=== PATIENT | male | born 1980 | race Caucasian/White ===

== ENCOUNTER 2018-02-03 21:57 | Emergency (ER) | payer BC ==
[2018-02-03 22:12] VITALS: TEMP 98.3
--- NOTE | 2018-02-03 22:44 | XR ---
EXAMINATION TYPE: XR chest 2V DATE OF EXAM: 02/03/2018 COMPARISON: NONE HISTORY: Cough and congestion TECHNIQUE: Frontal and lateral views of the chest are obtained. FINDINGS: Heart and mediastinum are normal. Lungs are clear. Diaphragm is normal. Bony thorax appear s normal. IMPRESSION: Normal chest.
--- NOTE | 2018-02-03 23:01 | ED ---
General Adult HPI - General Chief complaint: Shortness of Breath Stated complaint: SOB/poss bronchitis Time Seen by Provider: 02/03/18 22:44 Source: patient, RN notes reviewed, old records reviewed Mode of arrival: ambulatory Limitations: no limitations - History of Present Illness Initial comments: 37-year-old male with no significant past medical history presenting for evaluation of cough and URI symptoms. Patient has had progressively worsening cough over the past 3 days. His does have similar symptoms with cough, and mild sore throat. Patient has developed some central chest pain which is only present with cough and sharp in nature. He recently traveled and believes he caught this illness on the plane. No lower extremity pain or swelling. No abdominal pain nausea vomiting. Cough is dry and nonproductive. Again his has the exact same symptoms. - Related Data Home Medications Medication Instructions Recorded Confirmed Phenylephrine/Dm/Acetaminop/GG 15 ml PO Q6H PRN 02/03/18 02/03/18 [Vicks Dayquil Severe Cold-Flu] guaiFENesin-DM 100-10MG/5ML 10 ml PO Q6H PRN 02/03/18 02/03/18 [Robitussin DM] Previous Rx's Medication Instructions Recorded Albuterol Inhaler [Ventolin Hfa 1 - 2 puff INHALATION Q4HR PRN #1 02/03/18 Inhaler] inhaler Azithromycin [Zithromax Z-pack] 0 mg PO DIRECTED #6 tab 02/03/18 predniSONE 50 mg PO DAILY #5 tab 02/03/18 Allergies Allergy/AdvReac Type Severity Reaction Status Date / Time No Known Allergies Allergy Verified 02/03/18 22:37 Review of Systems ROS Statement: Those systems with pertinent positive or pertinent negative responses have been documented in the HPI. ROS Other: All systems not noted in ROS Statement are negative. Past Medical History Past Medical History: No Reported History History of Any Multi-Drug Resistant Organisms: None Reported Past Surgical History: No Surgical Hx Reported Smoking Status: Never smoker Past Alcohol Use History: Occasional Past Drug Use History: None Reported General Exam Limitations: no limitations General appearance: alert, in no apparent distress Head exam: Present: atraumatic, normocephalic Eye exam: Present: normal appearance, PERRL, EOMI ENT exam: Present: normal exam Neck exam: Present: normal inspection. Absent: tenderness, meningismus Respiratory exam: Present: other (Pronounced bronchospastic cough.). Absent: respiratory distress, rhonchi Cardiovascular Exam: Present: regular rate, normal rhythm GI/Abdominal exam: Present: soft. Absent: distended, tenderness Extremities exam: Present: normal inspection, normal capillary refill. Absent: pedal edema, calf tenderness Neurological exam: Present: alert, oriented X3, CN II-XII intact. Absent: motor sensory deficit Psychiatric exam: Present: normal affect, normal mood Skin exam: Present: warm, dry, intact. Absent: cyanosis, diaphoretic Course Vital Signs 02/03/18 22:06 Temperature 98.3 F Pulse Rate 103 H Respiratory 20 Rate Blood Pressure 156/90 O2 Sat by Pulse 98 Oximetry Medical Decision Making - Medical Decision Making 37-year-old male with bronchospastic cough and URI symptoms and fever. He does have sick contacts. His overall well-appearing. Will be treated for bronchitis and reactive airway disease. Return with worsening or changing symptoms. Patient did have recent travel, he had an airplane flight of 3-1/2 hours. He has no lower leg pain or swelling. His presentation seems entirely infectious although there is a small possibility of PE. He will repeat present with the development of any dyspnea, chest pain, or lower extremity pain or swelling. This was discussed with the patient and his . Disposition Clinical Impression: Bronchitis Disposition: HOME SELF-CARE Condition: Good Instructions: Acute Bronchitis (ED) Prescriptions: Albuterol Inhaler [Ventolin Hfa Inhaler] 1 - 2 puff INHALATION Q4HR PRN #1 inhaler PRN Reason: Shortness Of Breath Azithromycin [Zithromax Z-pack] 0 mg PO DIRECTED #6 tab predniSONE 50 mg PO DAILY #5 tab Is patient prescribed a controlled substance at d/c from ED?: No Referrals: None,Stated [Primary Care Provider] - 1-2 days Brenda Suarez MD [STAFF PHYSICIAN] - 1-2 days Time of Disposition: 23:00
[2018-02-03 23:15] VITALS: BP 170/85; PULSE 87; RESP 18
== END 2018-02-03 23:14 | disposition home or self-care (01) ==
LOC: EC 21:57
DX: J40 Bronchitis, not specified as acute or chronic (principal)
CPT/HCPCS: 71046; 99285

== ENCOUNTER 2021-05-19 18:11 | Inpatient (IN) | payer BC ==
[2021-05-19] MEDS ORDERED: DEXAMETHASONE SOD PHOSPHATE 10 MG/ML 1 ML VIAL IV STA (20:44)
[2021-05-19] MEDS: ACETAMINOPHEN TAB 500 MG TAB PO PRN (21:03)
[2021-05-19 21:33] LABS: Basophils % (A) 0 %; Eosinophils % (A) 0 %; HCT 48.9 % (39.0-53.0); HGB 16.2 gm/dL (13.0-17.5); Lymphocytes # (A) 0.5 k/uL (1.0-4.8); Lymphocytes % (A) 5 %; MCH 29.6 pg (25.0-35.0); MCHC 33.1 g/dL (31.0-37.0); MCV 89.5 fL (80.0-100.0); Mean Platelet Volume 8.7; Monocytes # (A) 0.3 k/uL (0-1.0); Monocytes % (A) 3 %; Neutrophils # (A) 9.2 k/uL (1.3-7.7); Neutrophils % (A) 91 %; Platelet Count 126 k/uL (150-450); RBC 5.46 m/uL (4.30-5.90); RDW 13.6 % (11.5-15.5); WBC 10.1 k/uL (3.8-10.6)
[2021-05-19 21:46] LABS: Partial Thromboplastin Time 26.5 sec (22.0-30.0); Prothrombin Time 10.5 sec (9.0-12.0)
[2021-05-19 21:47] LABS: ALT 80 U/L (4-49); AST 158 U/L (17-59); African American GFR (CKD) >90 (>60 ml/min/1.73 sqM); Albumin 3.7 g/dL (3.5-5.0); Alkaline Phosphatase 79 U/L (38-126); Anion Gap 12 mmol/L; Blood Urea Nitrogen 15 mg/dL (9-20); Calcium 8.8 mg/dL (8.4-10.2); Carbon Dioxide 25 mmol/L (22-30); Chloride 99 mmol/L (98-107); Glucose 218 mg/dL (74-99); LDH 1295 U/L (313-618); Magnesium 1.5 mg/dL (1.6-2.3); Non-African American GFR(CKD) >90 (>60 ml/min/1.73 sqM); Potassium 4.6 mmol/L (3.5-5.1); Sodium 136 mmol/L (137-145); Total Bilirubin 0.8 mg/dL (0.2-1.3); Total Protein 6.9 g/dL (6.3-8.2)
[2021-05-19] MEDS ORDERED: IBUPROFEN 800 MG TAB PO STA (21:56)
[2021-05-19 22:17] LABS: C Reactive Protein 17.1 mg/dL (<1.0)
--- NOTE | 2021-05-19 22:54 | XR ---
EXAMINATION TYPE: XR chest 1V portable DATE OF EXAM: 05/19/2021 COMPARISON: 02/03/2018 HISTORY: Shortness of breath TECHNIQUE: Single frontal view of the chest is obtained. FINDINGS: There is interval noticeable increase in patchy bilateral areas of infiltrate. Limited ins piration. Heart size normal. Biapical pleural thickening. No sizable pneumothorax. IMPRESSION: Interval marked worsening appearance of the chest with bilateral multifocal areas of inf iltrate suggestive of pneumonia
[2021-05-19] MEDS ORDERED: SODIUM CHLORIDE 0.9% 500 ML 500 ML IV ONE (23:00)
--- NOTE | 2021-05-19 23:08 | ED ---
General Adult HPI - General Chief complaint: Chest Pain Stated complaint: covid+, increased SOB Time Seen by Provider: 05/19/21 20:20 Source: patient, RN notes reviewed, old records reviewed Mode of arrival: ambulatory Limitations: no limitations - History of Present Illness Initial comments: Patient is a 41-year-old male with past medical history remarkable for asthma who presents emergency Department complaining of shortness of breath and worsening COVID-19 pneumonia. I evaluate the patient once he was placed in a room. Patient states that he is been expressing worsening dyspnea as well as fevers over the last 5 days since his diagnosis of COVID-19 pneumonia. He received the monoclonal antibodies has felt worse since. He denies any history of blood clots or heart disease. Patient was not vaccinated for COVID-19. Denies any nausea, vomiting. Endorses a cough productive of intermittent sputum. Denies any diarrhea. Denies any lightheadedness. States he feels fatigued. His no other acute complaints at this time. He does endorse a bilateral chest tightness that is worse with coughing. - Related Data Home Medications Medication Instructions Recorded Confirmed Acetaminophen Tab [Tylenol Tab] 500 mg PO Q6H PRN 05/19/21 05/19/21 Albuterol Sulfate [Proair Hfa] 2 puff INHALATION RT-Q6H PRN 05/19/21 05/19/21 Amoxic-Pot Clav 875-125Mg 1 tab PO Q12HR 05/19/21 05/19/21 [Augmentin 875-125] Allergies Allergy/AdvReac Type Severity Reaction Status Date / Time No Known Allergies Allergy Verified 05/19/21 22:31 Review of Systems ROS Statement: Those systems with pertinent positive or pertinent negative responses have been documented in the HPI. Review of Systems: CONST: Endorses fever EYES: Denies blurry vision ENT: Endorses nasal congestion C/V: Endorses chest tightness RESP: Endorses shortness of breath GI: Denies abdominal pain : Denies dysuria SKIN: Denies rash. MSK: Denies joint pain. NEURO: Denies headache ROS Other: All systems not noted in ROS Statement are negative. Past Medical History Past Medical History: Asthma History of Any Multi-Drug Resistant Organisms: None Reported Past Surgical History: No Surgical Hx Reported Past Psychological History: No Psychological Hx Reported Smoking Status: Former smoker Past Alcohol Use History: Occasional Past Drug Use History: None Reported General Exam - General Exam Comments Initial Comments: General: Appears in respiratory distress. He is tachypneic on room air. Patient is febrile. HEAD: Normal with no signs of head trauma. EYES: PERRLA, EOMI, conjunctiva normal, no discharge. Pupils are 3 mm and equal bilaterally. ENT: Hearing grossly intact, normal oropharynx. Mild nasal congestion. Trachea is midline. No stridor auscultated. dry mucus membranes. RESPIRATORY: Coarse breath sounds bilaterally. No wheezes appreciated. C/V: Tachycardic with a regular rhythm. S1 and S2 auscultated. No peripheral edema. Peripheral pulses are 2+ and intact throughout. ABD: Abd is soft, nontender, nondistended EXT: Normal range of motion, no obvious deformity SKIN: No rashes or lesions observed on exposed skin. NEURO: Alert and oriented 4. Limitations: no limitations Course Vital Signs 05/19/21 05/19/21 05/19/21 19:56 20:17 21:07 Temperature 104.1 F H Pulse Rate 129 H 126 H 115 H Respiratory 36 H 22 20 Rate Blood Pressure 133/83 185/92 O2 Sat by Pulse 85 L 90 L 90 L Oximetry 05/19/21 05/19/21 05/19/21 22:06 22:37 23:42 Temperature 102.4 F H 100.5 F H Pulse Rate 109 H 117 H 94 Respiratory 20 20 20 Rate Blood Pressure 177/89 172/80 O2 Sat by Pulse 90 L 93 L Oximetry Medical Decision Making - Medical Decision Making Based on the patient's presentation and physical exam, I'm concerned for acute COVID-19 infection. Patient was not immediately brought back and placed in a room, but when he was was found to be febrile, tachycardic, tachypneic and hypoxic on room air. He was immediately placed on supplemental nasal cannula 6 L, was initially saturating in the high 80% subungual 90%'s. He remained tachypneic. Respiratory therapy was called after I requested the patient be placed on high flow nasal cannula. Work of breathing improved after this. We will obtain COVID-19 laboratory studies. He'll receive Decadron, Tylenol, albuterol treatments here in the department. He was in agreement this plan.Due to the patient's suspected mild dehydration, he will be given a 500 mL fluid bolus. Care will be made to not fluid overload the patient in the setting of COVID-19 pneumonia. EKG was remarkable for sinus tachycardia but no signs of acute ischemia. Laboratory studies were remarkable for a mild thrombocytopenia of 126. A mild lactic acidosis of 2.3. A hypomagnesemia 1.5 which was replenished. Is a mildly elevated AST of 158 and ALT of 80. LDH was elevated to 1295. Troponin is negative. CRP is elevated to 17. D-dimer is within normal limits. Patient's Covid positive. Chest x-ray shows bilateral pulmonary infiltrates. I re-evaluated the patient multiple times due to his abnormal vitals and increased work of breathing. On the latest reevaluation, patient's work of breathing has improved at this point. He is now breathing approximately 20 times per minute on 10 L high flow nasal cannula saturating 93%. Patient's fever is also improving, is now down to 100.5F and his tachycardia is improved 2. I discussed with him that I would like to admit him to the hospital for further management. He was in agreement with this plan. I contacted the admitting team,[facility] for Dr. Mckeon, who accepted the admission. I recommended that we start the patient on remdesivir which has be ordered by the inpatient team. I will consult pulmonology under Dr. Jay as well as Dr. Carrasco of [place] to evaluate the patient in the morning. - Lab Data Result diagrams: 05/19/21 20:54 05/19/21 20:54 Lab Results 05/19/21 05/19/21 05/19/21 Range/Units 20:54 20:54 20:54 WBC 10.1 (3.8-10.6) k/uL RBC 5.46 (4.30-5.90) m/uL Hgb 16.2 (13.0-17.5) gm/dL Hct 48.9 (39.0-53.0) % MCV 89.5 (80.0-100.0) fL MCH 29.6 (25.0-35.0) pg MCHC 33.1 (31.0-37.0) g/dL RDW 13.6 (11.5-15.5) % Plt Count 126 L (150-450) k/uL MPV 8.7 Neutrophils % 91 % Lymphocytes % 5 % Monocytes % 3 % Eosinophils % 0 % Basophils % 0 % Neutrophils # 9.2 H (1.3-7.7) k/uL Lymphocytes # 0.5 L (1.0-4.8) k/uL Monocytes # 0.3 (0-1.0) k/uL Eosinophils # 0.0 (0-0.7) k/uL Basophils # 0.0 (0-0.2) k/uL PT 10.5 (9.0-12.0) sec INR 1.0 (<1.2) APTT 26.5 (22.0-30.0) sec D-Dimer 0.37 (<0.60) mg/L FEU Sodium 136 L (137-145) mmol/L Potassium 4.6 (3.5-5.1) mmol/L Chloride 99 (98-107) mmol/L Carbon Dioxide 25 (22-30) mmol/L Anion Gap 12 mmol/L BUN 15 (9-20) mg/dL Creatinine 0.97 (0.66-1.25) mg/dL Est GFR (CKD-EPI)AfAm >90 (>60 ml/min/1.73 sqM) Est GFR (CKD-EPI)NonAf >90 (>60 ml/min/1.73 sqM) Glucose 218 H (74-99) mg/dL Lactic Ac Sepsis Rflx Plasma Lactic Acid Devyn (0.7-2.0) mmol/L Calcium 8.8 (8.4-10.2) mg/dL Magnesium 1.5 L (1.6-2.3) mg/dL Total Bilirubin 0.8 (0.2-1.3) mg/dL AST 158 H (17-59) U/L ALT 80 H (4-49) U/L Alkaline Phosphatase 79 (38-126) U/L Lactate Dehydrogenase 1295 H (313-618) U/L Troponin I (0.000-0.034) ng/mL C-Reactive Protein 17.1 H (<1.0) mg/dL Total Protein 6.9 (6.3-8.2) g/dL Albumin 3.7 (3.5-5.0) g/dL Coronavirus (PCR) (Not Detectd) 05/19/21 05/19/21 05/19/21 Range/Units 20:54 20:54 20:54 WBC (3.8-10.6) k/uL RBC (4.30-5.90) m/uL Hgb (13.0-17.5) gm/dL Hct (39.0-53.0) % MCV (80.0-100.0) fL MCH (25.0-35.0) pg MCHC (31.0-37.0) g/dL RDW (11.5-15.5) % Plt Count (150-450) k/uL MPV Neutrophils % % Lymphocytes % % Monocytes % % Eosinophils % % Basophils % % Neutrophils # (1.3-7.7) k/uL Lymphocytes # (1.0-4.8) k/uL Monocytes # (0-1.0) k/uL Eosinophils # (0-0.7) k/uL Basophils # (0-0.2) k/uL PT (9.0-12.0) sec INR (<1.2) APTT (22.0-30.0) sec D-Dimer (<0.60) mg/L FEU Sodium (137-145) mmol/L Potassium (3.5-5.1) mmol/L Chloride (98-107) mmol/L Carbon Dioxide (22-30) mmol/L Anion Gap mmol/L BUN (9-20) mg/dL Creatinine (0.66-1.25) mg/dL Est GFR (CKD-EPI)AfAm (>60 ml/min/1.73 sqM) Est GFR (CKD-EPI)NonAf (>60 ml/min/1.73 sqM) Glucose (74-99) mg/dL Lactic Ac Sepsis Rflx Plasma Lactic Acid Devyn 2.3 H* (0.7-2.0) mmol/L Calcium (8.4-10.2) mg/dL Magnesium (1.6-2.3) mg/dL Total Bilirubin (0.2-1.3) mg/dL AST (17-59) U/L ALT (4-49) U/L Alkaline Phosphatase (38-126) U/L Lactate Dehydrogenase (313-618) U/L Troponin I <0.012 (0.000-0.034) ng/mL C-Reactive Protein (<1.0) mg/dL Total Protein (6.3-8.2) g/dL Albumin (3.5-5.0) g/dL Coronavirus (PCR) Detected A (Not Detectd) 05/19/21 Range/Units 21:45 WBC (3.8-10.6) k/uL RBC (4.30-5.90) m/uL Hgb (13.0-17.5) gm/dL Hct (39.0-53.0) % MCV (80.0-100.0) fL MCH (25.0-35.0) pg MCHC (31.0-37.0) g/dL RDW (11.5-15.5) % Plt Count (150-450) k/uL MPV Neutrophils % % Lymphocytes % % Monocytes % % Eosinophils % % Basophils % % Neutrophils # (1.3-7.7) k/uL Lymphocytes # (1.0-4.8) k/uL Monocytes # (0-1.0) k/uL Eosinophils # (0-0.7) k/uL Basophils # (0-0.2) k/uL PT (9.0-12.0) sec INR (<1.2) APTT (22.0-30.0) sec D-Dimer (<0.60) mg/L FEU Sodium (137-145) mmol/L Potassium (3.5-5.1) mmol/L Chloride (98-107) mmol/L Carbon Dioxide (22-30) mmol/L Anion Gap mmol/L BUN (9-20) mg/dL Creatinine (0.66-1.25) mg/dL Est GFR (CKD-EPI)AfAm (>60 ml/min/1.73 sqM) Est GFR (CKD-EPI)NonAf (>60 ml/min/1.73 sqM) Glucose (74-99) mg/dL Lactic Ac Sepsis Rflx Y Plasma Lactic Acid Devyn (0.7-2.0) mmol/L Calcium (8.4-10.2) mg/dL Magnesium (1.6-2.3) mg/dL Total Bilirubin (0.2-1.3) mg/dL AST (17-59) U/L ALT (4-49) U/L Alkaline Phosphatase (38-126) U/L Lactate Dehydrogenase (313-618) U/L Troponin I (0.000-0.034) ng/mL C-Reactive Protein (<1.0) mg/dL Total Protein (6.3-8.2) g/dL Albumin (3.5-5.0) g/dL Coronavirus (PCR) (Not Detectd) - EKG Data -: EKG Interpreted by Me EKG Comments: 12-lead Electrocardiogram Interpretation Note EKG was reviewed and interpreted by myself. 12-lead ECG performed at 2008 is interpreted by me as revealing sinus tachycardia at a rate of 117 beats per minute. [place] is normal. [place] interval is 136 ms, QRS duration is 60 ms, QTc is 398 ms.. There were no ST or T wave abnormalities to suggest myocardial ischem ia or injury. R wave progression across the precordium was satisfactory. By my interpretation this EKG is non-diagnostic for acute ischemia. Critical Care Time Critical Care Time: Yes Total Critical Care Time: 30 Disposition Clinical Impression: Pneumonia due to COVID-19 virus, Acute respiratory failure with hypoxia, Lactic acidosis, Hypomagnesemia, Sinus tachycardia, Febrile illness, acute, Dehydration Disposition: ADMITTED IP TO THIS HOSP Condition: Serious
[2021-05-20] MEDS ORDERED: MAGNESIUM SULFATE-D5W PMX 1 GM in DEXTROSE/WATER 1 100ML.BAG IVPB ONE (00:04)
--- NOTE | 2021-05-20 00:28 | ED ---
Medical Decision Making - Lab Data Result diagrams: 05/19/21 20:54 05/19/21 20:54 Lab Results 05/19/21 05/19/21 05/19/21 Range/Units 20:54 20:54 20:54 WBC 10.1 (3.8-10.6) k/uL RBC 5.46 (4.30-5.90) m/uL Hgb 16.2 (13.0-17.5) gm/dL Hct 48.9 (39.0-53.0) % MCV 89.5 (80.0-100.0) fL MCH 29.6 (25.0-35.0) pg MCHC 33.1 (31.0-37.0) g/dL RDW 13.6 (11.5-15.5) % Plt Count 126 L (150-450) k/uL MPV 8.7 Neutrophils % 91 % Lymphocytes % 5 % Monocytes % 3 % Eosinophils % 0 % Basophils % 0 % Neutrophils # 9.2 H (1.3-7.7) k/uL Lymphocytes # 0.5 L (1.0-4.8) k/uL Monocytes # 0.3 (0-1.0) k/uL Eosinophils # 0.0 (0-0.7) k/uL Basophils # 0.0 (0-0.2) k/uL PT 10.5 (9.0-12.0) sec INR 1.0 (<1.2) APTT 26.5 (22.0-30.0) sec D-Dimer 0.37 (<0.60) mg/L FEU Sodium 136 L (137-145) mmol/L Potassium 4.6 (3.5-5.1) mmol/L Chloride 99 (98-107) mmol/L Carbon Dioxide 25 (22-30) mmol/L Anion Gap 12 mmol/L BUN 15 (9-20) mg/dL Creatinine 0.97 (0.66-1.25) mg/dL Est GFR (CKD-EPI)AfAm >90 (>60 ml/min/1.73 sqM) Est GFR (CKD-EPI)NonAf >90 (>60 ml/min/1.73 sqM) Glucose 218 H (74-99) mg/dL Lactic Ac Sepsis Rflx Plasma Lactic Acid Devyn (0.7-2.0) mmol/L Calcium 8.8 (8.4-10.2) mg/dL Magnesium 1.5 L (1.6-2.3) mg/dL Total Bilirubin 0.8 (0.2-1.3) mg/dL AST 158 H (17-59) U/L ALT 80 H (4-49) U/L Alkaline Phosphatase 79 (38-126) U/L Lactate Dehydrogenase 1295 H (313-618) U/L Troponin I (0.000-0.034) ng/mL C-Reactive Protein 17.1 H (<1.0) mg/dL Total Protein 6.9 (6.3-8.2) g/dL Albumin 3.7 (3.5-5.0) g/dL Coronavirus (PCR) (Not Detectd) 05/19/21 05/19/21 05/19/21 Range/Units 20:54 20:54 20:54 WBC (3.8-10.6) k/uL RBC (4.30-5.90) m/uL Hgb (13.0-17.5) gm/dL Hct (39.0-53.0) % MCV (80.0-100.0) fL MCH (25.0-35.0) pg MCHC (31.0-37.0) g/dL RDW (11.5-15.5) % Plt Count (150-450) k/uL MPV Neutrophils % % Lymphocytes % % Monocytes % % Eosinophils % % Basophils % % Neutrophils # (1.3-7.7) k/uL Lymphocytes # (1.0-4.8) k/uL Monocytes # (0-1.0) k/uL Eosinophils # (0-0.7) k/uL Basophils # (0-0.2) k/uL PT (9.0-12.0) sec INR (<1.2) APTT (22.0-30.0) sec D-Dimer (<0.60) mg/L FEU Sodium (137-145) mmol/L Potassium (3.5-5.1) mmol/L Chloride (98-107) mmol/L Carbon Dioxide (22-30) mmol/L Anion Gap mmol/L BUN (9-20) mg/dL Creatinine (0.66-1.25) mg/dL Est GFR (CKD-EPI)AfAm (>60 ml/min/1.73 sqM) Est GFR (CKD-EPI)NonAf (>60 ml/min/1.73 sqM) Glucose (74-99) mg/dL Lactic Ac Sepsis Rflx Plasma Lactic Acid Devyn 2.3 H* (0.7-2.0) mmol/L Calcium (8.4-10.2) mg/dL Magnesium (1.6-2.3) mg/dL Total Bilirubin (0.2-1.3) mg/dL AST (17-59) U/L ALT (4-49) U/L Alkaline Phosphatase (38-126) U/L Lactate Dehydrogenase (313-618) U/L Troponin I <0.012 (0.000-0.034) ng/mL C-Reactive Protein (<1.0) mg/dL Total Protein (6.3-8.2) g/dL Albumin (3.5-5.0) g/dL Coronavirus (PCR) Detected A (Not Detectd) 05/19/21 Range/Units 21:45 WBC (3.8-10.6) k/uL RBC (4.30-5.90) m/uL Hgb (13.0-17.5) gm/dL Hct (39.0-53.0) % MCV (80.0-100.0) fL MCH (25.0-35.0) pg MCHC (31.0-37.0) g/dL RDW (11.5-15.5) % Plt Count (150-450) k/uL MPV Neutrophils % % Lymphocytes % % Monocytes % % Eosinophils % % Basophils % % Neutrophils # (1.3-7.7) k/uL Lymphocytes # (1.0-4.8) k/uL Monocytes # (0-1.0) k/uL Eosinophils # (0-0.7) k/uL Basophils # (0-0.2) k/uL PT (9.0-12.0) sec INR (<1.2) APTT (22.0-30.0) sec D-Dimer (<0.60) mg/L FEU Sodium (137-145) mmol/L Potassium (3.5-5.1) mmol/L Chloride (98-107) mmol/L Carbon Dioxide (22-30) mmol/L Anion Gap mmol/L BUN (9-20) mg/dL Creatinine (0.66-1.25) mg/dL Est GFR (CKD-EPI)AfAm (>60 ml/min/1.73 sqM) Est GFR (CKD-EPI)NonAf (>60 ml/min/1.73 sqM) Glucose (74-99) mg/dL Lactic Ac Sepsis Rflx Y Plasma Lactic Acid Devyn (0.7-2.0) mmol/L Calcium (8.4-10.2) mg/dL Magnesium (1.6-2.3) mg/dL Total Bilirubin (0.2-1.3) mg/dL AST (17-59) U/L ALT (4-49) U/L Alkaline Phosphatase (38-126) U/L Lactate Dehydrogenase (313-618) U/L Troponin I (0.000-0.034) ng/mL C-Reactive Protein (<1.0) mg/dL Total Protein (6.3-8.2) g/dL Albumin (3.5-5.0) g/dL Coronavirus (PCR) (Not Detectd) Critical Care Time Critical Care Time: Yes Total Critical Care Time: 30 Critical Care Time: Upon my evaluation, this patient had a high probability of imminent or life- threatening deterioration due to hypoxic respiratory failure from Covid 19 pneum onia, which required my direct attention, intervention, and personal management. I have personally provided 30 minutes of critical care time exclusive of time spent on separately billable procedures. Time includes review of laboratory data, radiology results, discussion with consultants, and monitoring for potential decompensation. Interventions were performed as documented in my note. Disposition Clinical Impression: Pneumonia due to COVID-19 virus, Acute respiratory failure with hypoxia, Lactic acidosis, Hypomagnesemia, Sinus tachycardia, Febrile illness, acute, Dehydration Disposition: ADMITTED IP TO THIS HOSP Condition: Serious
[2021-05-20] MEDS: SYMBICORT 160-4.5 MCG INHALER INHALATION SCH ×2 (08:13→20:30)
--- NOTE | 2021-05-20 09:38 | P.CNPUL ---
History of Present Illness Consult date: 05/20/21 Requesting physician: Edward Mckeon Reason for consult: dyspnea, cough, asthma, hypoxemia, pneumonia, abnormal CXR/CT Chief complaint: Shortness of breath. History of present illness: Pulmonary/critical care consultation dated 05/20/2021. 41-year-old male presents to the emergency department on May 19, complaining of chest pain, shortness of breath, fever, soreness, and cough. The patient apparently states that he was tested positive for coronavirus on May 13. He was actually sick one or 2 days prior to that. The patient came to the emergency room because his symptoms continued to get worse, and were not getting any better. The patient is on 10 L high flow nasal O2. Not receiving any IV fluids. The patient does apparently have a history of asthma, and a previous history of tobacco use. The patient was seen in the emergency department and admitted. We saw him in the emergency room, room 27. The patient denied any GI complaints. White count 10.1, hemoglobin 16.2, hematocrit 48.9, and platelet count 126,000. PT, INR, PTT, and d-dimer were all normal. Sodium 136, p otassium, chloride, CO2, anion gap, BUN, and creatinine are all normal. Lactic acid was 2.3, repeat 1.4. AST 158, ALT 80. LDH 1295. C-reactive protein 17.1. COVID testing was positive. Chest x-ray, which we cannot see, consistent with diffuse bilateral infiltrates. The patient is unvaccinated. Review of Systems REVIEW OF SYSTEMS: CONSTITUTIONAL: Fever, chills, soreness, myalgias. NEUROLOGIC: [ Negative.] HEENT: [ Negative.] CARDIAC: [Negative.] PULMONARY: Shortness of breath, cough, chest congestion, minimal phlegm. GI: [Negative.] : [Negative.] RHEUMATOLOGIC: [ Negative.] IMMUNOLOGIC: [ Negative.] ENDOCRINE: [Negative. ] DERMATOLOGIC: [Negative.] Past Medical History Past Medical History: Asthma History of Any Multi-Drug Resistant Organisms: None Reported Past Surgical History: No Surgical Hx Reported Past Psychological History: No Psychological Hx Reported Smoking Status: Former smoker Past Alcohol Use History: Occasional Past Drug Use History: None Reported Medications and Allergies Home Medications Medication Instructions Recorded Confirmed Type Acetaminophen Tab [Tylenol Tab] 500 mg PO Q6H PRN 05/19/21 05/19/21 History Albuterol Sulfate [Proair Hfa] 2 puff INHALATION RT-Q6H PRN 05/19/21 05/19/21 History Amoxic-Pot Clav 875-125Mg 1 tab PO Q12HR 05/19/21 05/19/21 History [Augmentin 875-125] Allergies Allergy/AdvReac Type Severity Reaction Status Date / Time No Known Allergies Allergy Verified 05/19/21 22:31 Physical Exam Osteopathic Statement: *. No significant issues noted on an osteopathic stru ctural exam other than those noted in the History and Physical/Consult. Vitals: Vital Signs Temp Pulse Resp BP Pulse Ox 05/20/21 05:41 79 20 150/87 91 L 05/20/21 04:00 93 L 05/20/21 02:12 77 22 93 L 05/20/21 01:27 97.4 F L 84 20 138/79 94 L 05/19/21 23:42 100.5 F H 94 20 172/80 93 L 05/19/21 22:37 102.4 F H 117 H 20 90 L 05/19/21 22:06 109 H 20 177/89 05/19/21 21:07 115 H 20 185/92 90 L 05/19/21 20:17 126 H 22 90 L 05/19/21 19:56 104.1 F H 129 H 36 H 133/83 85 L Intake and Output 05/19/21 05/20/21 05/20/21 22:59 06:59 14:59 Intake Total 1060 Balance 1060 Intake: Intake, IV Titration 100 Amount Magnesium Sulfate-D5w Pmx 100 1 gm In Dextrose/Water 1 100ml.bag @ 100 mls/hr IVPB ONCE ONE Rx#: [id number] Oral 960 Other: # Voids 2 Weight 134.717 kg No acute distress, oriented 3. Nasal O2 in place at 10 L. HEENT examination is grossly unremarkable. Neck supple. Full range of motion. No adenopathy thyromegaly or neck vein distention. Cardiovascular examination reveals regular rhythm rate. S1-S2 normal. No S3 or S4. No discernible murmur noted. Heart rate 79 bpm. Heart sounds are distant. Lungs reveal coarse bilateral rhonchi. No wheezes or crackles. Breath sounds equal bilaterally. Saturations are 91% on 10 L high flow O2. Abdomen soft bowel sounds are heard. No masses or tenderness. Extremities are intact. No cyanosis clubbing or edema. Skin is without rash or lesion. Neurologic examination is brief but nonfocal. Results - Laboratory Findings CBC and BMP: 05/19/21 20:54 05/19/21 20:54 PT/INR, D-dimer PT 10.5 sec (9.0-12.0) 05/19/21 20:54 INR 1.0 (<1.2) 05/19/21 20:54 D-Dimer 0.37 mg/L FEU (<0.60) 05/19/21 20:54 Abnormal lab findings: Abnormal Labs 05/19/21 05/19/21 05/19/21 20:54 20:54 20:54 Plt Count 126 L Neutrophils # 9.2 H Lymphocytes # 0.5 L Sodium 136 L Glucose 218 H Plasma Lactic Acid Devyn 2.3 H* Magnesium 1.5 L AST 158 H ALT 80 H Lactate Dehydrogenase 1295 H C-Reactive Protein 17.1 H Coronavirus (PCR) 05/19/21 20:54 Plt Count Neutrophils # Lymphocytes # Sodium Glucose Plasma Lactic Acid Devyn Magnesium AST ALT Lactate Dehydrogenase C-Reactive Protein Coronavirus (PCR) Detected A - Diagnostic Findings Chest x-ray: image reviewed Assessment and Plan Assessment: Acute hypoxemic respiratory failure secondary to coronavirus associated pneumonia. History of chronic bronchial asthma. Plan: Plan dated 05/20/2021. The patient will be treated in standard fashion, and will receive vitamin C, vit nagy D3, and zinc. He will also receive Decadron, and Lovenox. Also, because of his high oxygen requirements, the patient will get a monoclonal antibody against interleukin-6 called Baricitinib. We will also add an albuterol inhaler, as well as Symbicort 160/4.5, 2 puffs twice a day. Additional recommendations and suggestions are forthcoming. Hopefully, the patient will turn around. Additional recommendations and suggestions are forthcoming. Prognosis is guarded. Time with Patient: Greater than 30
[2021-05-20] MEDS: ASCORBIC ACID 500 MG TAB PO SCH (09:42)
[2021-05-20] MEDS: ENOXAPARIN 40 MG/0.4 ML SYRINGE SQ SCH (09:43)
[2021-05-20] MEDS: ZINC SULFATE 220 MG CAP PO SCH (09:43)
[2021-05-20] MEDS: DEXAMETHASONE SOD PHOSPHATE 10 MG/ML 1 ML VIAL IV SCH ×2 (09:43→21:49)
[2021-05-20] MEDS: CHOLECALCIFEROL 25 MCG (1000 IU) TABLET PO SCH (09:44)
[2021-05-20] MEDS: BARICITINIB 2 MG TABLET PO SCH (09:44)
--- NOTE | 2021-05-21 00:29 | P.CONS ---
History of Present Illness - Reason for Consult Consult date: 05/20/21 covid 19 pneumonia Requesting physician: Edward Mckeon - Chief Complaint shortness of breath x 5 days - History of Present Illness History of present illness : Patient is 41-year-old male who is not vaccinated for COVID-19 presenting to the ER last night for evaluation of increasing shortness of breath patient symptoms started about 5 days ago and this patient who has received monoclonal antibodies however patient symptoms will get worse has been complaining of increasing shortness of breath on minimal exertion did have low O2 sat the patient also have a cough which is moderate intensity has not been up any sputum. Denies having any nausea or vomiting no a bdominal pain he did have some diarrhea on presentation to the hospital patient did have a fever of 104 F patient noticed to be hypoxic with O2 sats of 85% pneumonia currently requiring high flow oxygen patient did have a normal white count with a lymphopenia lactic acid is mildly elevated kidney function was normal liver exams are elevated roca PCR came back positive blood culture (currently pending patient did have a chest x-ray interval marked worsening appearance of the chest with bilateral multifocal areas of infiltrate patient has been admitted to hospital infectious was consulted for further management, patient evaluated by pulmonary and has been started on baricinitab Review of system: CONSTITUTIONAL: Positive for weakness along with the fever. EYES: No complaint. ENT: No complaint. RESPIRATORY: As per history of present illness CARDIOVASCULAR: No complaint. GENITOURINARY: No complaint. GASTROINTESTINAL as per history of present illness. MUSCULOSKELETAL: No complaint. INTEGUMENTARY: No complaint. PSYCHOLOGIC: No complaint. ENDOCRINE: No complaint. NEUROLOGIC: No complaint. Past medical history : Reviewed, documented below Past surgical history : Reviewed, documented below Social history: Reviewed, documented below Medications: Reviewed, as documented below EXAMINATION: Vital sigans= Reviewed and documented below GENERAL DESCRIPTION: Middle-aged male lying in bed, no distress. No tachypnea or accessory muscle of respiration use. HEENT: Shows Pallor , no scleral icterus. Oral mucous membrane is dry. NECK: Trachea central, no thyromegaly. LUNGS: Unlabored breathing. Coarse breath sounds bilaterally. No wheeze or crackle. HEART: S1, S2, regular rate and rhythm. ABDOMEN: Soft, no tenderness , guarding or rigidity EXTREMITIES: No edema of feet. SKIN: No rash, no masses palpable. NEUROLOGICAL: The patient is awake, alert, oriented x3, mood and affect normal. LABS AND RADIOLOGY: Reviewed results see below Assessment : Patient presented to hospital with acute respiratory failure from COVID-19 pneumonia in this patient who did have a extensive pneumonia on the chest x-ray and significant hypoxemia requiring high flow oxygen and this patient has failed respond to the monoclonal antibody therapy with concern for possible cytokine storm Plan: 1-patient to continue with the Baricitinab 2-dexamethasone Lovenox and ascorbic acid 3-droplet isolation and respiratory support We will follow on clinical condition and cultures to further adjust medication if needed Thank you for this consultation we will follow the patient along with you Past Medical History Past Medical History: Asthma History of Any Multi-Drug Resistant Organisms: None Reported Past Surgical History: No Surgical Hx Reported Past Psychological History: No Psychological Hx Reported Smoking Status: Former smoker Past Alcohol Use History: Occasional Past Drug Use History: None Reported Medications and Allergies Home Medications Medication Instructions Recorded Confirmed Type Acetaminophen Tab [Tylenol Tab] 500 mg PO Q6H PRN 05/19/21 05/19/21 History Albuterol Sulfate [Proair Hfa] 2 puff INHALATION RT-Q6H PRN 05/19/21 05/19/21 History Amoxic-Pot Clav 875-125Mg 1 tab PO Q12HR 05/19/21 05/19/21 History [Augmentin 875-125] Allergies Allergy/AdvReac Type Severity Reaction Status Date / Time No Known Allergies Allergy Verified 05/19/21 22:31 Physical Exam Vitals: Vital Signs Temp Pulse Resp BP Pulse Ox 05/20/21 09:46 83 18 136/79 90 L 05/20/21 05:41 79 20 150/87 91 L 05/20/21 04:00 93 L 05/20/21 02:12 77 22 93 L 05/20/21 01:27 97.4 F L 84 20 138/79 94 L 05/19/21 23:42 100.5 F H 94 20 172/80 93 L 05/19/21 22:37 102.4 F H 117 H 20 90 L 05/19/21 22:06 109 H 20 177/89 05/19/21 21:07 115 H 20 185/92 90 L 05/19/21 20:17 126 H 22 90 L 05/19/21 19:56 104.1 F H 129 H 36 H 133/83 85 L Intake and Output 05/19/21 05/20/21 05/20/21 22:59 06:59 14:59 Intake Total 1060 Balance 1060 Intake: Intake, IV Titration 100 Amount Magnesium Sulfate-D5w Pmx 100 1 gm In Dextrose/Water 1 100ml.bag @ 100 mls/hr IVPB ONCE ONE Rx#: [id number] Oral 960 Other: # Voids 2 Weight 134.717 kg Results CBC & Chem 7: 05/19/21 20:54 05/19/21 20:54 Labs: Abnormal Lab Results - Last 24 Hours (Table) 05/19/21 05/19/21 05/19/21 Range/Units 20:54 20:54 20:54 Plt Count 126 L (150-450) k/uL Neutrophils # 9.2 H (1.3-7.7) k/uL Lymphocytes # 0.5 L (1.0-4.8) k/uL Sodium 136 L (137-145) mmol/L Glucose 218 H (74-99) mg/dL Plasma Lactic Acid Devyn 2.3 H* (0.7-2.0) mmol/L Magnesium 1.5 L (1.6-2.3) mg/dL AST 158 H (17-59) U/L ALT 80 H (4-49) U/L Lactate Dehydrogenase 1295 H (313-618) U/L C-Reactive Protein 17.1 H (<1.0) mg/dL Coronavirus (PCR) (Not Detectd) 05/19/21 Range/Units 20:54 Plt Count (150-450) k/uL Neutrophils # (1.3-7.7) k/uL Lymphocytes # (1.0-4.8) k/uL Sodium (137-145) mmol/L Glucose (74-99) mg/dL Plasma Lactic Acid Devyn (0.7-2.0) mmol/L Magnesium (1.6-2.3) mg/dL AST (17-59) U/L ALT (4-49) U/L Lactate Dehydrogenase (313-618) U/L C-Reactive Protein (<1.0) mg/dL Coronavirus (PCR) Detected A (Not Detectd)
--- NOTE | 2021-05-21 00:30 | P.HPIM ---
History of Present Illness H&P Date: 05/20/21 Chief Complaint: Shortness of breath Patient is a 41-year-old male with a known history of asthma and previous history of smoking presents to ER with complaints of worsening shortness of breath, cough and fever. Patient has been sick for the past 1 week. patient was febrile with T-max of 104.1 on admission and was tachycardic and tachypneic with pulse ox 85% on room air on admission. Patient was tested positive for COVID-19 infection in May 13, 2021. Patient was symptomatic for about 2 days prior to his test. Patient was taking [id number] medications and breathing status is not improving. Presented to ER due to worsening symptoms. On admission patient was hypoxic. Chest x-ray showed interval marked worsening appearance of the chest with bilateral multifocal areas of infiltrate suggestive of pneumonia. EKG showed sinus tachycardia. Laboratory data showed WBC 10.1 hemoglobin 16.1 platelets 126 lymphocytes 0.5 Sodium 136 potassium 4.6 chloride 99 BUN 15 and creatinine 0.97 D-dimer level is 0.37 Lactic acid 2.3 magnesium 1.5 AST 158 ALT 88 and alk phos 79 LDH 1295 and CRP 17.1 and COVID-19 PCR detected. Review of Systems Constitutional: Patient does have fever and chills. Generalized weakness and malaise.. Abdomen:Patient does have cough with sputum production. Does have worsening shortness of breath.. Cardiovascular: Patient denies any chest pain or short of breath no palpitations. Respiratory: patient denied any cough or sputum production. No shortness of breath Neurologic: Patient denied any numbness or tingling headache. Musculoskeletal: Patient denies any complaints of joint swelling or deformity. Skin: Negative Psychiatric: Negative Endocrine: No heat or cold intolerance. No recent weight gain. Genitourinary: No dysuria or hematuria. All other 14 point ROS negative except the above Past Medical History Past Medical History: Asthma History of Any Multi-Drug Resistant Organisms: None Reported Past Surgical History: No Surgical Hx Reported Past Psychological History: No Psychological Hx Reported Smoking Status: Former smoker Past Alcohol Use History: Occasional Past Drug Use History: None Reported Medications and Allergies Home Medications Medication Instructions Recorded Confirmed Type Acetaminophen Tab [Tylenol Tab] 500 mg PO Q6H PRN 05/19/21 05/19/21 History Albuterol Sulfate [Proair Hfa] 2 puff INHALATION RT-Q6H PRN 05/19/21 05/19/21 History Amoxic-Pot Clav 875-125Mg 1 tab PO Q12HR 05/19/21 05/19/21 History [Augmentin 875-125] Allergies Allergy/AdvReac Type Severity Reaction Status Date / Time No Known Allergies Allergy Verified 05/19/21 22:31 Physical Exam Vitals: Vital Signs Temp Pulse Resp BP Pulse Ox 05/20/21 09:46 83 18 136/79 90 L 05/20/21 05:41 79 20 150/87 91 L 05/20/21 04:00 93 L 05/20/21 02:12 77 22 93 L 05/20/21 01:27 97.4 F L 84 20 138/79 94 L 05/19/21 23:42 100.5 F H 94 20 172/80 93 L 05/19/21 22:37 102.4 F H 117 H 20 90 L 05/19/21 22:06 109 H 20 177/89 05/19/21 21:07 115 H 20 185/92 90 L 05/19/21 20:17 126 H 22 90 L 05/19/21 19:56 104.1 F H 129 H 36 H 133/83 85 L Intake and Output 05/19/21 05/20/21 05/20/21 22:59 06:59 14:59 Intake Total 1060 Balance 1060 Intake: Intake, IV Titration 100 Amount Magnesium Sulfate-D5w Pmx 100 1 gm In Dextrose/Water 1 100ml.bag @ 100 mls/hr IVPB ONCE ONE Rx#: [id number] Oral 960 Other: # Voids 2 Weight 134.717 kg PHYSICAL EXAMINATION: Patient is lying in the bed comfortably, no acute distress, awake alert and oriented.. HEENT: Normocephalic. Neck is supple. Pupils reactive. Nostrils clear. Oral cavity is moist. Neck reveals no JVD, carotid bruits, or thyromegaly. CHEST EXAMINATION: Trachea is central. Symmetrical expansion. Scattered coarse sounds. No wheezing. Nonlabored breathing.. CARDIAC: Normal S1, S2 with no gallops. No murmurs ABDOMEN: Soft. Bowel sounds normal. No organomegaly. No abdominal bruits. Extremities: reveal no edema. No clubbing or cyanosis Neurologically awake, alert, oriented x3 with well-coordinated movements. No focal deficits noted Skin: No rash or skin lesions. Psychiatric: Cooperative. Nonsuicidal Musculoskeletal: No joint swelling or deformity. Normal range of motion. Results CBC & Chem 7: 05/19/21 20:54 05/19/21 20:54 Labs: Abnormal Lab Results - Last 24 Hours (Table) 05/19/21 05/19/21 05/19/21 Range/Units 20:54 20:54 20:54 Plt Count 126 L (150-450) k/uL Neutrophils # 9.2 H (1.3-7.7) k/uL Lymphocytes # 0.5 L (1.0-4.8) k/uL Sodium 136 L (137-145) mmol/L Glucose 218 H (74-99) mg/dL Plasma Lactic Acid Devyn 2.3 H* (0.7-2.0) mmol/L Magnesium 1.5 L (1.6-2.3) mg/dL AST 158 H (17-59) U/L ALT 80 H (4-49) U/L Lactate Dehydrogenase 1295 H (313-618) U/L C-Reactive Protein 17.1 H (<1.0) mg/dL Coronavirus (PCR) (Not Detectd) 05/19/21 Range/Units 20:54 Plt Count (150-450) k/uL Neutrophils # (1.3-7.7) k/uL Lymphocytes # (1.0-4.8) k/uL Sodium (137-145) mmol/L Glucose (74-99) mg/dL Plasma Lactic Acid Devyn (0.7-2.0) mmol/L Magnesium (1.6-2.3) mg/dL AST (17-59) U/L ALT (4-49) U/L Lactate Dehydrogenase (313-618) U/L C-Reactive Protein (<1.0) mg/dL Coronavirus (PCR) Detected A (Not Detectd) Thrombosis Risk Factor Assmnt - DVT/VTE Prophylaxis DVT/VTE Prophylaxis: Pharmacologic Prophylaxis ordered Assessment and Plan Assessment: Acute hypoxic respiratory failure secondary to COVID-19 pneumonia Lactic acidosis Hypomagnesemia Elevated LDH and CRP level due to COVID-19 infection Asthma Prior history of smoking DVT prophylaxis Plan: Patient will be continued on oxygen supplementation currently requiring 10 L via nasal cannula. Continue with duo nebs and dexamethasone and Lovenox. Patient was started baricitinib as per pulmonary recommendations. Continue to monitor respiratory status closely. Continue with ascorbic acid, zinc and vitamin D. Follow-up closely. Time with Patient: Greater than 30
[2021-05-21 06:33] LABS: Basophils % (A) 0 %; Eosinophils % (A) 0 %; HCT 45.5 % (39.0-53.0); HGB 14.9 gm/dL (13.0-17.5); Lymphocytes # (A) 0.9 k/uL (1.0-4.8); Lymphocytes % (A) 7 %; MCH 29.7 pg (25.0-35.0); MCHC 32.6 g/dL (31.0-37.0); Mean Platelet Volume 8.4; Monocytes # (A) 0.5 k/uL (0-1.0); Monocytes % (A) 4 %; Neutrophils # (A) 12.2 k/uL (1.3-7.7); Neutrophils % (A) 89 %; Platelet Count 174 k/uL (150-450); RDW 13.8 % (11.5-15.5); WBC 13.8 k/uL (3.8-10.6)
[2021-05-21 06:55] LABS: ALT 61 U/L (4-49); AST 87 U/L (17-59); African American GFR (CKD) >90 (>60 ml/min/1.73 sqM); Albumin 3.1 g/dL (3.5-5.0); Albumin/Globulin Ratio 1.1; Alkaline Phosphatase 77 U/L (38-126); Anion Gap 8 mmol/L; Blood Urea Nitrogen 24 mg/dL (9-20); Calcium 8.9 mg/dL (8.4-10.2); Carbon Dioxide 28 mmol/L (22-30); Chloride 104 mmol/L (98-107); Globulin 2.8 g/dL; Glucose 339 mg/dL (74-99); Non-African American GFR(CKD) >90 (>60 ml/min/1.73 sqM); Potassium 4.7 mmol/L (3.5-5.1); Sodium 140 mmol/L (137-145); Total Bilirubin 0.5 mg/dL (0.2-1.3); Total Protein 5.9 g/dL (6.3-8.2)
[2021-05-21] MEDS: SYMBICORT 160-4.5 MCG INHALER INHALATION SCH ×2 (08:21→19:39)
[2021-05-21] MEDS: ALBUTEROL HFA INHALER INHALATION PRN ×4 (08:21→19:39)
[2021-05-21] MEDS: BARICITINIB 2 MG TABLET PO SCH (09:01)
[2021-05-21] MEDS: CHOLECALCIFEROL 25 MCG (1000 IU) TABLET PO SCH (09:02)
[2021-05-21] MEDS: ASCORBIC ACID 500 MG TAB PO SCH (09:02)
[2021-05-21] MEDS: DEXAMETHASONE SOD PHOSPHATE 10 MG/ML 1 ML VIAL IV SCH ×2 (09:02→21:33)
[2021-05-21] MEDS: ENOXAPARIN 40 MG/0.4 ML SYRINGE SQ SCH (09:02)
[2021-05-21] MEDS: ZINC SULFATE 220 MG CAP PO SCH (09:02)
--- NOTE | 2021-05-21 14:11 | XR ---
EXAMINATION TYPE: XR chest 1V portable DATE OF EXAM: 05/21/2021 COMPARISON: 05/19/2021 HISTORY: Cough TECHNIQUE: Single frontal view of the chest is obtained. FINDINGS: Bilateral airspace and multifocal consolidations are stable. Heart size stable. No pneumot horax.. Curvature of the spine with hypertrophic changes. Tiny effusions not excluded. IMPRESSION: Bilateral patchy infiltrate stable.
--- NOTE | 2021-05-21 14:50 | P.PN ---
Subjective Progress Note Date: 05/21/21 Principal diagnosis: Dyspnea, cough, hypoxia, pneumonia 41-year-old male presents to the emergency department on May 19, complaining of chest pain, shortness of breath, fever, soreness, and cough. The patient apparently states that he was tested positive for coronavirus on May 13. He was actually sick one or 2 days prior to that. The patient came to the emergency room because his symptoms continued to get worse, and were not getting any better. The patient is on 10 L high flow nasal O2. Not receiving any IV fluids. The patient does apparently have a history of asthma, and a previous history of tobacco use. The patient was seen in the emergency department and admitted. We saw him in the emergency room, room 27. The patient denied any GI complaints. White count 10.1, hemoglobin 16.2, hematocrit 48.9, and platelet count 126,000. PT, INR, PTT, and d-dimer were all normal. Sodium 136, potassium, chloride, CO2, anion gap, BUN, and creatinine are all normal. Lactic acid was 2.3, repeat 1.4. AST 158, ALT 80. LDH 1295. C-reactive protein 17.1. COVID testing was positive. Chest x-ray, which we cannot see, consistent with diffuse bilateral infiltrates. The patient is unvaccinated. On 05/21/2021 patient seen in follow-up in medical surgical floor, since yesterday his oxygen demand has increased, he is currently at 60 L and FiO2 of 94%, in addition his been having to wear a nonrebreather mask on and off. On Airvo without the nonrebreather mask his pulse ox is ranging between 82-85%. Patient states he becomes especially short of breath with any exertion. But he is awake and alert, oriented 3, he has not been able to prone, he only tried it once, however he said his breathing got worse and he could not tolerate it, he was encouraged to at least reposition self from side to side. No fever, his vital signs have been stable other than worsening hypoxemia. Repeat chest x-ray has been obtained showing bilateral patchy infiltrates. Patient is on Decadron 6 mg twice daily, he was started on Baricitinib, is on prophylactic dose Lovenox 40 mg daily, and COVID vitamins. Today's lab work has been reviewed his white blood cell count is 13.8, hemoglobin is 14.9, d-dimer is pending, electrolytes were within normal limits, and his BUN is 24, creatinine is 0.91, his AST and ALT slightly improved and are down to 87 and 61 respectively, alkaline phosphatase is 77, his pro calcitonin level was increased at 1.83. Overall upon physical exam patient does not appear to be in any acute distress, he states he was able to taken at this morning, he felt better after that, denies any chest discomfort, he states he doesn't feel like his fatigued, does not appear to be using any accessory muscles of breathing. Objective - Vital Signs Vital signs: Vital Signs Temp 98.4 F 05/21/21 10:11 Pulse 102 H 05/21/21 10:11 Resp 17 05/21/21 10:11 BP 112/68 05/21/21 10:11 Pulse Ox 85 L 05/21/21 10:11 Intake & Output 05/20/21 05/21/21 05/21/21 18:59 06:59 18:59 Intake Total 360 Output Total 554 Balance -194 Intake: Oral 360 Output: Urine 554 Other: Voiding Method Toilet Toilet Urinal Urinal # Voids 1 - Exam GENERAL EXAM: Alert, very pleasant, 41-year-old male, on Airvo, at 60 L and FiO2 of 94%, with a pulse ox between 82-85%, and patient has been wearing the nonrebreather mask on and off along with the Airvo device comfortable in no apparent distress. HEAD: Normocephalic/atraumatic. EYES: Normal reaction of pupils, equal size. Conjunctiva pink, sclera white. NOSE: Clear with pink turbinates. THROAT: No erythema or exudates. NECK: No masses, no JVD, no thyroid enlargement, no adenopathy. CHEST: No chest wall deformity. Symmetrical expansion. LUNGS: Equal air entry with bibasilar crackles CVS: Regular rate and rhythm, normal S1 and S2, no gallops, no murmurs, no rubs ABDOMEN: Soft, nontender. No hepatosplenomegaly, normal bowel sounds, no guar ding or rigidity. EXTREMITIES: No clubbing, no edema, no cyanosis, 2+ pulses and upper and lower extremities. MUSCULOSKELETAL: Muscle strength and tone normal. SPINE: No scoliosis or deformity SKIN: No rashes CENTRAL NERVOUS SYSTEM: Alert and oriented -3. No focal deficits, tone is normal in all 4 extremities. PSYCHIATRIC: Alert and oriented -3. Appropriate affect. Intact judgment and insight. - Labs CBC & Chem 7: 05/21/21 05:52 05/21/21 05:52 Labs: Abnormal Lab Results - Last 24 Hours (Table) 05/19/21 05/21/21 05/21/21 Range/Units 20:54 05:52 05:52 WBC 13.8 H (3.8-10.6) k/uL Neutrophils # 12.2 H (1.3-7.7) k/uL Lymphocytes # 0.9 L (1.0-4.8) k/uL BUN 24 H (9-20) mg/dL Glucose 339 H (74-99) mg/dL AST 87 H (17-59) U/L ALT 61 H (4-49) U/L Total Protein 5.9 L (6.3-8.2) g/dL Albumin 3.1 L (3.5-5.0) g/dL Procalcitonin 1.83 H (0.02-0.09) ng/mL Microbiology - Last 24 Hours (Table) 05/19/21 21:14 Blood Culture - Preliminary Blood No Growth after 24 hours 05/19/21 21:00 Blood Culture - Preliminary Blood No Growth after 24 hours Assessment and Plan Plan: Assessment: #1. Acute and severe hypoxic respiratory failure related to acute COVID-19 pneumonia, patient presented with one-week history of symptoms including shortness of breath, cough, fever. Patient is non-vaccinated. Status post monoclonal antibiotic infusion. Patient was not a candidate for Remdesivir while in the hospital, was started on Baricitinib on 05/20/2021 #2. Former smoker #3. History of chronic bronchial asthma, unspecified #4. Elevated inflammatory markers related to COVID-19 infection #5. Mild lactic acidosis, improved with IV hydration #6. Elevated pro-calcitonin level, we'll discontinue Baricitinib Plan: Patient is severely hypoxic requiring both Airvo at maximal settings of 60 L and FiO2 of 94% in addition to 100% nonrebreather mask on and off However does not appear to be in any acute distress, we may place him on BiPAP support with pressures of 14 and 6 and FiO2 of 100% and PEEP if he becomes fatigued Today's chest x-ray has been reviewed showing bilateral patchy infiltrates Obtain Stat d-dimer, inflammatory markers If d-dimer comes back elevated we will proceed with CTA chest to rule out possibility of pulmonary embolism Continue with current dose Lovenox Continue close monitoring, if worsening dyspnea and hypoxia may transfer to the intensive care unit We'll stop the Baricitinib in view of elevated pro-calcitonin We will send a repeat pro-calcitonin tomorrow We'll continue to follow I performed a history & physical examination of the patient and discussed their management with my nurse practitioner, Cady Ospina. I reviewed the nurse practitioner's note and agree with the documented findings and plan of care. Lung sounds are positive for throughout the lung saleh. The findings and the impression was discussed with the patient. I attest to the documentation by the nurse practitioner. Time with Patient: Less than 30
[2021-05-21 15:32] LABS: C Reactive Protein 8.2 mg/dL (<1.0)
--- NOTE | 2021-05-21 19:21 | CT ---
EXAMINATION TYPE: CT chest angio for PE DATE OF EXAM: 05/21/2021 COMPARISON: None HISTORY: Severe hypoxia, Covid 19, resp. failure on high flow. CT DLP: 835.6 mGycm Automated exposure control for dose reduction was used. CONTRAST: Performed with IV Contrast, patient injected with 100 mL of Isovue 370. There are 3-D post processed images. There is extensive interstitial and airspace infiltrate throughout both lungs. There is no pleural ef fusion. Heart size is normal. There is no pericardial effusion. There is some fatty infiltration of t he liver. There are no hilar masses. There is no mediastinal adenopathy. Thoracic aorta is intact. There is no aneurysm or dissection. There is normal contrast opacification of the pulmonary arteries. There are no filling defects. IMPRESSION: No evidence of pulmonary embolism. Extensive bilateral pneumonia. Fatty infiltration of the liver.
--- NOTE | 2021-05-22 06:52 | PN ---
PROGRESS NOTE DATE OF SERVICE: 05/21/2021 REASON FOR FOLLOWUP: COVID-19 pneumonia. INTERVAL HISTORY: Patient is afebrile. The patient is still complaining of shortness of breath and is requiring high-flow oxygen. The patient denies having any worsening chest pain. He did have a cough but not bringing any sputum. No abdominal pain or diarrhea. PHYSICAL EXAMINATION: Blood pressure 129/77 with a pulse of 81, temperature 98.3. He is 89% on high- flow oxygen. General description is a middle-aged male lying in bed in no distress. Respiratory system: Unlabored breathing, decreased intensity of breath sounds. No wheeze or crackles. Heart S1, S2. Regular rate and rhythm. Abdomen: Soft, no tenderness. LABS: Hemoglobin is 14.9, white count 13.8. D-dimer is 0.27, creatinine 0.91. IMPRESSION/PLAN: Patient with acute respiratory failure secondary to Covid 19 pneumonia in this patient who did have a CT angiogram of the chest that has been negative for PE. Did show signs of bilateral pneumonia. The patient is covered with baricitinib, Lovenox, dexamethasone, zinc and ascorbic acid to continue and monitor clinical course closely. Continue supportive care. MMODL / IJN: [id number] /
[2021-05-22] MEDS: ASCORBIC ACID 500 MG TAB PO SCH (08:53)
[2021-05-22] MEDS: ENOXAPARIN 40 MG/0.4 ML SYRINGE SQ SCH (08:53)
[2021-05-22] MEDS: ZINC SULFATE 220 MG CAP PO SCH (08:53)
[2021-05-22] MEDS: DEXAMETHASONE SOD PHOSPHATE 10 MG/ML 1 ML VIAL IV SCH ×2 (08:53→20:51)
[2021-05-22] MEDS: CHOLECALCIFEROL 25 MCG (1000 IU) TABLET PO SCH (08:53)
[2021-05-22] MEDS: ALBUTEROL HFA INHALER INHALATION PRN ×3 (10:19→20:46)
[2021-05-22] MEDS: SYMBICORT 160-4.5 MCG INHALER INHALATION SCH ×2 (10:19→20:46)
[2021-05-22 11:00] LABS: African American GFR (CKD) >90 (>60 ml/min/1.73 sqM); Anion Gap 10 mmol/L; Blood Urea Nitrogen 32 mg/dL (9-20); Calcium 9.1 mg/dL (8.4-10.2); Carbon Dioxide 25 mmol/L (22-30); Chloride 103 mmol/L (98-107); Glucose 416 mg/dL (74-99); LDH 1046 U/L (313-618); Non-African American GFR(CKD) >90 (>60 ml/min/1.73 sqM); Potassium 4.9 mmol/L (3.5-5.1); Sodium 138 mmol/L (137-145)
[2021-05-22 11:09] LABS: Basophils % (A) 0 %; Eosinophils % (A) 0 %; HCT 45.3 % (39.0-53.0); HGB 14.6 gm/dL (13.0-17.5); Lymphocytes # (A) 0.7 k/uL (1.0-4.8); Lymphocytes % (A) 6 %; MCH 29.6 pg (25.0-35.0); MCHC 32.1 g/dL (31.0-37.0); MCV 92.2 fL (80.0-100.0); Mean Platelet Volume 8.5; Monocytes # (A) 0.7 k/uL (0-1.0); Monocytes % (A) 6 %; Neutrophils # (A) 9.4 k/uL (1.3-7.7); Neutrophils % (A) 86 %; Platelet Count 206 k/uL (150-450); RBC 4.91 m/uL (4.30-5.90); RDW 13.7 % (11.5-15.5)
[2021-05-22 11:40] LABS: C Reactive Protein 3.2 mg/dL (<1.0)
[2021-05-22 11:47] LABS: Glucose,Whole Blood 383 mg/dL (75-99)
[2021-05-22] MEDS: INSULIN ASPART (NovoLOG) 100 UNIT/ML VIAL SQ SCH ×3 (12:56→20:51)
--- NOTE | 2021-05-22 13:53 | P.PN ---
Subjective Progress Note Date: 05/22/21 Principal diagnosis: Dyspnea, cough, hypoxia, pneumonia 41-year-old male presents to the emergency department on May 19, complaining of chest pain, shortness of breath, fever, soreness, and cough. The patient apparently states that he was tested positive for coronavirus on May 13. He was actually sick one or 2 days prior to that. The patient came to the emergency room because his symptoms continued to get worse, and were not getting any better. The patient is on 10 L high flow nasal O2. Not receiving any IV fluids. The patient does apparently have a history of asthma, and a previous history of tobacco use. The patient was seen in the emergency department and admitted. We saw him in the emergency room, room 27. The patient denied any GI complaints. White count 10.1, hemoglobin 16.2, hematocrit 48.9, and platelet count 126,000. PT, INR, PTT, and d-dimer were all normal. Sodium 136, potassium, chloride, CO2, anion gap, BUN, and creatinine are all normal. Lactic acid was 2.3, repeat 1.4. AST 158, ALT 80. LDH 1295. C-reactive protein 17.1. COVID testing was positive. Chest x-ray, which we cannot see, consistent with diffuse bilateral infiltrates. The patient is unvaccinated. On 05/21/2021 patient seen in follow-up in medical surgical floor, since yesterday his oxygen demand has increased, he is currently at 60 L and FiO2 of 94%, in addition his been having to wear a nonrebreather mask on and off. On Airvo without the nonrebreather mask his pulse ox is ranging between 82-85%. Patient states he becomes especially short of breath with any exertion. But he is awake and alert, oriented 3, he has not been able to prone, he only tried it once, however he said his breathing got worse and he could not tolerate it, he was encouraged to at least reposition self from side to side. No fever, his vital signs have been stable other than worsening hypoxemia. Repeat chest x-ray has been obtained showing bilateral patchy infiltrates. Patient is on Decadron 6 mg twice daily, he was started on Baricitinib, is on prophylactic dose Lovenox 40 mg daily, and COVID vitamins. Today's lab work has been reviewed his white blood cell count is 13.8, hemoglobin is 14.9, d-dimer is pending, electrolytes were within normal limits, and his BUN is 24, creatinine is 0.91, his AST and ALT slightly improved and are down to 87 and 61 respectively, alkaline phosphatase is 77, his pro calcitonin level was increased at 1.83. Overall upon physical exam patient does not appear to be in any acute distress, he states he was able to taken at this morning, he felt better after that, denies any chest discomfort, he states he doesn't feel like his fatigued, does not appear to be using any accessory muscles of breathing. On 05/22/2021 patient seen in follow-up on medical surgical floor. He remains on Airvo at 60 L and FiO2 of 93% in addition to 100% nonrebreather mask, and his O2 saturations on both of those things are around 85-88%. Patient is not wearing nonrebreather mask continuously, he states is uncomfortable, he does not want to wear it. He is wearing only intermittently. CT chest was completed yesterday showing no evidence of pulmonary embolism, and extensive bilateral pneumonia. There is fatty infiltration of the liver. Yesterday's d-dimer was 0.7, its 0.40 on today's labs, LDH status 1046, relatively stable. He is on D ecadron 6 mg daily, he is on prophylactic Lovenox, had to discontinue his bare sitting up yesterday in view of his elevated pro calcitonin and possibility of developing bacterial superinfection. Blood cultures have been negative. Final cultures are pending. he has been afebrile, occasional cough, not bringing up any phlegm. Does not appear to be in any acute distress, although his pulse ox is around 83% on Airvo, patient states he does not want to be intubated and placed on mechanical ventilator, he wants to try to ride it out, patient states there is no way he is going on the ventilator so the hospital can make more money off him. There was a long discussion at the bedside explaining to the patient the importance of maintaining adequate oxygenation to prevent organ damage and failure. However the patient stated he would rather than go on the ventilator Objective - Vital Signs Vital signs: Vital Signs Temp 98.5 F 05/22/21 10:00 Pulse 79 05/22/21 10:00 Resp 19 05/22/21 10:00 BP 126/73 05/22/21 10:00 Pulse Ox 88 L 05/22/21 10:19 Intake & Output 05/21/21 05/22/21 05/22/21 18:59 06:59 18:59 Intake Total 1000 Output Total 2200 Balance -2200 1000 Intake: Oral 1000 Output: Urine 2200 Other: Voiding Method Toilet Urinal # Voids 2 3 - Exam GENERAL EXAM: Alert, argumentative 41-year-old male, on Airvo, at 60 L and FiO2 of 94%, with a pulse ox between 82-85%, and patient has been wearing the nonrebreather mask on and off along with the Airvo device comfortable in no apparent distress. HEAD: Normocephalic/atraumatic. EYES: Normal reaction of pupils, equal size. Conjunctiva pink, sclera white. NOSE: Clear with pink turbinates. THROAT: No erythema or exudates. NECK: No masses, no JVD, no thyroid enlargement, no adenopathy. CHEST: No chest wall deformity. Symmetrical expansion. LUNGS: Equal air entry with bibasilar crackles CVS: Regular rate and rhythm, normal S1 and S2, no gallops, no murmurs, no rubs ABDOMEN: Soft, nontender. No hepatosplenomegaly, normal bowel sounds, no guardi ng or rigidity. EXTREMITIES: No clubbing, no edema, no cyanosis, 2+ pulses and upper and lower extremities. MUSCULOSKELETAL: Muscle strength and tone normal. SPINE: No scoliosis or deformity SKIN: No rashes CENTRAL NERVOUS SYSTEM: Alert and oriented -3. No focal deficits, tone is normal in all 4 extremities. PSYCHIATRIC: Alert and oriented -3. Appropriate affect. Intact judgment and insight. - Labs CBC & Chem 7: 05/22/21 09:53 05/22/21 09:53 Labs: Abnormal Lab Results - Last 24 Hours (Table) 05/19/21 05/21/21 05/22/21 Range/Units 20:54 05:52 09:53 WBC 11.0 H (3.8-10.6) k/uL Neutrophils # 9.4 H (1.3-7.7) k/uL Lymphocytes # 0.7 L (1.0-4.8) k/uL BUN (9-20) mg/dL Glucose (74-99) mg/dL POC Glucose (mg/dL) (75-99) mg/dL Ferritin 2633.0 H (22.0-322.0) ng/mL Lactate Dehydrogenase 1006 H (313-618) U/L C-Reactive Protein 8.2 H (<1.0) mg/dL 05/22/21 05/22/21 Range/Units 09:53 11:46 WBC (3.8-10.6) k/uL Neutrophils # (1.3-7.7) k/uL Lymphocytes # (1.0-4.8) k/uL BUN 32 H (9-20) mg/dL Glucose 416 H (74-99) mg/dL POC Glucose (mg/dL) 383 H (75-99) mg/dL Ferritin (22.0-322.0) ng/mL Lactate Dehydrogenase 1046 H (313-618) U/L C-Reactive Protein 3.2 H (<1.0) mg/dL Microbiology - Last 24 Hours (Table) 05/19/21 21:14 Blood Culture - Preliminary Blood No Growth after 48 hours 05/19/21 21:00 Blood Culture - Preliminary Blood No Growth after 48 hours Assessment and Plan Plan: Assessment: #1. Acute and severe hypoxic respiratory failure related to acute COVID-19 pneumonia, patient presented with one-week history of symptoms including shortness of breath, cough, fever. Patient is non-vaccinated. Status post monoclonal antibiotic infusion. Patient was not a candidate for Remdesivir while in the hospital, was started on Baricitinib on 05/20/2021. Baricitinib was discontinued yesterday on 05/21/2021 in view of elevated pro-calcitonin level suggesting presence of a bacterial infection and possibility of developing an overwhelming superinfection #2. Former smoker #3. History of chronic bronchial asthma, unspecified #4. Elevated inflammatory markers related to COVID-19 infection #5. Mild lactic acidosis, improved with IV hydration #6. Elevated pro-calcitonin level, we'll discontinue Baricitinib Plan: Continue current medical treatment Patient remains on Airvo a 60 L and FiO2 of 93% in addition to nonrebreather mask, he remains hypoxic with pulse ox of 83-88% He thinks he does not want to go on life-support even if that means he would Seems to have a lot of misconceptions about COVID, he thinks the hospital is trying to make money off him going on vent There was a discussion at the bedside explained to the patient that he may require ventilator support until his lungs recover and able to adequately oxygenate on their own Patient is adamant about not intubation He thinks he is going to be only a week in the hospital Overall prognosis is quite guarded, We'll continue current medical treatment I performed a history & physical examination of the patient and discussed their management with my nurse practitioner, Cady Ospina. I reviewed the nurse practitioner's note and agree with the documented findings and plan of care. Lung sounds are positive for throughout the lung saleh. The findings and the impression was discussed with the patient. I attest to the documentation by the nurse practitioner. Time with Patient: Less than 30
[2021-05-22 17:09] LABS: Glucose,Whole Blood 375 mg/dL (75-99)
[2021-05-22 20:35] LABS: Glucose,Whole Blood 385 mg/dL (75-99)
[2021-05-23 06:59] LABS: Glucose,Whole Blood 325 mg/dL (75-99)
[2021-05-23] MEDS: ASCORBIC ACID 500 MG TAB PO SCH (08:22)
[2021-05-23] MEDS: DEXAMETHASONE SOD PHOSPHATE 10 MG/ML 1 ML VIAL IV SCH ×2 (08:22→21:11)
[2021-05-23] MEDS: CHOLECALCIFEROL 25 MCG (1000 IU) TABLET PO SCH (08:22)
[2021-05-23] MEDS: INSULIN ASPART (NovoLOG) 100 UNIT/ML VIAL SQ SCH ×4 (08:22→21:11)
[2021-05-23] MEDS: ZINC SULFATE 220 MG CAP PO SCH (08:22)
[2021-05-23] MEDS: ENOXAPARIN 40 MG/0.4 ML SYRINGE SQ SCH (08:23)
[2021-05-23] MEDS: ALBUTEROL HFA INHALER INHALATION PRN ×3 (09:23→16:14)
[2021-05-23] MEDS: SYMBICORT 160-4.5 MCG INHALER INHALATION SCH ×2 (09:23→23:55)
--- NOTE | 2021-05-23 11:21 | CDI ---
Documentation Clarification Form Date: 05/23/2021 10:50 AM CDS: Kristy Noel RN, CCDS Admit Date: 05/19/2021 Patient Name: Akhil Foster ATTENTION: The Clinical Documentation Specialists (CDI) and [facility] Coding Staff appreciate your assistance in clarifying documentation. Please respond to the clarification below the line at the bottom and electronically sign. The CDI & [facility] Coding staff will review the response and follow-up if needed. Please note: Queries are made part of the Legal Health Record. If you have any questions, please contact the author of this message via ITS. Dr. Luu, The patient presented with the following clinical indicators. Additional clarification regarding the etiology/cause of the clinical indicators is requested. History/Risk Factors: 41-year-old male presents to the ED with worsening shortness of breath cough, fever, chills and generalized weakness. Medical History: Asthma Clinical Indicators: WBC 05/19: 10.1 Lactic acid 05/19: 2.3 Blood cultures 05/19: No growth after 72 hours Vitals signs: B/P 133/83, HR 129, Temp 104.1F Oral, RR 36, SpO2 85% ra. Treatment: ID Consult: 05/20 Patient presented to hospital with acute respiratory failure from COVID 19 pneumonia with extensive pneumonia on chest xray, requiring high flow oxygen. Failed to respond to the monoclonal antibody therapy for concern of possible cytokine storm. Medications: 05/19 - current Tylenol 1,000mg PO Q6H PRN, 05/19 Motrin 800mg PO Once x 1, 05/19 Decadron 10mg IV x1, 05/20 current Decadron 6mg IV BID, 05/20 d/c 05/21 Baricinib 4mg PO Daily, 05/20 to current Zinc 220mg PO Daily. IV Bolus: 05/19 0.9ns 500cc bolus x1, In your professional opinion, please clarify if these findings signify one of the following conditions: [ ] Sepsis POA [ ] Sepsis ruled out [ ] SIRS, without underlying infectious process [ ] Other, please specify [ ] Unable to determine SIRS Criteria: 2 or more of the following may indicate SIRS -Temperature < 96.8F (36C) or > 101.0F (38.3C) -Heart Rate > 90 bpm -Respiratory Rate > 20 breaths/min or PaCO2 < 32 mmHg -White Blood Cell Count > 12,000 or < 4,000 cells/mm3 or > 10% bands (Template Last Reviewed: September 2020) Unable to determine MTDD
[2021-05-23 11:44] LABS: Glucose,Whole Blood 345 mg/dL (75-99)
--- NOTE | 2021-05-23 14:33 | P.PN ---
Subjective Progress Note Date: 05/23/21 Principal diagnosis: Coronavirus pneumonia. 41-year-old male presents to the emergency department on May 19, complaining of chest pain, shortness of breath, fever, soreness, and cough. The patient apparently states that he was tested positive for coronavirus on May 13. He was actually sick one or 2 days prior to that. The patient came to the emergency room because his symptoms continued to get worse, and were not getting any better. The patient is on 10 L high flow nasal O2. Not receiving any IV fluids. The patient does apparently have a history of asthma, and a previous history of tobacco use. The patient was seen in the emergency department and admitted. We saw him in the emergency room, room 27. The patient denied any GI complaints. White count 10.1, hemoglobin 16.2, hematocrit 48.9, and platelet count 126,000. PT, INR, PTT, and d-dimer were all normal. Sodium 136, potassium, chloride, CO2, anion gap, BUN, and creatinine are all normal. Lactic acid was 2.3, repeat 1.4. AST 158, ALT 80. LDH 1295. C-reactive protein 17.1. COVID testing was positive. Chest x-ray, which we cannot see, consistent with diffuse bilateral infiltrates. The patient is unvaccinated. On 05/21/2021 patient seen in follow-up in medical surgical floor, since his oxygen demand has increased, he is currently at 60 L and FiO2 of 94%, in addition his been having to wear a nonrebreather mask on and off. On Airvo without the nonrebreather mask his pulse ox is ranging between 82-85%. Patient states he becomes especially short of breath with any exertion. But he is awake and alert, oriented 3, he has not been able to prone, he only tried it once, however he said his breathing got worse and he could not tolerate it, he was encouraged to at least reposition self from side to side. No fever, his vital signs have been stable other than worsening hypoxemia. Repeat chest x-ray has been obtained showing bilateral patchy infiltrates. Patient is on Decadron 6 mg twice daily, he was started on Baricitinib, is on prophylactic dose Lovenox 40 mg daily, and COVID vitamins. Today's lab work has been reviewed his white blood cell count is 13.8, hemoglobin is 14.9, d-dimer is pending, electrolytes were within normal limits, and his BUN is 24, creatinine is 0.91, his AST and ALT slightly improved and are down to 87 and 61 respectively, alkaline p hosphatase is 77, his pro calcitonin level was increased at 1.83. Overall upon physical exam patient does not appear to be in any acute distress, he states he was able to taken at this morning, he felt better after that, denies any chest discomfort, he states he doesn't feel like his fatigued, does not appear to be using any accessory muscles of breathing. On 05/22/2021 patient seen in follow-up on medical surgical floor. He remains on Airvo at 60 L and FiO2 of 93% in addition to 100% nonrebreather mask, and his O2 saturations on both of those things are around 85-88%. Patient is not weari ng nonrebreather mask continuously, he states is uncomfortable, he does not want to wear it. He is wearing only intermittently. CT chest was completed yesterday showing no evidence of pulmonary embolism, and extensive bilateral pneumonia. There is fatty infiltration of the liver. Yesterday's d-dimer was 0.7, its 0.40 on today's labs, LDH status 1046, relatively stable. He is on Decadron 6 mg daily, he is on prophylactic Lovenox, had to discontinue his bare sitting up yesterday in view of his elevated pro calcitonin and possibility of developing bacterial superinfection. Blood cultures have been negative. Final cultures are pending. he has been afebrile, occasional cough, not bringing up any phlegm. Does not appear to be in any acute distress, although his pulse ox is around 83% on Airvo, patient states he does not want to be intubated and placed on mechanical ventilator, he wants to try to ride it out, patient states there is no way he is going on the ventilator so the hospital can make more money off him. There was a long discussion at the bedside explaining to the patient the importance of maintaining adequate oxygenation to prevent organ damage and failure. However the patient stated he would rather than go on the ventilator Progress note dated 05/23/2021. The patient is again seen today in room 484. He is actually laying on his back. He is getting nonrebreather on as well as AIRVO. Clinically, he appears to be doing better and he states that he does feel better. He knows to rotate in bed quite a bit, right side down, left side down, supine, and prone. Today, we put him on Zosyn as we are concerned about an elevated pro calcitonin level. Computed tomography scan of the chest did not reveal pulmonary embolism. He states that his breathing is much improved. He denies other complaints. No new labs today other than a glucose of 345. Objective - Vital Signs Vital signs: Vital Signs Temp 98.4 F 05/23/21 09:33 Pulse 75 05/23/21 09:33 Resp 18 05/23/21 09:33 BP 143/69 05/23/21 09:33 Pulse Ox 88 L 05/23/21 09:33 Intake & Output 05/22/21 05/23/21 05/23/21 18:59 06:59 18:59 Intake Total 120 240 Output Total 700 400 Balance -700 -280 240 Intake: Oral 120 240 Output: Urine 700 400 Other: Voiding Method Urinal Bedside Commode Bedside Commode Urinal Urinal # Voids 1 - Exam No acute distress, oriented 3. No conversational dyspnea or use of accessory muscles. The patient has a nonrebreather mask on as well as AIRVO. HEENT examination is grossly unremarkable. Neck supple. Full range of motion. No adenopathy thyromegaly or neck vein distention. Cardiovascular examination reveals regular rhythm rate. S1-S2 normal. No S3 or S4. No discernible murmur noted. Heart rate 75 bpm. Heart sounds are distant. Lungs reveal bibasilar crackles. No rhonchi or wheezes. Breath sounds equal. Abdomen soft bowel sounds are heard. No masses or tenderness. Extremities are intact. No cyanosis clubbing or edema. Skin is without rash or lesion. Neurologic examination is brief but nonfocal. - Labs CBC & Chem 7: 05/22/21 09:53 05/22/21 09:53 Labs: Abnormal Lab Results - Last 24 Hours (Table) 05/22/21 05/22/21 05/22/21 Range/Units 09:53 17:03 20:33 POC Glucose (mg/dL) 375 H 385 H (75-99) mg/dL Procalcitonin 1.59 H (0.02-0.09) ng/mL 05/23/21 05/23/21 Range/Units 06:57 11:42 POC Glucose (mg/dL) 325 H 345 H (75-99) mg/dL Procalcitonin (0.02-0.09) ng/mL Microbiology - Last 24 Hours (Table) 05/19/21 21:14 Blood Culture - Preliminary Blood No Growth after 72 hours 05/19/21 21:00 Blood Culture - Preliminary Blood No Growth after 72 hours Assessment and Plan Assessment: Acute hypoxemic respiratory failure secondary to coronavirus associated pneumonia. History of chronic bronchial asthma. Previous history of tobacco use. Mild lactic acidosis. Elevated inflammatory marker secondary to coronavirus infection. Plan: Plan dated 05/20/2021. The patient will be treated in standard fashion, and will receive vitamin C, vitamin D3, and zinc. He will also receive Decadron, and Lovenox. Also, because of his high oxygen requirements, the patient will get a monoclonal antibody against interleukin-6 called Baricitinib. We will also add an albuterol inhaler, as well as Symbicort 160/4.5, 2 puffs twice a day. Additional recommendations and suggestions are forthcoming. Hopefully, the pa josé antonio will turn around. Additional recommendations and suggestions are forthcoming. Prognosis is guarded. Plan dated 05/23/2021. The patient is doing well. The patient was given Zosyn empirically. He continues on usual treatment including vitamin C, vitamin D3, zinc, Decadron and Lovenox. We will continue to follow the patient make recommendations were appropriate. The patient's also getting a Symbicort inhaler, and albuterol inhaler. Clinically, he feels like he is improved. No additional recommendations are made. Prognosis is guarded. Time with Patient: Less than 30
[2021-05-23] MEDS: PIPERACILLIN-TAZOBACTAM 3.375 GM in SODIUM CHLORIDE 0.9% 100 ML IVPB SCH ×2 (16:17→23:49)
[2021-05-23 16:46] LABS: Glucose,Whole Blood 408 mg/dL (75-99)
--- NOTE | 2021-05-23 18:32 | PN ---
PROGRESS NOTE DATE OF SERVICE: 05/23/2021 REASON FOR FOLLOWUP: COVID-19 pneumonia. INTERVAL HISTORY: Patient is afebrile. The patient is feeling slightly better today, breathing more easily, more comfortably. Patient denies any chest pain. Occasional cough. No vomiting. No abdominal pain. No diarrhea. PHYSICAL EXAMINATION: Blood pressure 120/58 with a pulse of 82, temperature 96.8. He is 89% on 15 L high- flow oxygen. General description is a middle-aged male up in the bed in no distress. Respiratory system: Unlabored breathing, decreased intensity of breath sounds. No wheeze. Heart S1, S2. Regular rate and rhythm. Abdomen soft, no tenderness. LABS: No new labs have been obtained today. DIAGNOSTIC IMPRESSION/PLAN: Patient with acute respiratory failure, acute COVID-19 pneumonia in this patient high-flow oxygen. Patient slowly shown some clinical improvement. He is currently covered with Dexamethasone, Lovenox, zinc and ascorbic acid to continue. Zosyn as he did have mildly elevated procalcitonin. Will try to obtain a sputum and continue supportive care. MMODL / IJN: [id number] /
[2021-05-23 20:41] LABS: Glucose,Whole Blood 478 mg/dL (75-99)
[2021-05-23] MEDS ORDERED: INSULIN ASPART (NovoLOG) 100 UNIT/ML VIAL SQ ONE (21:39)
[2021-05-23 22:11] LABS: Appearance,Urine Clear (Clear); Bilirubin,Urine Negative (Negative); Blood,Urine Negative (Negative); Color,Urine Light Yellow; Glucose,Urine (UA) 4+ (Negative); Ketones,Urine Negative (Negative); Leukocyte Esterase,Urine Negative (Negative); Nitrite,Urine Negative (Negative); PH, Urine 6.5 (5.0-8.0); Protein,Urine Negative (Negative); Specific Gravity,Urine 1.033 (1.001-1.035); Urobilinogen,Urine <2.0 mg/dL (<2.0)
[2021-05-24] MEDS: ALBUTEROL HFA INHALER INHALATION PRN ×5 (00:15→19:29)
--- NOTE | 2021-05-24 06:57 | XR ---
EXAMINATION TYPE: XR chest 1V portable DATE OF EXAM: 05/24/2021 COMPARISON: 05/21/2021 HISTORY: Covid TECHNIQUE: Single frontal view of the chest is obtained. FINDINGS: There is mild scattered ill-defined partial airspace opacity which has improved slightly i n the interval. In particular the opacity in the left upper lobe has resolved in the interval. The heart size is normal. The pulmonary vasculature is not congested. There is no pleural effusion or pneumothorax. The osseous structures are intact. IMPRESSION: Mild scattered partially consolidative airspace opacity with mild interval improvement s katie the prior study.
[2021-05-24 06:58] LABS: Glucose,Whole Blood 296 mg/dL (75-99)
[2021-05-24] MEDS: ENOXAPARIN 40 MG/0.4 ML SYRINGE SQ SCH (08:24)
[2021-05-24] MEDS: DEXAMETHASONE SOD PHOSPHATE 10 MG/ML 1 ML VIAL IV SCH ×2 (08:25→21:28)
[2021-05-24] MEDS: CHOLECALCIFEROL 25 MCG (1000 IU) TABLET PO SCH (08:25)
[2021-05-24] MEDS: ASCORBIC ACID 500 MG TAB PO SCH (08:25)
[2021-05-24] MEDS: ZINC SULFATE 220 MG CAP PO SCH (08:25)
[2021-05-24] MEDS: INSULIN ASPART (NovoLOG) 100 UNIT/ML VIAL SQ SCH ×4 (08:25→21:27)
[2021-05-24] MEDS: PIPERACILLIN-TAZOBACTAM 3.375 GM in SODIUM CHLORIDE 0.9% 100 ML IVPB SCH ×2 (08:26→15:53)
[2021-05-24] MEDS: SYMBICORT 160-4.5 MCG INHALER INHALATION SCH ×2 (09:35→19:29)
[2021-05-24 11:38] LABS: Glucose,Whole Blood 425 mg/dL (75-99)
[2021-05-24 13:08] LABS: Basophils # (A) 0.09 X 10*3/uL (0.00-0.10); Basophils % (A) 0.6 %; Eosinophils # (A) 0 X 10*3/uL (0.04-0.35); Eosinophils % (A) 0 %; HCT 52.7 % (39.6-50.0); HGB 16.4 g/dL (13.0-17.0); Lymphocytes # (A) 1.09 X 10*3/uL (0.90-5.00); Lymphocytes % (A) 7.8 %; MCHC 31.1 g/dL (32.0-37.0); MCV 89.9 fL (80.0-97.0); Mean Platelet Volume 10.7 fL (9.5-12.2); Monocytes # (A) 0.96 X 10*3/uL (0.20-1.00); Monocytes % (A) 6.9 %; Neutrophils # (A) 11.24 X 10*3/uL (1.80-7.70); Neutrophils % (A) 80.3 %; Platelet Count 333 X 10*3/uL (140-440); RBC 5.86 X 10*6/uL (4.40-5.60); RDW 13.2 % (11.5-14.5); WBC 13.99 X 10*3/uL (4.50-10.00)
[2021-05-24 13:13] LABS: African American GFR (CKD) 112.3 (60.0-200.0); Albumin 3.8 g/dL (3.8-4.9); Albumin/Globulin Ratio 1.38 (1.60-3.17); Anion Gap 15.1 mmol/L (4.00-12.00); Blood Urea Nitrogen 32.5 mg/dL (9.0-27.0); Calcium 9.3 mg/dL (8.7-10.3); Carbon Dioxide 24.2 mmol/L (21.6-31.8); Globulin 2.7 g/dL (1.6-3.3); Non-African American GFR(CKD) 96.9 (60.0-200.0); Potassium 4.7 mmol/L (3.5-5.5); Total Bilirubin 0.7 mg/dL (0.30-1.20); Total Protein 6.5 g/dL (6.2-8.2)
--- NOTE | 2021-05-24 14:34 | P.PN ---
Subjective Progress Note Date: 05/24/21 Principal diagnosis: Coronavirus pneumonia. 41-year-old male presents to the emergency department on May 19, complaining of chest pain, shortness of breath, fever, soreness, and cough. The patient apparently states that he was tested positive for coronavirus on May 13. He was actually sick one or 2 days prior to that. The patient came to the emergency room because his symptoms continued to get worse, and were not getting any better. The patient is on 10 L high flow nasal O2. Not receiving any IV fluids. The patient does apparently have a history of asthma, and a previous history of tobacco use. The patient was seen in the emergency department and admitted. We saw him in the emergency room, room 27. The patient denied any GI complaints. White count 10.1, hemoglobin 16.2, hematocrit 48.9, and platelet count 126,000. PT, INR, PTT, and d-dimer were all normal. Sodium 136, potassium, chloride, CO2, anion gap, BUN, and creatinine are all normal. Lactic acid was 2.3, repeat 1.4. AST 158, ALT 80. LDH 1295. C-reactive protein 17.1. COVID testing was positive. Chest x-ray, which we cannot see, consistent with diffuse bilateral infiltrates. The patient is unvaccinated. On 05/21/2021 patient seen in follow-up in medical surgical floor, since his oxygen demand has increased, he is currently at 60 L and FiO2 of 94%, in addition his been having to wear a nonrebreather mask on and off. On Airvo without the nonrebreather mask his pulse ox is ranging between 82-85%. Patient states he becomes especially short of breath with any exertion. But he is awake and alert, oriented 3, he has not been able to prone, he only tried it once, however he said his breathing got worse and he could not tolerate it, he was encouraged to at least reposition self from side to side. No fever, his vital signs have been stable other than worsening hypoxemia. Repeat chest x-ray has been obtained showing bilateral patchy infiltrates. Patient is on Decadron 6 mg twice daily, he was started on Baricitinib, is on prophylactic dose Lovenox 40 mg daily, and COVID vitamins. Today's lab work has been reviewed his white blood cell count is 13.8, hemoglobin is 14.9, d-dimer is pending, electrolytes were within normal limits, and his BUN is 24, creatinine is 0.91, his AST and ALT slightly improved and are down to 87 and 61 respectively, alkaline p hosphatase is 77, his pro calcitonin level was increased at 1.83. Overall upon physical exam patient does not appear to be in any acute distress, he states he was able to taken at this morning, he felt better after that, denies any chest discomfort, he states he doesn't feel like his fatigued, does not appear to be using any accessory muscles of breathing. On 05/22/2021 patient seen in follow-up on medical surgical floor. He remains on Airvo at 60 L and FiO2 of 93% in addition to 100% nonrebreather mask, and his O2 saturations on both of those things are around 85-88%. Patient is not weari ng nonrebreather mask continuously, he states is uncomfortable, he does not want to wear it. He is wearing only intermittently. CT chest was completed yesterday showing no evidence of pulmonary embolism, and extensive bilateral pneumonia. There is fatty infiltration of the liver. Yesterday's d-dimer was 0.7, its 0.40 on today's labs, LDH status 1046, relatively stable. He is on Decadron 6 mg daily, he is on prophylactic Lovenox, had to discontinue his bare sitting up yesterday in view of his elevated pro calcitonin and possibility of developing bacterial superinfection. Blood cultures have been negative. Final cultures are pending. he has been afebrile, occasional cough, not bringing up any phlegm. Does not appear to be in any acute distress, although his pulse ox is around 83% on Airvo, patient states he does not want to be intubated and placed on mechanical ventilator, he wants to try to ride it out, patient states there is no way he is going on the ventilator so the hospital can make more money off him. There was a long discussion at the bedside explaining to the patient the importance of maintaining adequate oxygenation to prevent organ damage and failure. However the patient stated he would rather than go on the ventilator Progress note dated 05/23/2021. The patient is again seen today in room 484. He is actually laying on his back. He is getting nonrebreather on as well as AIRVO. Clinically, he appears to be doing better and he states that he does feel better. He knows to rotate in bed quite a bit, right side down, left side down, supine, and prone. Today, we put him on Zosyn as we are concerned about an elevated pro calcitonin level. Computed tomography scan of the chest did not reveal pulmonary embolism. He states that his breathing is much improved. He denies other complaints. No new labs today other than a glucose of 345. Progress note dated 05/24/2021. The patient is again seen in room 484. Currently, he is on AIRVO, at 60 L/m with an FiO2 of 92%. He seemed relatively comfortable, not particularly short of breath. Saturations are 93%. Respiratory rate 18, pressure 163/67 with a mean of 99. The patient is afebrile. White count 13.99, hemoglobin 16.4, hematocrit 52.7, and platelet count 333,000. Sodium, potassium, chloride, and CO2 are all normal. Anion gap is elevated at 15.10 with a BUN of 32.5 and a creatinine of 1. Chest x-ray shows scattered consolidated bilateral airspace disease, with mild interval improvement. Objective - Vital Signs Vital signs: Vital Signs Temp 97.5 F L 05/24/21 09:44 Pulse 87 05/24/21 09:44 Resp 18 05/24/21 09:44 BP 163/67 05/24/21 09:44 Pulse Ox 93 L 05/24/21 09:44 Intake & Output 05/23/21 05/24/21 05/24/21 18:59 06:59 18:59 Intake Total 240 720 Output Total 500 Balance -260 720 Intake: Oral 240 720 Output: Urine 500 Other: Voiding Method Bedside Commode Bedside Commode Bedside Commode Urinal Urinal Urinal # Voids 3 - Exam No acute distress, oriented 3. No conversational dyspnea or use of accessory muscles. The patient has only AIRVO on at the current time. HEENT examination is grossly unremarkable. Neck supple. Full range of motion. No adenopathy thyromegaly or neck vein distention. Cardiovascular examination reveals regular rhythm rate. S1-S2 normal. No S3 or S4. No discernible murmur noted. Heart rate 84 bpm. Heart sounds are distant. Lungs reveal bibasilar crackles. No rhonchi or wheezes. Breath sounds equal. Abdomen soft bowel sounds are heard. No masses or tenderness. Extremities are intact. No cyanosis clubbing or edema. Skin is without rash or lesion. Neurologic examination is brief but nonfocal. - Labs CBC & Chem 7: 05/24/21 06:37 05/24/21 06:37 Labs: Abnormal Lab Results - Last 24 Hours (Table) 05/23/21 05/23/21 05/23/21 Range/Units 16:44 20:30 20:39 WBC (4.50-10.00) X 10*3/uL RBC (4.40-5.60) X 10*6/uL Hct (39.6-50.0) % MCHC (32.0-37.0) g/dL Absolute Nucleated RBC (0.00-0.00) X 10*3/uL Immature Gran # (0.00-0.04) X 10*3/uL Neutrophils # (1.80-7.70) X 10*3/uL Eosinophils # (0.04-0.35) X 10*3/uL NRBC/100 WBC Diff (0.0-0.0) /100 WBCS Anion Gap (4.00-12.00) mmol/L BUN (9.0-27.0) mg/dL BUN/Creatinine Ratio (12.00-20.00) Ratio Glucose (70-110) mg/dL POC Glucose (mg/dL) 408 H 478 H (75-99) mg/dL AST (14-35) U/L ALT (10-49) U/L Albumin/Globulin Ratio (1.60-3.17) g/dL Urine Glucose (UA) 4+ H (Negative) 05/24/21 05/24/21 05/24/21 Range/Units 06:37 06:37 06:51 WBC 13.99 H (4.50-10.00) X 10*3/uL RBC 5.86 H (4.40-5.60) X 10*6/uL Hct 52.7 H (39.6-50.0) % MCHC 31.1 L (32.0-37.0) g/dL Absolute Nucleated RBC 0.02 H (0.00-0.00) X 10*3/uL Immature Gran # 0.61 H (0.00-0.04) X 10*3/uL Neutrophils # 11.24 H (1.80-7.70) X 10*3/uL Eosinophils # 0 L (0.04-0.35) X 10*3/uL NRBC/100 WBC Diff 0.1 H (0.0-0.0) /100 WBCS Anion Gap 15.10 H (4.00-12.00) mmol/L BUN 32.5 H (9.0-27.0) mg/dL BUN/Creatinine Ratio 34.00 H (12.00-20.00) Ratio Glucose 302 H (70-110) mg/dL POC Glucose (mg/dL) 296 H (75-99) mg/dL AST 99 H (14-35) U/L ALT 131 H (10-49) U/L Albumin/Globulin Ratio 1.38 L (1.60-3.17) g/dL Urine Glucose (UA) (Negative) 05/24/21 Range/Units 11:36 WBC (4.50-10.00) X 10*3/uL RBC (4.40-5.60) X 10*6/uL Hct (39.6-50.0) % MCHC (32.0-37.0) g/dL Absolute Nucleated RBC (0.00-0.00) X 10*3/uL Immature Gran # (0.00-0.04) X 10*3/uL Neutrophils # (1.80-7.70) X 10*3/uL Eosinophils # (0.04-0.35) X 10*3/uL NRBC/100 WBC Diff (0.0-0.0) /100 WBCS Anion Gap (4.00-12.00) mmol/L BUN (9.0-27.0) mg/dL BUN/Creatinine Ratio (12.00-20.00) Ratio Glucose (70-110) mg/dL POC Glucose (mg/dL) 425 H (75-99) mg/dL AST (14-35) U/L ALT (10-49) U/L Albumin/Globulin Ratio (1.60-3.17) g/dL Urine Glucose (UA) (Negative) Microbiology - Last 24 Hours (Table) 05/23/21 16:34 Gram Stain - Preliminary Sputum Sputum Culture - Preliminary 05/19/21 21:14 Blood Culture - Preliminary Blood No Growth after 96 hours 05/19/21 21:00 Blood Culture - Preliminary Blood No Growth after 96 hours Assessment and Plan Assessment: Acute hypoxemic respiratory failure secondary to coronavirus associated pneumonia. History of chronic bronchial asthma. Previous history of tobacco use. Mild lactic acidosis. Elevated inflammatory marker secondary to coronavirus infection. Plan: Plan dated 05/20/2021. The patient will be treated in standard fashion, and will receive vitamin C, vitamin D3, and zinc. He will also receive Decadron, and Lovenox. Also, because of his high oxygen requirements, the patient will get a monoclonal antibody against interleukin-6 called Baricitinib. We will also add an albuterol inhaler, as well as Symbicort 160/4.5, 2 puffs twice a day. Additional recommendations and suggestions are forthcoming. Hopefully, the patient will turn around. Additional recommendations and suggestions are forthcoming. Prognosis is guarded. Plan dated 05/23/2021. The patient is doing well. The patient was given Zosyn empirically. He continues on usual treatment including vitamin C, vitamin D3, zinc, Decadron and Lovenox. We will continue to follow the patient make recommendations were appropriate. The patient's also getting a Symbicort inhaler, and albuterol inhaler. Clinically, he feels like he is improved. No additional recommendations are made. Prognosis is guarded. Plan dated 05/24/2021. Currently, the patient appears to be relatively stable. He is currently on AIRVO. He is laying flat in bed, without any respiratory distress he knows to move around well in bed, right side down, left side down, supine, and even prone if possible. Labs and x-rays are reviewed. He remains on albuterol inhaler, vitamin C, Symbicort, vitamin D3, Decadron twice a day, and Lovenox. The patient is also on Zosyn, empirically, as well as zinc. Additional recommend ations and suggestions are forthcoming. We will continue to follow and make recommendations where appropriate. Time with Patient: Less than 30
[2021-05-24 16:58] LABS: Glucose,Whole Blood 454 mg/dL (75-99)
--- NOTE | 2021-05-24 18:08 | PN ---
PROGRESS NOTE DATE OF SERVICE: 05/24/2021 REASON FOR FOLLOWUP: COVID-19 pneumonia. INTERVAL HISTORY: The patient is afebrile. The patient is breathing slightly comfortably today. The patient is currently on AIRVO and FiO2 of %. The patient denies having any chest pain or worsening cough. No abdominal pain or diarrhea. PHYSICAL EXAMINATION: Blood pressure 168/62 with a pulse of 70, temperature 98.4. He is 93% on FiO2. General description is a middle-aged male up in the bed in no distress. RESPIRATORY SYSTEM: Unlabored breathing. Decreased intensity of breath sounds. No wheeze. HEART: S1, S2. Regular rate and rhythm. ABDOMEN: Soft. No tenderness. LABS: Hemoglobin is 16.4, white count 13.9, creatinine 1.0. DIAGNOSTIC IMPRESSION AND PLAN: Patient with acute COVID-19 pneumonia. Patient's condition remains critical. Currently on supportive treatment of dexamethasone, Lovenox, zinc, ascorbic acid. To continue while monitoring his clinical course closely. Continue with supportive care. MMODL / IJN: [id number] /
[2021-05-24 20:59] LABS: Glucose,Whole Blood 381 mg/dL (75-99)
[2021-05-24] MEDS: INSULIN DETEMIR (LEVEMIR) 100 UNIT/ML SYR SQ SCH (21:28)
[2021-05-25] MEDS: PIPERACILLIN-TAZOBACTAM 3.375 GM in SODIUM CHLORIDE 0.9% 100 ML IVPB SCH ×3 (01:59→15:38)
[2021-05-25 07:03] LABS: Glucose,Whole Blood 258 mg/dL (75-99)
[2021-05-25] MEDS: ALBUTEROL HFA INHALER INHALATION PRN ×4 (07:56→20:02)
[2021-05-25] MEDS: SYMBICORT 160-4.5 MCG INHALER INHALATION SCH ×2 (07:56→20:02)
[2021-05-25] MEDS: CHOLECALCIFEROL 25 MCG (1000 IU) TABLET PO SCH (08:08)
[2021-05-25] MEDS: INSULIN ASPART (NovoLOG) 100 UNIT/ML VIAL SQ SCH ×7 (08:08→21:59)
[2021-05-25] MEDS: ZINC SULFATE 220 MG CAP PO SCH (08:09)
[2021-05-25] MEDS: ASCORBIC ACID 500 MG TAB PO SCH (08:09)
[2021-05-25] MEDS: ENOXAPARIN 40 MG/0.4 ML SYRINGE SQ SCH (08:09)
[2021-05-25] MEDS: DEXAMETHASONE SOD PHOSPHATE 10 MG/ML 1 ML VIAL IV SCH ×2 (08:09→22:00)
[2021-05-25 11:55] LABS: Glucose,Whole Blood 305 mg/dL (75-99)
--- NOTE | 2021-05-25 14:20 | P.PN ---
Subjective Progress Note Date: 05/25/21 Principal diagnosis: Coronavirus pneumonia. 41-year-old male presents to the emergency department on May 19, complaining of chest pain, shortness of breath, fever, soreness, and cough. The patient apparently states that he was tested positive for coronavirus on May 13. He was actually sick one or 2 days prior to that. The patient came to the emergency room because his symptoms continued to get worse, and were not getting any better. The patient is on 10 L high flow nasal O2. Not receiving any IV fluids. The patient does apparently have a history of asthma, and a previous history of tobacco use. The patient was seen in the emergency department and admitted. We saw him in the emergency room, room 27. The patient denied any GI complaints. White count 10.1, hemoglobin 16.2, hematocrit 48.9, and platelet count 126,000. PT, INR, PTT, and d-dimer were all normal. Sodium 136, potassium, chloride, CO2, anion gap, BUN, and creatinine are all normal. Lactic acid was 2.3, repeat 1.4. AST 158, ALT 80. LDH 1295. C-reactive protein 17.1. COVID testing was positive. Chest x-ray, which we cannot see, consistent with diffuse bilateral infiltrates. The patient is unvaccinated. On 05/21/2021 patient seen in follow-up in medical surgical floor, since his oxygen demand has increased, he is currently at 60 L and FiO2 of 94%, in addition his been having to wear a nonrebreather mask on and off. On Airvo without the nonrebreather mask his pulse ox is ranging between 82-85%. Patient states he becomes especially short of breath with any exertion. But he is awake and alert, oriented 3, he has not been able to prone, he only tried it once, however he said his breathing got worse and he could not tolerate it, he was encouraged to at least reposition self from side to side. No fever, his vital signs have been stable other than worsening hypoxemia. Repeat chest x-ray has been obtained showing bilateral patchy infiltrates. Patient is on Decadron 6 mg twice daily, he was started on Baricitinib, is on prophylactic dose Lovenox 40 mg daily, and COVID vitamins. Today's lab work has been reviewed his white blood cell count is 13.8, hemoglobin is 14.9, d-dimer is pending, electrolytes were within normal limits, and his BUN is 24, creatinine is 0.91, his AST and ALT slightly improved and are down to 87 and 61 respectively, alkaline p hosphatase is 77, his pro calcitonin level was increased at 1.83. Overall upon physical exam patient does not appear to be in any acute distress, he states he was able to taken at this morning, he felt better after that, denies any chest discomfort, he states he doesn't feel like his fatigued, does not appear to be using any accessory muscles of breathing. On 05/22/2021 patient seen in follow-up on medical surgical floor. He remains on Airvo at 60 L and FiO2 of 93% in addition to 100% nonrebreather mask, and his O2 saturations on both of those things are around 85-88%. Patient is not weari ng nonrebreather mask continuously, he states is uncomfortable, he does not want to wear it. He is wearing only intermittently. CT chest was completed yesterday showing no evidence of pulmonary embolism, and extensive bilateral pneumonia. There is fatty infiltration of the liver. Yesterday's d-dimer was 0.7, its 0.40 on today's labs, LDH status 1046, relatively stable. He is on Decadron 6 mg daily, he is on prophylactic Lovenox, had to discontinue his bare sitting up yesterday in view of his elevated pro calcitonin and possibility of developing bacterial superinfection. Blood cultures have been negative. Final cultures are pending. he has been afebrile, occasional cough, not bringing up any phlegm. Does not appear to be in any acute distress, although his pulse ox is around 83% on Airvo, patient states he does not want to be intubated and placed on mechanical ventilator, he wants to try to ride it out, patient states there is no way he is going on the ventilator so the hospital can make more money off him. There was a long discussion at the bedside explaining to the patient the importance of maintaining adequate oxygenation to prevent organ damage and failure. However the patient stated he would rather than go on the ventilator Progress note dated 05/23/2021. The patient is again seen today in room 484. He is actually laying on his back. He is getting nonrebreather on as well as AIRVO. Clinically, he appears to be doing better and he states that he does feel better. He knows to rotate in bed quite a bit, right side down, left side down, supine, and prone. Today, we put him on Zosyn as we are concerned about an elevated pro calcitonin level. Computed tomography scan of the chest did not reveal pulmonary embolism. He states that his breathing is much improved. He denies other complaints. No new labs today other than a glucose of 345. Progress note dated 05/24/2021. The patient is again seen in room 484. Currently, he is on AIRVO, at 60 L/m with an FiO2 of 92%. He seemed relatively comfortable, not particularly short of breath. Saturations are 93%. Respiratory rate 18, pressure 163/67 with a mean of 99. The patient is afebrile. White count 13.99, hemoglobin 16.4, hematocrit 52.7, and platelet count 333,000. Sodium, potassium, chloride, and CO2 are all normal. Anion gap is elevated at 15.10 with a BUN of 32.5 and a creatinine of 1. Chest x-ray shows scattered consolidated bilateral airspace disease, with mild interval improvement. Progress note dated 05/25/2021. This is a 41-year-old male, again seen in room 484. Currently, the patient is lying flat in bed, with his AIRVO in place. AIRVO's at 60 L/m with an FiO2 of about 90-92%. He looks relatively comfortable. He denies any chest pain, chest discomfort, worsening of his breathing. He also denies any fever or chills. His vital signs are reasonably stable. He remains on insulin, Lovenox, Decadron, Symbicort, albuterol inhaler, vitamin C, vitamin D3, and zinc. The patient is also on Zosyn empirically. No new labs today. No new chest x-rays today to report. Objective - Vital Signs Vital signs: Vital Signs Temp 98.1 F 05/25/21 09:50 Pulse 73 05/25/21 09:50 Resp 17 05/25/21 09:50 BP 149/63 05/25/21 09:50 Pulse Ox 85 L 05/25/21 09:50 Intake & Output 05/24/21 05/25/21 05/25/21 18:59 06:59 18:59 Intake Total 2600 960 Balance 2600 960 Intake: Intake, IV Titration 200 Amount Piperacillin-Tazobactam 3 200 .375 gm In Sodium Chloride 0.9% 100 ml @ 25 mls/hr IVPB Q8HR [facility] Rx# :[id number] Oral 2400 960 Other: Voiding Method Bedside Commode Bedside Commode Bedside Commode Urinal Urinal Urinal # Voids 4 - Exam No acute distress, oriented 3. No conversational dyspnea or use of accessory muscles. The patient has only AIRVO on at the current time. HEENT examination is grossly unremarkable. Neck supple. Full range of motion. No adenopathy thyromegaly or neck vein distention. Cardiovascular examination reveals regular rhythm rate. S1-S2 normal. No S3 or S4. No discernible murmur noted. Heart rate 73 bpm. Heart sounds are distant. Lungs reveal bibasilar crackles. No rhonchi or wheezes. Breath sounds equal. Abdomen soft bowel sounds are heard. No masses or tenderness. Extremities are intact. No cyanosis clubbing or edema. Skin is without rash or lesion. Neurologic examination is brief but nonfocal. - Labs CBC & Chem 7: 05/24/21 06:37 05/24/21 06:37 Labs: Abnormal Lab Results - Last 24 Hours (Table) 05/24/21 05/24/21 05/25/21 Range/Units 16:54 20:53 05:28 POC Glucose (mg/dL) 454 H 381 H (75-99) mg/dL Hemoglobin A1c 8.1 H (4.0-6.0) % 05/25/21 05/25/21 Range/Units 06:54 11:44 POC Glucose (mg/dL) 258 H 305 H (75-99) mg/dL Hemoglobin A1c (4.0-6.0) % Microbiology - Last 24 Hours (Table) 05/23/21 16:34 Gram Stain - Final Sputum Sputum Culture - Final 05/19/21 21:14 Blood Culture - Preliminary Blood No Growth after 120 hours 05/19/21 21:00 Blood Culture - Preliminary Blood No Growth after 120 hours 05/23/21 12:51 Blood Culture - Preliminary Blood No Growth after 24 hours 05/23/21 12:58 Blood Culture - Preliminary Blood No Growth after 24 hours Assessment and Plan Assessment: Acute hypoxemic respiratory failure secondary to coronavirus associated pneumonia. History of chronic bronchial asthma. Previous history of tobacco use. Mild lactic acidosis. Elevated inflammatory marker secondary to coronavirus infection. Plan: Plan dated 05/20/2021. The patient will be treated in standard fashion, and will receive vitamin C, vitamin D3, and zinc. He will also receive Decadron, and Lovenox. Also, because of his high oxygen requirements, the patient will get a monoclonal antibody against interleukin-6 called Baricitinib. We will also add an albuterol inhaler, as well as Symbicort 160/4.5, 2 puffs twice a day. Additional recommendations and suggestions are forthcoming. Hopefully, the patient will turn around. Additional recommendations and suggestions are forthcoming. Prognosis is guarded. Plan dated 05/23/2021. The patient is doing well. The patient was given Zosyn empirically. He continues on usual treatment including vitamin C, vitamin D3, zinc, Decadron and Lovenox. We will continue to follow the patient make recommendations were appropriate. The patient's also getting a Symbicort inhaler, and albuterol inhaler. Clinically, he feels like he is improved. No additional recommenda tions are made. Prognosis is guarded. Plan dated 05/24/2021. Currently, the patient appears to be relatively stable. He is currently on AIRVO. He is laying flat in bed, without any respiratory distress he knows to move around well in bed, right side down, left side down, supine, and even prone if possible. Labs and x-rays are reviewed. He remains on albuterol inhaler, vitamin C, Symbicort, vitamin D3, Decadron twice a day, and Lovenox. The patient is also on Zosyn, empirically, as well as zinc. Additional recommendations and suggestions are forthcoming. We will continue to follow and make recommendations where appropriate. Plan dated 05/25/2021. Currently, the patient is stable on AIRVO, even though his oxygen requirements are quite high. He is laying flat in bed. Every now and again, he'll place a nonrebreather mask on over his AIRVO device. Clinically, labs and x-rays are reviewed. The patient remains on appropriate medications including empiric antibiotics. Microbiologic studies are all negative thus far. We will continue to follow make recommendations where appropriate. Prognosis is certainly guarded. Time with Patient: Less than 30
[2021-05-25 16:32] LABS: Glucose,Whole Blood 362 mg/dL (75-99)
--- NOTE | 2021-05-25 18:42 | P.PN ---
Subjective Progress Note Date: 05/23/21 41-year-old male with a known history of asthma and previous history of smoking presents to ER with complaints of worsening shortness of breath, cough and fever. Patient has been sick for the past 1 week. patient was febrile with T- max of 104.1 on admission and was tachycardic and tachypneic with pulse ox 85% on room air on admission. Patient was tested positive for COVID-19 infection in May 13, 2021. Patient was symptomatic for about 2 days prior to his test. Patient was taking [id number] medications and breathing status is not improving. Presented to ER due to worsening symptoms. On admission patient was hypoxic. Chest x-ray showed interval marked worsening appearance of the chest with bilateral multifocal areas of infiltrate suggestive of pneumonia. EKG showed sinus tachycardia. Objective - Vital Signs Vital signs: Vital Signs Temp 96.8 F L 05/23/21 14:03 Pulse 82 05/23/21 14:03 Resp 18 05/23/21 14:03 BP 120/58 05/23/21 14:03 Pulse Ox 89 L 05/23/21 14:03 Intake & Output 05/22/21 05/23/21 05/23/21 18:59 06:59 18:59 Intake Total 120 240 Output Total 700 400 Balance -700 -280 240 Intake: Oral 120 240 Output: Urine 700 400 Other: Voiding Method Urinal Bedside Commode Bedside Commode Urinal Urinal # Voids 1 - Exam PHYSICAL EXAMINATION: GENERAL: The patient is alert and oriented x3, not in any acute distress. Well developed, well nourished. HEENT: Pupils are round and equally reacting to light. EOMI. No scleral icterus. No conjunctival pallor. Normocephalic, atraumatic. No pharyngeal erythema. No thyromegaly. CARDIOVASCULAR: S1 and S2 present. No murmurs, rubs, or gallops. PULMONARY: Chest is clear to auscultation, no wheezing or crackles. ABDOMEN: Soft, nontender, nondistended, normoactive bowel sounds. No palpable organomegaly. MUSCULOSKELETAL: No joint swelling or deformity. EXTREMITIES: No cyanosis, clubbing, or pedal edema. NEUROLOGICAL: Gross neurological examination did not reveal any focal deficits. SKIN: No rashes. - Labs CBC & Chem 7: 05/24/21 06:37 05/24/21 06:37 Labs: Abnormal Lab Results - Last 24 Hours (Table) 05/22/21 05/22/21 05/22/21 Range/Units 09:53 17:03 20:33 POC Glucose (mg/dL) 375 H 385 H (75-99) mg/dL Procalcitonin 1.59 H (0.02-0.09) ng/mL 05/23/21 05/23/21 Range/Units 06:57 11:42 POC Glucose (mg/dL) 325 H 345 H (75-99) mg/dL Procalcitonin (0.02-0.09) ng/mL Microbiology - Last 24 Hours (Table) 05/19/21 21:14 Blood Culture - Preliminary Blood No Growth after 72 hours 05/19/21 21:00 Blood Culture - Preliminary Blood No Growth after 72 hours Assessment and Plan Assessment: 1. Acute hypoxic respiratory failure secondary to COVID-19 pneumonia - Patient remains on beta gary therapy, dexamethasone and Lovenox; baricitinib as per pulmonary recommendations; continue with COVID-19 vitamin cocktail 2. Lactic acidosis; possibly related to COVID-19 infection and dehydration; we will continue to trend inflammatory markers and lactic acid levels 3. Hypomagnesemia; resolved 4. Asthma; not in exacerbation; continue with inhaler therapy DVT prophylaxis; SCDs/anticoagulation CODE STATUS; full code
--- NOTE | 2021-05-25 18:50 | P.PN ---
Subjective Progress Note Date: 05/24/21 Principal diagnosis: Acute hypoxemic respiratory failure COVID-19 pneumonia Lactic acidosis 41-year-old male with a known history of asthma and previous history of smoking presents to ER with complaints of worsening shortness of breath, cough and fever. Patient has been sick for the past 1 week. patient was febrile with T- max of 104.1 on admission and was tachycardic and tachypneic with pulse ox 85% on room air on admission. Patient was tested positive for COVID-19 infection in May 13, 2021. Patient was symptomatic for about 2 days prior to his test. Patient was taking [id number] medications and breathing status is not improving. Presented to ER due to worsening symptoms. On admission patient was hypoxic. Chest x-ray showed interval marked worsening appearance of the chest with bilateral multifocal areas of infiltrate suggestive of pneumonia. EKG showed sinus tachycardia. 05/24/2021 Patient is seen and evaluated and discussed with nursing staff; continues to require oxygen at 60 L with at bedtime and see with O2 saturation maintaining between 89-90% Vital signs are stable with temperature of 97.5, pulse 67, respiration 18 and blood pressure 163/67; O2 saturation 93% Lab review shows WBC 13.9, hemoglobin 16.4, platelet count of 333, BUN/creatinine of 32/1 Repeat chest x-ray revealed MILD improvement He is currently on AIRVO; counseling done on self proning for 4-6 hours during the day and 4-6 hours at night as tolerated; continue with Decadron, Lovenox, Symbicort and COVID-19 biotin vitamin cocktail; patient remains on Zosyn as recommended by pulmonary service Objective - Vital Signs Vital signs: Vital Signs Temp 98.4 F 05/24/21 14:49 Pulse 70 05/24/21 14:49 Resp 17 05/24/21 14:49 BP 168/62 05/24/21 14:49 Pulse Ox 87 L 05/24/21 14:49 Intake & Output 05/23/21 05/24/21 05/24/21 18:59 06:59 18:59 Intake Total 240 720 Output Total 500 Balance -260 720 Intake: Oral 240 720 Output: Urine 500 Other: Voiding Method Bedside Commode Bedside Commode Bedside Commode Urinal Urinal Urinal # Voids 3 - Exam PHYSICAL EXAMINATION: GENERAL: The patient is alert and oriented x3, not in any acute distress. Well developed, well nourished. HEENT: Pupils are round and equally reacting to light. EOMI. No scleral icterus. No conjunctival pallor. Normocephalic, atraumatic. No pharyngeal erythema. No thyromegaly. CARDIOVASCULAR: S1 and S2 present. No murmurs, rubs, or gallops. PULMONARY: Chest is clear to auscultation, no wheezing or crackles. ABDOMEN: Soft, nontender, nondistended, normoactive bowel sounds. No palpable organomegaly. MUSCULOSKELETAL: No joint swelling or deformity. EXTREMITIES: No cyanosis, clubbing, or pedal edema. NEUROLOGICAL: Gross neurological examination did not reveal any focal deficits. SKIN: No rashes. - Labs CBC & Chem 7: 05/24/21 06:37 05/24/21 06:37 Labs: Abnormal Lab Results - Last 24 Hours (Table) 05/23/21 05/23/21 05/23/21 Range/Units 16:44 20:30 20:39 WBC (4.50-10.00) X 10*3/uL RBC (4.40-5.60) X 10*6/uL Hct (39.6-50.0) % MCHC (32.0-37.0) g/dL Absolute Nucleated RBC (0.00-0.00) X 10*3/uL Immature Gran # (0.00-0.04) X 10*3/uL Neutrophils # (1.80-7.70) X 10*3/uL Eosinophils # (0.04-0.35) X 10*3/uL NRBC/100 WBC Diff (0.0-0.0) /100 WBCS Anion Gap (4.00-12.00) mmol/L BUN (9.0-27.0) mg/dL BUN/Creatinine Ratio (12.00-20.00) Ratio Glucose (70-110) mg/dL POC Glucose (mg/dL) 408 H 478 H (75-99) mg/dL AST (14-35) U/L ALT (10-49) U/L Albumin/Globulin Ratio (1.60-3.17) g/dL Urine Glucose (UA) 4+ H (Negative) 05/24/21 05/24/21 05/24/21 Range/Units 06:37 06:37 06:51 WBC 13.99 H (4.50-10.00) X 10*3/uL RBC 5.86 H (4.40-5.60) X 10*6/uL Hct 52.7 H (39.6-50.0) % MCHC 31.1 L (32.0-37.0) g/dL Absolute Nucleated RBC 0.02 H (0.00-0.00) X 10*3/uL Immature Gran # 0.61 H (0.00-0.04) X 10*3/uL Neutrophils # 11.24 H (1.80-7.70) X 10*3/uL Eosinophils # 0 L (0.04-0.35) X 10*3/uL NRBC/100 WBC Diff 0.1 H (0.0-0.0) /100 WBCS Anion Gap 15.10 H (4.00-12.00) mmol/L BUN 32.5 H (9.0-27.0) mg/dL BUN/Creatinine Ratio 34.00 H (12.00-20.00) Ratio Glucose 302 H (70-110) mg/dL POC Glucose (mg/dL) 296 H (75-99) mg/dL AST 99 H (14-35) U/L ALT 131 H (10-49) U/L Albumin/Globulin Ratio 1.38 L (1.60-3.17) g/dL Urine Glucose (UA) (Negative) 05/24/21 Range/Units 11:36 WBC (4.50-10.00) X 10*3/uL RBC (4.40-5.60) X 10*6/uL Hct (39.6-50.0) % MCHC (32.0-37.0) g/dL Absolute Nucleated RBC (0.00-0.00) X 10*3/uL Immature Gran # (0.00-0.04) X 10*3/uL Neutrophils # (1.80-7.70) X 10*3/uL Eosinophils # (0.04-0.35) X 10*3/uL NRBC/100 WBC Diff (0.0-0.0) /100 WBCS Anion Gap (4.00-12.00) mmol/L BUN (9.0-27.0) mg/dL BUN/Creatinine Ratio (12.00-20.00) Ratio Glucose (70-110) mg/dL POC Glucose (mg/dL) 425 H (75-99) mg/dL AST (14-35) U/L ALT (10-49) U/L Albumin/Globulin Ratio (1.60-3.17) g/dL Urine Glucose (UA) (Negative) Microbiology - Last 24 Hours (Table) 05/23/21 12:51 Blood Culture - Preliminary Blood No Growth after 24 hours 05/23/21 12:58 Blood Culture - Preliminary Blood No Growth after 24 hours 05/23/21 16:34 Gram Stain - Preliminary Sputum Sputum Culture - Preliminary 05/19/21 21:14 Blood Culture - Preliminary Blood No Growth after 96 hours 05/19/21 21:00 Blood Culture - Preliminary Blood No Growth after 96 hours Assessment and Plan Assessment: 1. Acute hypoxic respiratory failure secondary to COVID-19 pneumonia - Patient remains on beta gary therapy, dexamethasone and Lovenox; baricitinib as per pulmonary recommendations; continue with COVID-19 vitamin cocktail 2. Lactic acidosis; possibly related to COVID-19 infection and dehydration; we will continue to trend inflammatory markers and lactic acid levels 3. Hypomagnesemia; resolved 4. Asthma; not in exacerbation; continue with inhaler therapy DVT prophylaxis; SCDs/anticoagulation CODE STATUS; full code
--- NOTE | 2021-05-25 18:54 | P.PN ---
Subjective Progress Note Date: 05/25/21 Principal diagnosis: Acute hypoxemic respiratory failure COVID-19 pneumonia Lactic acidosis 41-year-old male with a known history of asthma and previous history of smoking presents to ER with complaints of worsening shortness of breath, cough and fever. Patient has been sick for the past 1 week. patient was febrile with T- max of 104.1 on admission and was tachycardic and tachypneic with pulse ox 85% on room air on admission. Patient was tested positive for COVID-19 infection in May 13, 2021. Patient was symptomatic for about 2 days prior to his test. Patient was taking sbem-jum-rfjiypz medications and breathing status is not improving. Presented to ER due to worsening symptoms. On admission patient was hypoxic. Chest x-ray showed interval marked worsening appearance of the chest with bilateral multifocal areas of infiltrate suggestive of pneumonia. EKG showed sinus tachycardia. 05/24/2021 Patient is seen and evaluated and discussed with nursing staff; continues to require oxygen at 60 L with at bedtime and see with O2 saturation maintaining between 89-90% Vital signs are stable with temperature of 97.5, pulse 67, respiration 18 and blood pressure 163/67; O2 saturation 93% Lab review shows WBC 13.9, hemoglobin 16.4, platelet count of 333, BUN/creatinine of 32/1 Repeat chest x-ray revealed MILD improvement He is currently on AIRVO; counseling done on self proning for 4-6 hours during the day and 4-6 hours at night as tolerated; continue with Decadron, Lovenox, Symbicort and COVID-19 biotin vitamin cocktail; patient remains on Zosyn as recommended by pulmonary service 05/25/2021 Patient is evaluated and discussed with nursing staff; remains on O2 at 60 L with O2 saturation between 90-92% Vital signs are reviewed temperature 98.1, pulse 73, respirations 17 and blood pressure of 149/63 Patient remains on therapy with dexamethasone, Lovenox, vitamins; remains on emp iric IV antibiotic therapy in form of Zosyn as recommended by pulmonary service Prognosis remains guarded Objective - Vital Signs Vital signs: Vital Signs Temp 97.6 F 05/25/21 06:20 Pulse 63 05/25/21 06:20 Resp 22 05/25/21 06:20 BP 129/73 05/25/21 06:20 Pulse Ox 89 L 05/25/21 06:20 Intake & Output 05/24/21 05/25/21 05/25/21 18:59 06:59 18:59 Intake Total 2600 480 Balance 2600 480 Intake: Intake, IV Titration 200 Amount Piperacillin-Tazobactam 3 200 .375 gm In Sodium Chloride 0.9% 100 ml @ 25 mls/hr IVPB Q8HR [facility] Rx# :[id number] Oral 2400 480 Other: Voiding Method Bedside Commode Bedside Commode Bedside Commode Urinal Urinal Urinal # Voids 4 - Exam PHYSICAL EXAMINATION: GENERAL: The patient is alert and oriented x3, not in any acute distress. Well developed, well nourished. HEENT: Pupils are round and equally reacting to light. EOMI. No scleral icterus. No conjunctival pallor. Normocephalic, atraumatic. No pharyngeal erythema. No thyromegaly. CARDIOVASCULAR: S1 and S2 present. No murmurs, rubs, or gallops. PULMONARY: Chest is clear to auscultation, no wheezing or crackles. ABDOMEN: Soft, nontender, nondistended, normoactive bowel sounds. No palpable organomegaly. MUSCULOSKELETAL: No joint swelling or deformity. EXTREMITIES: No cyanosis, clubbing, or pedal edema. NEUROLOGICAL: Gross neurological examination did not reveal any focal deficits. SKIN: No rashes. - Labs CBC & Chem 7: 05/24/21 06:37 05/24/21 06:37 Labs: Abnormal Lab Results - Last 24 Hours (Table) 05/24/21 05/24/21 05/24/21 Range/Units 06:37 06:37 11:36 WBC 13.99 H (4.50-10.00) X 10*3/uL RBC 5.86 H (4.40-5.60) X 10*6/uL Hct 52.7 H (39.6-50.0) % MCHC 31.1 L (32.0-37.0) g/dL Absolute Nucleated RBC 0.02 H (0.00-0.00) X 10*3/uL Immature Gran # 0.61 H (0.00-0.04) X 10*3/uL Neutrophils # 11.24 H (1.80-7.70) X 10*3/uL Eosinophils # 0 L (0.04-0.35) X 10*3/uL NRBC/100 WBC Diff 0.1 H (0.0-0.0) /100 WBCS Anion Gap 15.10 H (4.00-12.00) mmol/L BUN 32.5 H (9.0-27.0) mg/dL BUN/Creatinine Ratio 34.00 H (12.00-20.00) Ratio Glucose 302 H (70-110) mg/dL POC Glucose (mg/dL) 425 H (75-99) mg/dL AST 99 H (14-35) U/L ALT 131 H (10-49) U/L Albumin/Globulin Ratio 1.38 L (1.60-3.17) g/dL 05/24/21 05/24/21 05/25/21 Range/Units 16:54 20:53 06:54 WBC (4.50-10.00) X 10*3/uL RBC (4.40-5.60) X 10*6/uL Hct (39.6-50.0) % MCHC (32.0-37.0) g/dL Absolute Nucleated RBC (0.00-0.00) X 10*3/uL Immature Gran # (0.00-0.04) X 10*3/uL Neutrophils # (1.80-7.70) X 10*3/uL Eosinophils # (0.04-0.35) X 10*3/uL NRBC/100 WBC Diff (0.0-0.0) /100 WBCS Anion Gap (4.00-12.00) mmol/L BUN (9.0-27.0) mg/dL BUN/Creatinine Ratio (12.00-20.00) Ratio Glucose (70-110) mg/dL POC Glucose (mg/dL) 454 H 381 H 258 H (75-99) mg/dL AST (14-35) U/L ALT (10-49) U/L Albumin/Globulin Ratio (1.60-3.17) g/dL Microbiology - Last 24 Hours (Table) 05/23/21 16:34 Gram Stain - Final Sputum Sputum Culture - Final 05/19/21 21:14 Blood Culture - Preliminary Blood No Growth after 120 hours 05/19/21 21:00 Blood Culture - Preliminary Blood No Growth after 120 hours 05/23/21 12:51 Blood Culture - Preliminary Blood No Growth after 24 hours 05/23/21 12:58 Blood Culture - Preliminary Blood No Growth after 24 hours Assessment and Plan Assessment: 1. Acute hypoxic respiratory failure secondary to COVID-19 pneumonia - Patient remains on beta gary therapy, dexamethasone and Lovenox; baricitinib as per pulmonary recommendations; continue with COVID-19 vitamin cocktail 2. Lactic acidosis; possibly related to COVID-19 infection and dehydration; we will continue to trend inflammatory markers and lactic acid levels 3. Hypomagnesemia; resolved 4. Asthma; not in exacerbation; continue with inhaler therapy DVT prophylaxis; SCDs/anticoagulation CODE STATUS; full code
[2021-05-25 20:32] LABS: Glucose,Whole Blood 365 mg/dL (75-99)
[2021-05-25] MEDS: INSULIN DETEMIR (LEVEMIR) 100 UNIT/ML SYR SQ SCH (22:00)
--- NOTE | 2021-05-25 23:59 | PN ---
PROGRESS NOTE DATE OF SERVICE: 05/25/2021 REASON FOR FOLLOWUP: COVID-19 pneumonia. INTERVAL HISTORY: Patient is afebrile. The patient is breathing comfortably. The patient denies having chest pain. Occasional cough. No abdominal pain. No diarrhea. PHYSICAL EXAMINATION: Blood pressure 134/77 with a pulse of 82, temperature of 98.1. He is 94% on AIRVO. General description is a middle-aged male up in the bed in no distress. Respiratory system: Unlabored breathing, decreased intensity of breath sounds. No wheeze. Heart S1, S2. Regular rate and rhythm. Abdomen: Soft. LAB: Hemoglobin A1c of 8.1. Sputum culture has been negative. DIAGNOSTIC IMPRESSION AND PLAN: Patient admitted to the hospital with acute respiratory failure secondary to Covid 19 pneumonia. Clinical suspicion low for secondary bacterial pneumonia. Patient seems to be clinically responding to the Dexamethasone, Lovenox, zinc and ascorbic acid to continue and monitor clinical course closely. MMODL / IJN: [id number] /
[2021-05-26] MEDS: PIPERACILLIN-TAZOBACTAM 3.375 GM in SODIUM CHLORIDE 0.9% 100 ML IVPB SCH ×2 (00:53→09:02)
[2021-05-26 07:20] LABS: Glucose,Whole Blood 258 mg/dL (75-99)
[2021-05-26] MEDS: ENOXAPARIN 40 MG/0.4 ML SYRINGE SQ SCH (08:03)
[2021-05-26] MEDS: ASCORBIC ACID 500 MG TAB PO SCH (08:04)
[2021-05-26] MEDS: CHOLECALCIFEROL 25 MCG (1000 IU) TABLET PO SCH (08:04)
[2021-05-26] MEDS: ZINC SULFATE 220 MG CAP PO SCH (08:04)
[2021-05-26] MEDS: INSULIN ASPART (NovoLOG) 100 UNIT/ML VIAL SQ SCH ×7 (08:04→21:09)
[2021-05-26 08:57] VITALS: BMI 39.2
[2021-05-26] MEDS: DEXAMETHASONE SOD PHOSPHATE 10 MG/ML 1 ML VIAL IV SCH ×2 (09:02→21:09)
[2021-05-26 11:46] LABS: Glucose,Whole Blood 354 mg/dL (75-99)
[2021-05-26] MEDS: ALBUTEROL HFA INHALER INHALATION PRN ×3 (12:05→21:16)
[2021-05-26] MEDS: SYMBICORT 160-4.5 MCG INHALER INHALATION SCH ×2 (12:05→21:16)
--- NOTE | 2021-05-26 12:21 | P.PN ---
Subjective Progress Note Date: 05/26/21 this is a 41-year-old male patient with COVID-19 related pneumonia. The patient remains on high flow oxygen at 60 L fluid FiO2 of 90%. There was a concern about a superimposed bacterial infection knowing that his calcitonin level came back at 1.59. The patient was given IV Zosyn. Infectious disease saw the patient and his opinion that is no evidence of any superinfection with bacteria. Blood cultures been negative. He was able to give us a sputum. IV Zosyn has been discontinued. He remains on Decadron 6 mg IV every 12 hours. In terms of his other inflammatory markers, he is showing a d-dimer of 0.4 at time of admission. This has not been repeated. His LDH level was 1046 with a CRP of 3.2. No recent labs are available. Most recent white cell count from few days back is at 13.9. He is afebrile. Is on Symbicort. He is on albuterol HFA. He is on vitamin C and vitamin D. He is off Zosyn for now. Most recent chest x- rays from 05/24/2021 and this was reviewed. Clinically, he is essentially the same and there is no interval worsening in his condition. Objective - Vital Signs Vital signs: Vital Signs Temp 99.7 F H 05/26/21 10:00 Pulse 81 05/26/21 10:00 Resp 16 05/26/21 10:00 BP 115/67 05/26/21 10:00 Pulse Ox 85 L 05/26/21 10:00 Intake & Output 05/25/21 05/26/21 05/26/21 18:59 06:59 18:59 Intake Total 1600 236 Output Total 800 Balance 800 236 Weight 134.717 kg Intake: Oral 1600 236 Output: Urine 800 Other: Voiding Method Bedside Commode Bedside Commode Urinal Urinal # Voids 2 - Exam use of accessory muscles. The patient has only AIRVO on at the current time. HEENT examination is grossly unremarkable. Neck supple. Full range of motion. No adenopathy thyromegaly or neck vein distention. Cardiovascular examination reveals regular rhythm rate. S1-S2 normal. No S3 or S4. No discernible murmur noted. Lungs reveal bibasilar crackles. No rhonchi or wheezes. Breath sounds equal. Abdomen soft bowel sounds are heard. No masses or tenderness. Extremities are intact. No cyanosis clubbing or edema. Skin is without rash or lesion. Neurologic examination is brief but nonfocal. - Labs CBC & Chem 7: 05/24/21 06:37 05/24/21 06:37 Labs: Abnormal Lab Results - Last 24 Hours (Table) 05/25/21 05/25/21 05/25/21 Range/Units 05:28 16:29 20:30 POC Glucose (mg/dL) 362 H 365 H (75-99) mg/dL Hemoglobin A1c 8.1 H (4.0-6.0) % 05/26/21 05/26/21 Range/Units 07:19 11:45 POC Glucose (mg/dL) 258 H 354 H (75-99) mg/dL Hemoglobin A1c (4.0-6.0) % Microbiology - Last 24 Hours (Table) 05/19/21 21:00 Blood Culture - Final Blood No Growth after 144 hours 05/19/21 21:14 Blood Culture - Final Blood No Growth after 144 hours 05/23/21 12:58 Blood Culture - Preliminary Blood No Growth after 48 hours 05/23/21 12:51 Blood Culture - Preliminary Blood No Growth after 48 hours 05/23/21 16:34 Gram Stain - Final Sputum Sputum Culture - Final Assessment and Plan Plan: 1 Acute hypoxemic respiratory failure secondary to coronavirus associated pneumonia.the patient is currently using 100% nonrebreather facemask in addition to high flow oxygen 6 L with an FiO2 of 90%. His breathing is nonlabored. Overnight he is using BiPAP for respiratory support. Is not clear to me if there is any superinfection. Despite a elevated pharmacy.pro-calcitonin level level, my overall suspicion for abacterial infection is quite low in this patient. ID is considering the possibility of adding Baricitinib and this will be further discussed with pharmacy 2 History of chronic bronchial asthma. 3 Previous history of tobacco use. 4 Mild lactic acidosis. 5 Elevated inflammatory marker secondary to coronavirus infection. Plan: repeat inflammatory markers for tomorrow Monitor the oxygenation Continue Decadron continue anticoagulation with Lovenox 40 mg subcu every 24 hours. continue the rest of the supportive care Possible addition of Baricitinib and this will be discussed with IV and pharmacy We'll follow
[2021-05-26 13:58] LABS: C Reactive Protein 5.6 mg/dL (<1.0)
[2021-05-26 17:14] LABS: Glucose,Whole Blood 296 mg/dL (75-99)
--- NOTE | 2021-05-26 18:35 | PN ---
PROGRESS NOTE DATE OF SERVICE: 05/26/2021 REASON FOR FOLLOWUP: COVID-19 pneumonia. INTERVAL HISTORY: The patient is afebrile. The patient did have worsening of his respiratory status and is requiring high-flow oxygen. The patient denies having any chest pain. Did have a cough, not bringing up any sputum. No abdominal pain, no diarrhea. PHYSICAL EXAMINATION: Blood pressure 128/81 with a pulse of 90, temperature 99.5. He is 99% on 15 L high- flow oxygen. General description is a middle-aged male up in the in no distress. Respiratory system: Unlabored breathing, decreased breath sounds in the base, with no wheeze. Heart S1, S2. Regular rate and rhythm. Abdomen soft, no tenderness. LABS: D-dimer is 0.80, LDH is 923, CRP 5.6. DIAGNOSTIC IMPRESSION AND PLAN: Patient with acute respiratory failure secondary to COVID-19 pneumonia. Clinical suspicion low for secondary bacterial pneumonia. Zosyn will be discontinued with worsening respiratory status and possible ( ). May benefit from ( ), discussed with the pulmonary. Continue dexamethasone, Lovenox and ascorbic acid and monitor clinical course closely. MMODL / IJN: [id number] /
[2021-05-26 20:39] LABS: Glucose,Whole Blood 356 mg/dL (75-99)
[2021-05-26] MEDS: INSULIN DETEMIR (LEVEMIR) 100 UNIT/ML SYR SQ SCH (21:09)
[2021-05-27 07:28] LABS: Glucose,Whole Blood 260 mg/dL (75-99)
[2021-05-27] MEDS: ENOXAPARIN 40 MG/0.4 ML SYRINGE SQ SCH (07:47)
[2021-05-27] MEDS: INSULIN ASPART (NovoLOG) 100 UNIT/ML VIAL SQ SCH ×7 (07:47→20:27)
[2021-05-27] MEDS: ZINC SULFATE 220 MG CAP PO SCH (07:48)
[2021-05-27] MEDS: DEXAMETHASONE SOD PHOSPHATE 10 MG/ML 1 ML VIAL IV SCH (07:48)
[2021-05-27] MEDS: CHOLECALCIFEROL 25 MCG (1000 IU) TABLET PO SCH (07:48)
[2021-05-27] MEDS: ASCORBIC ACID 500 MG TAB PO SCH (07:48)
[2021-05-27] MEDS: SYMBICORT 160-4.5 MCG INHALER INHALATION SCH ×2 (08:15→19:33)
[2021-05-27] MEDS: ALBUTEROL HFA INHALER INHALATION PRN ×3 (08:15→19:33)
--- NOTE | 2021-05-27 10:00 | XR ---
EXAMINATION TYPE: XR chest 1V portable DATE OF EXAM: 05/27/2021 COMPARISON: 05/24/2021 HISTORY: Cough TECHNIQUE: Single frontal view of the chest is obtained. FINDINGS: Bilateral multifocal patchy pneumonia culture is stable. No pleural effusion or pneumothor ax. Heart size stable. IMPRESSION: Bilateral multifocal pneumonia is stable
--- NOTE | 2021-05-27 10:44 | P.PN ---
Subjective Progress Note Date: 05/26/21 Principal diagnosis: Acute hypoxemic respiratory failure COVID-19 pneumonia Lactic acidosis 41-year-old male with a known history of asthma and previous history of smoking presents to ER with complaints of worsening shortness of breath, cough and fever. Patient has been sick for the past 1 week. patient was febrile with T- max of 104.1 on admission and was tachycardic and tachypneic with pulse ox 85% on room air on admission. Patient was tested positive for COVID-19 infection in May 13, 2021. Patient was symptomatic for about 2 days prior to his test. Patient was taking ivar-tax-kdbsqpo medications and breathing status is not improving. Presented to ER due to worsening symptoms. On admission patient was hypoxic. Chest x-ray showed interval marked worsening appearance of the chest with bilateral multifocal areas of infiltrate suggestive of pneumonia. EKG showed sinus tachycardia. 05/24/2021 Patient is seen and evaluated and discussed with nursing staff; continues to require oxygen at 60 L with at bedtime and see with O2 saturation maintaining between 89-90% Vital signs are stable with temperature of 97.5, pulse 67, respiration 18 and blood pressure 163/67; O2 saturation 93% Lab review shows WBC 13.9, hemoglobin 16.4, platelet count of 333, BUN/creatinine of 32/1 Repeat chest x-ray revealed MILD improvement He is currently on AIRVO; counseling done on self proning for 4-6 hours during the day and 4-6 hours at night as tolerated; continue with Decadron, Lovenox, Symbicort and COVID-19 biotin vitamin cocktail; patient remains on Zosyn as recommended by pulmonary service 05/25/2021 Patient is evaluated and discussed with nursing staff; remains on O2 at 60 L with O2 saturation between 90-92% Vital signs are reviewed temperature 98.1, pulse 73, respirations 17 and blood pressure of 149/63 Patient remains on therapy with dexamethasone, Lovenox, vitamins; remains on emp iric IV antibiotic therapy in form of Zosyn as recommended by pulmonary service Prognosis remains guarded 05/26/2021 Patient is seen and evaluated Patient is currently using 100% nonrebreather facemask in addition to high flow oxygen 6 L with an FiO2 of 90%. His breathing is nonlabored. Overnight he is using BiPAP for respiratory support. Is not clear to me if there is any superinfection. Despite a elevated pharmacy.pro-calcitonin level level, my overall suspicion for abacterial infection is quite low in this patient. ID is considering the possibility of adding Baricitinib; given concern about a superimposed bacterial infection and elevated procalcitonin level at 1.59, patient was given IV Zosyn. Objective - Vital Signs Vital signs: Vital Signs Temp 99.7 F H 05/26/21 10:00 Pulse 81 05/26/21 10:00 Resp 16 05/26/21 10:00 BP 115/67 05/26/21 10:00 Pulse Ox 85 L 05/26/21 10:00 Intake & Output 05/25/21 05/26/21 05/26/21 18:59 06:59 18:59 Intake Total 1600 236 Output Total 800 Balance 800 236 Weight 134.717 kg Intake: Oral 1600 236 Output: Urine 800 Other: Voiding Method Bedside Commode Bedside Commode Urinal Urinal # Voids 2 - Exam PHYSICAL EXAMINATION: GENERAL: The patient is alert and oriented x3, not in any acute distress. Well developed, well nourished. HEENT: Pupils are round and equally reacting to light. EOMI. No scleral icterus. No conjunctival pallor. Normocephalic, atraumatic. No pharyngeal erythema. No thyromegaly. CARDIOVASCULAR: S1 and S2 present. No murmurs, rubs, or gallops. PULMONARY: Chest is clear to auscultation, no wheezing or crackles. ABDOMEN: Soft, nontender, nondistended, normoactive bowel sounds. No palpable organomegaly. MUSCULOSKELETAL: No joint swelling or deformity. EXTREMITIES: No cyanosis, clubbing, or pedal edema. NEUROLOGICAL: Gross neurological examination did not reveal any focal deficits. SKIN: No rashes. - Labs CBC & Chem 7: 05/24/21 06:37 05/24/21 06:37 Labs: Abnormal Lab Results - Last 24 Hours (Table) 05/25/21 05/25/21 05/26/21 Range/Units 16:29 20:30 07:19 D-Dimer (<0.60) mg/L FEU POC Glucose (mg/dL) 362 H 365 H 258 H (75-99) mg/dL Lactate Dehydrogenase (313-618) U/L C-Reactive Protein (<1.0) mg/dL 05/26/21 05/26/21 05/26/21 Range/Units 11:45 12:59 12:59 D-Dimer 0.80 H (<0.60) mg/L FEU POC Glucose (mg/dL) 354 H (75-99) mg/dL Lactate Dehydrogenase 923 H (313-618) U/L C-Reactive Protein 5.6 H (<1.0) mg/dL Microbiology - Last 24 Hours (Table) 05/19/21 21:00 Blood Culture - Final Blood No Growth after 144 hours 05/19/21 21:14 Blood Culture - Final Blood No Growth after 144 hours 05/23/21 12:58 Blood Culture - Preliminary Blood No Growth after 48 hours 05/23/21 12:51 Blood Culture - Preliminary Blood No Growth after 48 hours Assessment and Plan Assessment: 1. Acute hypoxic respiratory failure secondary to COVID-19 pneumonia - Patient remains on beta gary therapy, dexamethasone and Lovenox; baricitinib as per pulmonary recommendations; continue with COVID-19 vitamin cocktail 2. Lactic acidosis; possibly related to COVID-19 infection and dehydration; we will continue to trend inflammatory markers and lactic acid levels 3. Hypomagnesemia; resolved 4. Asthma; not in exacerbation; continue with inhaler therapy DVT prophylaxis; SCDs/anticoagulation CODE STATUS; full code
[2021-05-27 10:47] LABS: C Reactive Protein 7.2 mg/dL (0.00-0.80)
[2021-05-27 11:39] LABS: Glucose,Whole Blood 252 mg/dL (75-99)
--- NOTE | 2021-05-27 14:42 | P.PN ---
Subjective Progress Note Date: 05/27/21 this is a 41-year-old male patient with COVID-19 related pneumonia. The patient remains on high flow oxygen at 60 L fluid FiO2 of 90%. There was a concern about a superimposed bacterial infection knowing that his calcitonin level came back at 1.59. The patient was given IV Zosyn. Infectious disease saw the patient and his opinion that is no evidence of any superinfection with bacteria. Blood cultures been negative. He was able to give us a sputum. IV Zosyn has been discontinued. He remains on Decadron 6 mg IV every 12 hours. In terms of his other inflammatory markers, he is showing a d-dimer of 0.4 at time of admission. This has not been repeated. His LDH level was 1046 with a CRP of 3.2. No recent labs are available. Most recent white cell count from few days back is at 13.9. He is afebrile. Is on Symbicort. He is on albuterol HFA. He is on vitamin C and vitamin D. He is off Zosyn for now. Most recent chest x- rays from 05/24/2021 and this was reviewed. Clinically, he is essentially the same and there is no interval worsening in his condition. 41-year-old male patient is being seen in follow-up regarding his COVID-19 related pneumonia with hypoxic respiratory failure. The patient is currently on Airvo at 6 L flow with a 90% FiO2. Pulse ox is around 91%. Feeling well. He was taken off the IV Zosyn by infectious disease yesterday. There is no concern of superinfection at this point in time. The patient is going to be started on Baricitinib. Order was given to pharmacy. Meanwhile, the patient continues to be on Decadron 6 mg IV twice a day. Overall clinical status is stable. The patient's d-dimer is at 0.47. No other new labs are available from today. No fever. No chills. No hemodynamic instability. No nausea vomiting or diarrhea. No chest pain. No abdominal pain. No altered mentation. Using incentive spirometer. Is quite active within his room and most from his back to a recliner chair. Objective - Vital Signs Vital signs: Vital Signs Temp 97.8 F 05/27/21 14:00 Pulse 96 05/27/21 14:00 Resp 16 05/27/21 14:00 BP 127/72 05/27/21 14:00 Pulse Ox 92 L 05/27/21 14:00 Intake & Output 05/26/21 05/27/21 05/27/21 18:59 06:59 18:59 Intake Total 708 472 Output Total 400 600 Balance 308 -600 472 Weight 134.717 kg Intake: Oral 708 472 Output: Urine 400 600 - Exam The breathing is nonlabored and the patient is not using accessory muscles of breathing. . The patient is currently on Airvo 60 L with an FiO2 of 90%, and he is not using the 100% on a beta facemasks. HEENT examination is grossly unremarkable. Neck supple. Full range of motion. No adenopathy thyromegaly or neck vein distention. Cardiovascular examination reveals regular rhythm rate. S1-S2 normal. No S3 or S4. No discernible murmur noted. Lungs reveal bibasilar crackles. No rhonchi or wheezes. Breath sounds equal. Abdominal exam revealed normal bowel sounds. The abdomen was soft, non-tender, and without masses, organomegaly, or appreciable enlargement of the abdominal aorta. Extremities are intact. No cyanosis clubbing or edema. Examination of the skin revealed no evidence of significant rashes, suspicious appearing nevi or other concerning lesions. Neurologic examination is brief but nonfocal. - Labs CBC & Chem 7: 05/24/21 06:37 05/24/21 06:37 Labs: Abnormal Lab Results - Last 24 Hours (Table) 05/26/21 05/26/21 05/27/21 Range/Units 17:13 20:37 07:27 POC Glucose (mg/dL) 296 H 356 H 260 H (75-99) mg/dL 05/27/21 Range/Units 11:38 POC Glucose (mg/dL) 252 H (75-99) mg/dL Microbiology - Last 24 Hours (Table) 05/23/21 12:51 Blood Culture - Preliminary Blood No Growth after 72 hours 05/23/21 12:58 Blood Culture - Preliminary Blood No Growth after 72 hours Assessment and Plan Plan: 1 Acute hypoxemic respiratory failure secondary to coronavirus associated pneumonia.the patient is currently using 100% nonrebreather facemask in addition to high flow oxygen 60 L with an FiO2 of 90%. His breathing is nonlabored. Overnight he is using BiPAP for respiratory support. Is not clear to me if there is any superinfection. Despite a elevated pharmacy.pro-calcitonin level level, my overall suspicion for abacterial infection is quite low in this patient. ID is considering the possibility of adding Baricitinib and this will be further discussed with pharmacy. On today's evaluation, the patient was started on Baricitinib. The patient will be kept on Decadron and is also modified to 60 mg IV every 24 hours. Oxygenation remains unchanged. Still requiring Airvo at 60 L with an FiO2 of 90%. Nevertheless clinically he feels better and he feels less short of breath. D-dimer is not elevated. 2 History of chronic bronchial asthma. 3 Previous history of tobacco use. 4 Mild lactic acidosis. 5 Elevated inflammatory marker secondary to coronavirus infection. Plan: repeat inflammatory markers for tomorrow Monitor the oxygenation Continue Decadron, reduce the dose to once a day Decadron 6 mg continue anticoagulation with Lovenox 40 mg subcu every 24 hours. continue the rest of the supportive care Started Baricitinib per protocol We'll follow
[2021-05-27] MEDS: BARICITINIB 2 MG TABLET PO SCH (14:46)
[2021-05-27 17:15] LABS: Glucose,Whole Blood 288 mg/dL (75-99)
[2021-05-27 20:10] LABS: Glucose,Whole Blood 298 mg/dL (75-99)
[2021-05-27] MEDS: INSULIN DETEMIR (LEVEMIR) 100 UNIT/ML SYR SQ SCH (20:27)
--- NOTE | 2021-05-27 22:35 | PN ---
PROGRESS NOTE DATE OF SERVICE: 05/27/2021. REASON FOR FOLLOWUP: Covid 19 pneumonia. INTERVAL HISTORY: Patient is afebrile. The patient still requiring high-flow oxygen and has come in complaining of dryness to the nasal area and nasal cannula oxygen. The patient denies having any chest pain. Did have a cough, not bringing up any sputum though. No abdominal pain and no diarrhea. PHYSICAL EXAMINATION: Blood pressure 125/77 with a pulse of 71, temperature 97.6. He is 92% on nonrebreather. General description is a middle-aged male up in the bed in no distress. Respiratory system: Unlabored breathing, decreased intensity of breath sounds, no wheeze. Heart S1, S2. Regular rate and rhythm. Abdomen soft, no tenderness. LABS: D-dimer 0.47. DIAGNOSTIC IMPRESSION AND PLAN: Patient with acute COVID-19 pneumonia in this patient with concern for possible not behaving as secondary pneumonia. Baricitinib has been added as per discussion with Pulmonary to continue along with Lovenox, dexamethasone, zinc and ascorbic acid and monitor clinical course closely. MMODL / IJN: [id number] /
[2021-05-28 07:16] LABS: Glucose,Whole Blood 138 mg/dL (75-99)
[2021-05-28] MEDS: DEXAMETHASONE SOD PHOSPHATE 10 MG/ML 1 ML VIAL IV SCH (08:04)
[2021-05-28] MEDS: CHOLECALCIFEROL 25 MCG (1000 IU) TABLET PO SCH (08:05)
[2021-05-28] MEDS: ASCORBIC ACID 500 MG TAB PO SCH (08:05)
[2021-05-28] MEDS: INSULIN ASPART (NovoLOG) 100 UNIT/ML VIAL SQ SCH ×7 (08:05→20:43)
[2021-05-28] MEDS: BARICITINIB 2 MG TABLET PO SCH (08:05)
[2021-05-28] MEDS: ZINC SULFATE 220 MG CAP PO SCH (08:05)
[2021-05-28] MEDS: ENOXAPARIN 40 MG/0.4 ML SYRINGE SQ SCH (08:06)
[2021-05-28] MEDS: SYMBICORT 160-4.5 MCG INHALER INHALATION SCH ×2 (09:11→19:30)
--- NOTE | 2021-05-28 11:05 | P.PN ---
Subjective Progress Note Date: 05/27/21 Principal diagnosis: Acute hypoxemic respiratory failure COVID-19 pneumonia Lactic acidosis 41-year-old male with a known history of asthma and previous history of smoking presents to ER with complaints of worsening shortness of breath, cough and fever. Patient has been sick for the past 1 week. patient was febrile with T- max of 104.1 on admission and was tachycardic and tachypneic with pulse ox 85% on room air on admission. Patient was tested positive for COVID-19 infection in May 13, 2021. Patient was symptomatic for about 2 days prior to his test. Patient was taking [id number] medications and breathing status is not improving. Presented to ER due to worsening symptoms. On admission patient was hypoxic. Chest x-ray showed interval marked worsening appearance of the chest with bilateral multifocal areas of infiltrate suggestive of pneumonia. EKG showed sinus tachycardia. 05/24/2021 Patient is seen and evaluated and discussed with nursing staff; continues to require oxygen at 60 L with at bedtime and see with O2 saturation maintaining between 89-90% Vital signs are stable with temperature of 97.5, pulse 67, respiration 18 and blood pressure 163/67; O2 saturation 93% Lab review shows WBC 13.9, hemoglobin 16.4, platelet count of 333, BUN/creatinine of 32/1 Repeat chest x-ray revealed MILD improvement He is currently on AIRVO; counseling done on self proning for 4-6 hours during the day and 4-6 hours at night as tolerated; continue with Decadron, Lovenox, Symbicort and COVID-19 biotin vitamin cocktail; patient remains on Zosyn as recommended by pulmonary service 05/25/2021 Patient is evaluated and discussed with nursing staff; remains on O2 at 60 L with O2 saturation between 90-92% Vital signs are reviewed temperature 98.1, pulse 73, respirations 17 and blood pressure of 149/63 Patient remains on therapy with dexamethasone, Lovenox, vitamins; remains on emp iric IV antibiotic therapy in form of Zosyn as recommended by pulmonary service Prognosis remains guarded 05/26/2021 Patient is seen and evaluated Patient is currently using 100% nonrebreather facemask in addition to high flow oxygen 6 L with an FiO2 of 90%. His breathing is nonlabored. Overnight he is using BiPAP for respiratory support. Is not clear to me if there is any superinfection. Despite a elevated pharmacy.pro-calcitonin level level, my overall suspicion for abacterial infection is quite low in this patient. ID is considering the possibility of adding Baricitinib; given concern about a superimposed bacterial infection and elevated procalcitonin level at 1.59, patient was given IV Zosyn. 05/27/2021 The patient is seen and evaluated and discussed with nursing staff; currently on Airvo at 6 L flow with a 90% FiO2. Pulse ox is around 91%. Vital signs are reviewed and stable with temperature of 97.8, pulse 96, respirations 16 and blood pressure 127/72 Blood glucose remains elevated but gradually improving; d-dimer is trending down and is 0.47 this morning Patient has been taken off the IV Zosyn by infectious disease due to lack of concern of superinfection at this point in time. The patient is going to be started on Baricitinib. Patient remains on Decadron 6 mg IV twice a day. Objective - Vital Signs Vital signs: Vital Signs Temp 97.9 F 05/27/21 10:00 Pulse 89 05/27/21 10:00 Resp 16 05/27/21 10:00 BP 115/70 05/27/21 10:00 Pulse Ox 91 L 05/27/21 11:40 Intake & Output 05/26/21 05/27/21 05/27/21 18:59 06:59 18:59 Intake Total 708 236 Output Total 400 600 Balance 308 -600 236 Weight 134.717 kg Intake: Oral 708 236 Output: Urine 400 600 - Exam PHYSICAL EXAMINATION: GENERAL: The patient is alert and oriented x3, not in any acute distress. Well developed, well nourished. HEENT: Pupils are round and equally reacting to light. EOMI. No scleral icterus. No conjunctival pallor. Normocephalic, atraumatic. No pharyngeal erythema. No thyromegaly. CARDIOVASCULAR: S1 and S2 present. No murmurs, rubs, or gallops. PULMONARY: Chest is clear to auscultation, no wheezing or crackles. ABDOMEN: Soft, nontender, nondistended, normoactive bowel sounds. No palpable organomegaly. MUSCULOSKELETAL: No joint swelling or deformity. EXTREMITIES: No cyanosis, clubbing, or pedal edema. NEUROLOGICAL: Gross neurological examination did not reveal any focal deficits. SKIN: No rashes. - Labs CBC & Chem 7: 05/24/21 06:37 05/24/21 06:37 Labs: Abnormal Lab Results - Last 24 Hours (Table) 05/26/21 05/26/21 05/26/21 Range/Units 12:59 12:59 17:13 D-Dimer 0.80 H (<0.60) mg/L FEU POC Glucose (mg/dL) 296 H (75-99) mg/dL Lactate Dehydrogenase 923 H (313-618) U/L C-Reactive Protein 5.6 H (<1.0) mg/dL 05/26/21 05/27/21 05/27/21 Range/Units 20:37 07:27 11:38 D-Dimer (<0.60) mg/L FEU POC Glucose (mg/dL) 356 H 260 H 252 H (75-99) mg/dL Lactate Dehydrogenase (313-618) U/L C-Reactive Protein (<1.0) mg/dL Microbiology - Last 24 Hours (Table) 05/23/21 12:51 Blood Culture - Preliminary Blood No Growth after 72 hours 05/23/21 12:58 Blood Culture - Preliminary Blood No Growth after 72 hours Assessment and Plan Assessment: 1. Acute hypoxic respiratory failure secondary to COVID-19 pneumonia - Patient remains on beta gary therapy, dexamethasone and Lovenox; baricitinib as per pulmonary recommendations; continue with COVID-19 vitamin cocktail 2. Lactic acidosis; possibly related to COVID-19 infection and dehydration; we will continue to trend inflammatory markers and lactic acid levels 3. Hypomagnesemia; resolved 4. Asthma; not in exacerbation; continue with inhaler therapy DVT prophylaxis; SCDs/anticoagulation CODE STATUS; full code
[2021-05-28 11:40] LABS: Basophils # (A) 0.07 X 10*3/uL (0.00-0.10); Basophils % (A) 0.4 %; Eosinophils # (A) 0 X 10*3/uL (0.04-0.35); Eosinophils % (A) 0 %; HGB 16.3 g/dL (13.0-17.0); Lymphocytes # (A) 1.31 X 10*3/uL (0.90-5.00); Lymphocytes % (A) 6.6 %; MCH 28.4 pg (27.0-32.0); MCHC 31.3 g/dL (32.0-37.0); MCV 90.8 fL (80.0-97.0); Mean Platelet Volume 10.7 fL (9.5-12.2); Monocytes # (A) 0.76 X 10*3/uL (0.20-1.00); Monocytes % (A) 3.8 %; Neutrophils # (A) 16.97 X 10*3/uL (1.80-7.70); Neutrophils % (A) 85.7 %; Platelet Count 392 X 10*3/uL (140-440); RBC 5.73 X 10*6/uL (4.40-5.60); RDW 13.6 % (11.5-14.5)
[2021-05-28 12:11] LABS: C Reactive Protein 5.5 mg/dL (0.00-0.80)
[2021-05-28 13:19] LABS: Glucose,Whole Blood 219 mg/dL (75-99)
[2021-05-28] MEDS ORDERED: ACETAMINOPHEN TAB 325 MG TAB PO PRN (13:23)
--- NOTE | 2021-05-28 13:31 | P.PN ---
Subjective Progress Note Date: 05/28/21 Today's evaluation of 05/28/2021, the patient is being seen for a follow-up. The patient had difficulties overnight as the patient woke up with the BiPAP mask being off. He was desaturating and he was having significant amount of respiratory distress. Pulse ox dropped down in the mid 70s. Currently is back on a BiPAP at a pressure of 10/5 cm of water. His current pulse ox and order of 92%. He seems to be much more comfortable compared to earlier this morning. Meanwhile, the patient on a combination of Decadron and Baricitinib. His white cell count is at 19.8. He continues to have a component of lymphopenia. D- dimer is at 1.33. Glucose level is at 219. His LDH level has to be rechecked again in his liver from 2 days ago was 923. His CRP level is at 5.5. His last chest x-ray was from yesterday which was reviewed and the patient had diffuse bilateral pulmonary infiltrates consistent with COVID-19 related pneumonia. The findings are essentially stable. He is using incentive spirometer. He is a bit anxious. He is on Symbicort. Using albuterol as needed. He is also on a c ombination of vitamin C and vitamin D. All of the antibiotics have been discontinued. The patient is not running any fever. Patient is hemodynamically stable. He does have high flow oxygen and the pulmonary Airvo at the bedside. For now he is using the BiPAP. Objective - Vital Signs Vital signs: Vital Signs Temp 99 F 05/28/21 09:36 Pulse 126 H 05/28/21 09:36 Resp 20 05/28/21 09:36 BP 106/70 05/28/21 09:36 Pulse Ox 93 L 05/28/21 11:30 Intake & Output 05/27/21 05/28/21 05/28/21 18:59 06:59 18:59 Intake Total 708 Output Total 300 1974 Balance 408 Intake: Oral 708 Output: Urine 300 1974 Other: Voiding Method Urinal - Exam The breathing is nonlabored and the patient is not using accessory muscles of breathing. . The patient is currently on BIPAP 05/13 HEENT examination is grossly unremarkable. Neck supple. Full range of motion. No adenopathy thyromegaly or neck vein d istention. Cardiovascular examination reveals regular rhythm rate. S1-S2 normal. No S3 or S4. No discernible murmur noted. Lungs reveal bibasilar crackles. No rhonchi or wheezes. Breath sounds equal. Abdominal exam revealed normal bowel sounds. The abdomen was soft, non-tender, and without masses, organomegaly, or appreciable enlargement of the abdominal aorta. Extremities are intact. No cyanosis clubbing or edema. Examination of the skin revealed no evidence of significant rashes, suspicious appearing nevi or other concerning lesions. Neurologic examination is brief but nonfocal. - Labs CBC & Chem 7: 05/28/21 07:53 05/24/21 06:37 Labs: Abnormal Lab Results - Last 24 Hours (Table) 05/27/21 05/27/21 05/28/21 Range/Units 17:14 20:07 07:15 WBC (4.50-10.00) X 10*3/uL RBC (4.40-5.60) X 10*6/uL Hct (39.6-50.0) % MCHC (32.0-37.0) g/dL Immature Gran # (0.00-0.04) X 10*3/uL Neutrophils # (1.80-7.70) X 10*3/uL Eosinophils # (0.04-0.35) X 10*3/uL D-Dimer (<0.60) mg/L FEU POC Glucose (mg/dL) 288 H 298 H 138 H (75-99) mg/dL C-Reactive Protein (0.00-0.80) mg/dL 05/28/21 05/28/21 05/28/21 Range/Units 07:53 07:53 07:53 WBC 19.80 H (4.50-10.00) X 10*3/uL RBC 5.73 H (4.40-5.60) X 10*6/uL Hct 52.0 H (39.6-50.0) % MCHC 31.3 L (32.0-37.0) g/dL Immature Gran # 0.69 H (0.00-0.04) X 10*3/uL Neutrophils # 16.97 H (1.80-7.70) X 10*3/uL Eosinophils # 0 L (0.04-0.35) X 10*3/uL D-Dimer 1.33 H (<0.60) mg/L FEU POC Glucose (mg/dL) (75-99) mg/dL C-Reactive Protein 5.50 H (0.00-0.80) mg/dL 05/28/21 Range/Units 13:14 WBC (4.50-10.00) X 10*3/uL RBC (4.40-5.60) X 10*6/uL Hct (39.6-50.0) % MCHC (32.0-37.0) g/dL Immature Gran # (0.00-0.04) X 10*3/uL Neutrophils # (1.80-7.70) X 10*3/uL Eosinophils # (0.04-0.35) X 10*3/uL D-Dimer (<0.60) mg/L FEU POC Glucose (mg/dL) 219 H (75-99) mg/dL C-Reactive Protein (0.00-0.80) mg/dL Microbiology - Last 24 Hours (Table) 05/23/21 12:51 Blood Culture - Preliminary Blood No Growth after 96 hours 05/23/21 12:58 Blood Culture - Preliminary Blood No Growth after 96 hours Assessment and Plan Plan: 1 Acute hypoxemic respiratory failure secondary to coronavirus associated pneumonia.the patient is currently using 100% nonrebreather facemask in addition to high flow oxygen 60 L with an FiO2 of 90%. His breathing is nonlabored. Overnight he is using BiPAP for respiratory support. Is not clear to me if there is any superinfection. Despite a elevated pharmacy.pro-calcitonin level level, my overall suspicion for abacterial infection is quite low in this patient. The patient is currently on BiPAP at a pressure of 10/5. He is ge nerating a tidal volume of 900 mL at least with a respiratory rate of 22. His minute ventilation remains quite elevated. He is comfortable. His pulse ox is around 88-89%. No new complaints otherwise for now. His breathing is mildly labored. We'll continue the Decadron. We'll continue the Baricitinib. We'll continue the Lovenox. Repeat inflammatory markers in a.m. Repeat chest x-ray in a.m. 2 History of chronic bronchial asthma. 3 Previous history of tobacco use. 4 Mild lactic acidosis. 5 Elevated inflammatory marker secondary to coronavirus infection. Plan: repeat inflammatory markers for tomorrow Monitor the oxygenation Continue Decadron, the white cell count to be monitored Continue Baricitinib The patient's x-ray in the morning continue anticoagulation with Lovenox 40 mg subcu every 24 hours. continue the rest of the supportive care Transfer the patient that I see if there is any worsening. We'll continue to follow.
[2021-05-28] MEDS: ALBUTEROL HFA INHALER INHALATION PRN ×2 (17:00→19:31)
[2021-05-28 17:02] LABS: Glucose,Whole Blood 312 mg/dL (75-99)
--- NOTE | 2021-05-28 18:05 | PN ---
PROGRESS NOTE DATE OF SERVICE: 05/28/2021 REASON FOR FOLLOWUP: COVID-19 pneumonia. INTERVAL HISTORY: The patient is afebrile, has been complaining of shortness of breath. Still on AIRVO. The patient denies having any chest pain. Cough has decreased in intensity. No vomiting. No abdominal pain or diarrhea. PHYSICAL EXAMINATION: Blood pressure 118/78 with a pulse of 76, temperature 97.9. He is 93% on a non- rebreather. General description is a middle-aged male up in the chair in no distress. RESPIRATORY SYSTEM: Unlabored breathing. Decreased intensity of breath sounds. No wheeze. HEART: S1, S2. Regular rate and rhythm. ABDOMEN: Soft. No tenderness. LABS: Hemoglobin is 16.3. D-dimer is 1.63. 5.50. DIAGNOSTIC IMPRESSION AND PLAN: 1. Patient with acute respiratory failure secondary to COVID-19 pneumonia in this patient with significant worsening of his respiratory status. He has been started on ; to continue along with dexamethasone, Lovenox, zinc, ascorbic acid. 2. Elevated white count, more likely steroid effect. No evidence of any worsening. Continue with supportive care. MMODL / IJN: [id number] /
[2021-05-28 20:20] LABS: Glucose,Whole Blood 311 mg/dL (75-99)
[2021-05-28] MEDS: INSULIN DETEMIR (LEVEMIR) 100 UNIT/ML SYR SQ SCH (20:43)
[2021-05-28 21:01] LABS: African American GFR (CKD) 102.6 (60.0-200.0); Albumin 3.7 g/dL (3.8-4.9); Albumin/Globulin Ratio 1.16 (1.60-3.17); Anion Gap 16.7 mmol/L (4.00-12.00); BUN/Creat Ratio 26.41 Ratio (12.00-20.00); Blood Urea Nitrogen 27.2 mg/dL (9.0-27.0); Calcium 9.5 mg/dL (8.7-10.3); Globulin 3.2 g/dL (1.6-3.3); Non-African American GFR(CKD) 88.6 (60.0-200.0); Potassium 4.9 mmol/L (3.5-5.5); Total Protein 6.8 g/dL (6.2-8.2)
--- NOTE | 2021-05-28 22:25 | P.PN ---
Subjective Progress Note Date: 05/28/21 Principal diagnosis: Acute hypoxemic respiratory failure COVID-19 pneumonia Lactic acidosis 41-year-old male with a known history of asthma and previous history of smoking presents to ER with complaints of worsening shortness of breath, cough and fever. Patient has been sick for the past 1 week. patient was febrile with T- max of 104.1 on admission and was tachycardic and tachypneic with pulse ox 85% on room air on admission. Patient was tested positive for COVID-19 infection in May 13, 2021. Patient was symptomatic for about 2 days prior to his test. Patient was taking [id number] medications and breathing status is not improving. Presented to ER due to worsening symptoms. On admission patient was hypoxic. Chest x-ray showed interval marked worsening appearance of the chest with bilateral multifocal areas of infiltrate suggestive of pneumonia. EKG showed sinus tachycardia. 05/24/2021 Patient is seen and evaluated and discussed with nursing staff; continues to require oxygen at 60 L with at bedtime and see with O2 saturation maintaining between 89-90% Vital signs are stable with temperature of 97.5, pulse 67, respiration 18 and blood pressure 163/67; O2 saturation 93% Lab review shows WBC 13.9, hemoglobin 16.4, platelet count of 333, BUN/creatinine of 32/1 Repeat chest x-ray revealed MILD improvement He is currently on AIRVO; counseling done on self proning for 4-6 hours during the day and 4-6 hours at night as tolerated; continue with Decadron, Lovenox, Symbicort and COVID-19 biotin vitamin cocktail; patient remains on Zosyn as recommended by pulmonary service 05/25/2021 Patient is evaluated and discussed with nursing staff; remains on O2 at 60 L with O2 saturation between 90-92% Vital signs are reviewed temperature 98.1, pulse 73, respirations 17 and blood pressure of 149/63 Patient remains on therapy with dexamethasone, Lovenox, vitamins; remains on emp iric IV antibiotic therapy in form of Zosyn as recommended by pulmonary service Prognosis remains guarded 05/26/2021 Patient is seen and evaluated Patient is currently using 100% nonrebreather facemask in addition to high flow oxygen 6 L with an FiO2 of 90%. His breathing is nonlabored. Overnight he is using BiPAP for respiratory support. Is not clear to me if there is any superinfection. Despite a elevated pharmacy.pro-calcitonin level level, my overall suspicion for abacterial infection is quite low in this patient. ID is considering the possibility of adding Baricitinib; given concern about a superimposed bacterial infection and elevated procalcitonin level at 1.59, patient was given IV Zosyn. 05/27/2021 The patient is seen and evaluated and discussed with nursing staff; currently on Airvo at 6 L flow with a 90% FiO2. Pulse ox is around 91%. Vital signs are reviewed and stable with temperature of 97.8, pulse 96, respirations 16 and blood pressure 127/72 Blood glucose remains elevated but gradually improving; d-dimer is trending down and is 0.47 this morning Patient has been taken off the IV Zosyn by infectious disease due to lack of concern of superinfection at this point in time. The patient is going to be started on Baricitinib. Patient remains on Decadron 6 mg IV twice a day. 05/28/2021 Patient is seen and evaluated in room and discussed with nursing staff. Patient experienced difficulty overnight and found BIPAP mask off upon awakening in the morning. Patient had significant respiratory distress with pulse ox trending downward to the mid 70s. Patient is back on the BIPAP and is in no longer in severe distress as he experienced earlier. He is on a regimen of Decadron and Caricitinib. His WBC count remains at 19.8 however he still suffers from a component of lymphopenia. D-dimer is at 1.33, glucose at 219, and LDH is now 923 after re-evaluation after 2 days. Chest x ray which was conducted yesterday shows diffuse bilateral pulmonary infiltrates consistent with COVID pneumonia. Patient is also using a incentive spiromter, on symbicort, and using albuterol as needed. Antibiotics have been discontinued and patietn is afebrile, hemodynamically stable, no major chagnes other than pulse ox drop from this morning. Objective - Vital Signs Vital signs: Vital Signs Temp 99 F 05/28/21 09:36 Pulse 126 H 05/28/21 09:36 Resp 20 05/28/21 09:36 BP 106/70 05/28/21 09:36 Pulse Ox 92 L 05/28/21 09:36 Intake & Output 05/27/21 05/28/21 05/28/21 18:59 06:59 18:59 Intake Total 708 Output Total 300 1974 Balance 408 -1974 Intake: Oral 708 Output: Urine 300 1974 Other: Voiding Method Urinal - Exam PHYSICAL EXAMINATION: GENERAL: The patient is alert and oriented x3, not in any acute distress. Well developed, well nourished. HEENT: Pupils are round and equally reacting to light. EOMI. No scleral icterus. No conjunctival pallor. Normocephalic, atraumatic. No pharyngeal erythema. No thyromegaly. CARDIOVASCULAR: S1 and S2 present. No murmurs, rubs, or gallops. PULMONARY: Chest is clear to auscultation, no wheezing or crackles. ABDOMEN: Soft, nontender, nondistended, normoactive bowel sounds. No palpable organomegaly. MUSCULOSKELETAL: No joint swelling or deformity. EXTREMITIES: No cyanosis, clubbing, or pedal edema. NEUROLOGICAL: Gross neurological examination did not reveal any focal deficits. SKIN: No rashes. - Labs CBC & Chem 7: 05/28/21 07:53 05/28/21 07:53 Labs: Abnormal Lab Results - Last 24 Hours (Table) 05/27/21 05/27/21 05/27/21 Range/Units 11:38 17:14 20:07 D-Dimer (<0.60) mg/L FEU POC Glucose (mg/dL) 252 H 288 H 298 H (75-99) mg/dL 05/28/21 05/28/21 Range/Units 07:15 07:53 D-Dimer 1.33 H (<0.60) mg/L FEU POC Glucose (mg/dL) 138 H (75-99) mg/dL Microbiology - Last 24 Hours (Table) 05/23/21 12:51 Blood Culture - Preliminary Blood No Growth after 96 hours 05/23/21 12:58 Blood Culture - Preliminary Blood No Growth after 96 hours Assessment and Plan Assessment: 1. Acute hypoxic respiratory failure secondary to COVID-19 pneumonia - Patient remains on beta gary therapy, dexamethasone and Lovenox; ba ricitinib as per pulmonary recommendations; continue with COVID-19 vitamin cocktail 2. Lactic acidosis; possibly related to COVID-19 infection and dehydration; we will continue to trend inflammatory markers and lactic acid levels 3. Hypomagnesemia; resolved 4. Asthma; not in exacerbation; continue with inhaler therapy DVT prophylaxis; SCDs/anticoagulation CODE STATUS; full code
[2021-05-29 07:01] LABS: Glucose,Whole Blood 139 mg/dL (75-99)
[2021-05-29] MEDS: ALBUTEROL HFA INHALER INHALATION PRN ×4 (07:43→19:18)
[2021-05-29] MEDS: SYMBICORT 160-4.5 MCG INHALER INHALATION SCH ×2 (07:43→19:18)
[2021-05-29] MEDS: BARICITINIB 2 MG TABLET PO SCH (09:00)
[2021-05-29] MEDS: INSULIN ASPART (NovoLOG) 100 UNIT/ML VIAL SQ SCH ×7 (09:01→20:26)
[2021-05-29] MEDS: DEXAMETHASONE SOD PHOSPHATE 10 MG/ML 1 ML VIAL IV SCH ×2 (09:01→12:27)
[2021-05-29] MEDS: ASCORBIC ACID 500 MG TAB PO SCH (09:02)
[2021-05-29] MEDS: ENOXAPARIN 40 MG/0.4 ML SYRINGE SQ SCH (09:02)
[2021-05-29] MEDS: ZINC SULFATE 220 MG CAP PO SCH (09:02)
[2021-05-29] MEDS: CHOLECALCIFEROL 25 MCG (1000 IU) TABLET PO SCH (09:02)
--- NOTE | 2021-05-29 10:38 | XR ---
EXAMINATION TYPE: XR chest 1V portable DATE OF EXAM: 05/29/2021 COMPARISON: Chest x-ray 05/27/2021 HISTORY: Covid 19 pneumonia TECHNIQUE: Single frontal view of the chest is obtained. FINDINGS: Bilateral airspace disease is again noted, may have progressed somewhat in the interval. N o other interval change. IMPRESSION: Findings consistent with patient's history
[2021-05-29 11:44] LABS: Glucose,Whole Blood 181 mg/dL (75-99)
[2021-05-29 13:08] LABS: HCT 48.5 % (39.6-50.0); HGB 15.3 g/dL (13.0-17.0); MCH 28.7 pg (27.0-32.0); MCHC 31.5 g/dL (32.0-37.0); Platelet Count 471 X 10*3/uL (140-440); RBC 5.33 X 10*6/uL (4.40-5.60); RDW 13.6 % (11.5-14.5); WBC 23.09 X 10*3/uL (4.50-10.00)
[2021-05-29 13:57] LABS: African American GFR (CKD) 121.9 (60.0-200.0); Albumin 3.4 g/dL (3.8-4.9); Albumin/Globulin Ratio 1.24 (1.60-3.17); BUN/Creat Ratio 28.41 Ratio (12.00-20.00); Calcium 9.3 mg/dL (8.7-10.3); Carbon Dioxide 23.5 mmol/L (21.6-31.8); Globulin 2.8 g/dL (1.6-3.3); Non-African American GFR(CKD) 105.2 (60.0-200.0); Potassium 4.4 mmol/L (3.5-5.5); Total Bilirubin 0.8 mg/dL (0.30-1.20); Total Protein 6.2 g/dL (6.2-8.2)
[2021-05-29 14:09] LABS: Basophils # (A) 0.12 X 10*3/uL (0.00-0.10); Basophils % (A) 0.5 %; Eosinophils # (A) 0.06 X 10*3/uL (0.04-0.35); Eosinophils % (A) 0.3 %; Lymphocytes # (A) 1.12 X 10*3/uL (0.90-5.00); Lymphocytes % (A) 4.9 %; Monocytes # (A) 0.96 X 10*3/uL (0.20-1.00); Monocytes % (A) 4.2 %; Neutrophils # (A) 20.27 X 10*3/uL (1.80-7.70); Neutrophils % (A) 87.7 %
--- NOTE | 2021-05-29 17:04 | P.PN ---
Subjective Progress Note Date: 05/29/21 05/29/2021, the patient is on Airvo 60 L with an FiO2 of 90%. He is alternating along with a BiPAP at a pressure of 10/5 cm of water with an FiO2 of 100%. His pulse ox is ranging between 88-91%. He is feeling better than yesterday. He is breathing easier. He is less anxious. He is tolerating his diet. No chest pain. No nausea or vomiting or diarrhea. No fluid overload. He continues to be on a combination of vitamin C and vitamin D and zinc. He is hemodynamically stable. His white blood count today that 23.09. He remains on a combination of Decadron and Baricitinib. No fever. No signs of any infection or sepsis. Objective - Vital Signs Vital signs: Vital Signs Temp 98.1 F 05/29/21 13:44 Pulse 79 05/29/21 13:44 Resp 17 05/29/21 13:44 BP 119/64 05/29/21 13:44 Pulse Ox 94 L 05/29/21 13:44 Intake & Output 05/28/21 05/29/21 05/29/21 18:59 06:59 18:59 Output Total 1500 600 Balance -1500 -600 Output: Urine 1500 600 Other: Voiding Method Urinal Urinal - Exam The breathing is nonlabored and the patient is not using accessory muscles of breathing. . The patient is currently on BIPAP 10/5, alternating with Airvo 60 liters with an FiO2 of 90% HEENT examination is grossly unremarkable. Neck supple. Full range of motion. No adenopathy thyromegaly or neck vein distention. Cardiovascular examination reveals regular rhythm rate. S1-S2 normal. No S3 or S4. No discernible murmur noted. Lungs reveal bibasilar crackles. No rhonchi or wheezes. Breath sounds equal. Abdominal exam revealed normal bowel sounds. The abdomen was soft, non-tender, and without masses, organomegaly, or appreciable enlargement of the abdominal aorta. Extremities are intact. No cyanosis clubbing or edema. Examination of the skin revealed no evidence of significant rashes, suspicious appearing nevi or other concerning lesions. Neurologic examination is brief but nonfocal. - Labs CBC & Chem 7: 05/29/21 08:07 05/29/21 08:07 Labs: Abnormal Lab Results - Last 24 Hours (Table) 05/28/21 05/28/21 05/28/21 Range/Units 07:53 07:53 16:59 WBC (4.50-10.00) X 10*3/uL MCHC (32.0-37.0) g/dL Plt Count (140-440) X 10*3/uL Immature Gran # (0.00-0.04) X 10*3/uL Neutrophils # (1.80-7.70) X 10*3/uL Basophils # (0.00-0.10) X 10*3/uL Anion Gap 16.70 H (4.00-12.00) mmol/L BUN 27.2 H (9.0-27.0) mg/dL BUN/Creatinine Ratio 26.41 H (12.00-20.00) Ratio Glucose 117 H (70-110) mg/dL POC Glucose (mg/dL) 312 H (75-99) mg/dL Ferritin 2277.0 H (22.0-322.0) ng/mL AST 104 H (14-35) U/L ALT 153 H (10-49) U/L Lactate Dehydrogenase 522 H (120-246) U/L Albumin 3.7 L (3.8-4.9) g/dL Albumin/Globulin Ratio 1.16 L (1.60-3.17) g/dL 05/28/21 05/29/21 05/29/21 Range/Units 20:17 06:57 08:07 WBC 23.09 H (4.50-10.00) X 10*3/uL MCHC 31.5 L (32.0-37.0) g/dL Plt Count 471 H (140-440) X 10*3/uL Immature Gran # 0.56 H (0.00-0.04) X 10*3/uL Neutrophils # 20.27 H (1.80-7.70) X 10*3/uL Basophils # 0.12 H (0.00-0.10) X 10*3/uL Anion Gap (4.00-12.00) mmol/L BUN (9.0-27.0) mg/dL BUN/Creatinine Ratio (12.00-20.00) Ratio Glucose (70-110) mg/dL POC Glucose (mg/dL) 311 H 139 H (75-99) mg/dL Ferritin (22.0-322.0) ng/mL AST (14-35) U/L ALT (10-49) U/L Lactate Dehydrogenase (120-246) U/L Albumin (3.8-4.9) g/dL Albumin/Globulin Ratio (1.60-3.17) g/dL 05/29/21 05/29/21 Range/Units 08:07 11:39 WBC (4.50-10.00) X 10*3/uL MCHC (32.0-37.0) g/dL Plt Count (140-440) X 10*3/uL Immature Gran # (0.00-0.04) X 10*3/uL Neutrophils # (1.80-7.70) X 10*3/uL Basophils # (0.00-0.10) X 10*3/uL Anion Gap 16.00 H (4.00-12.00) mmol/L BUN (9.0-27.0) mg/dL BUN/Creatinine Ratio 28.41 H (12.00-20.00) Ratio Glucose 195 H (70-110) mg/dL POC Glucose (mg/dL) 181 H (75-99) mg/dL Ferritin (22.0-322.0) ng/mL AST 49 H (14-35) U/L ALT 129 H (10-49) U/L Lactate Dehydrogenase (120-246) U/L Albumin 3.4 L (3.8-4.9) g/dL Albumin/Globulin Ratio 1.24 L (1.60-3.17) g/dL Microbiology - Last 24 Hours (Table) 05/23/21 12:51 Blood Culture - Final Blood No Growth after 144 hours 05/23/21 12:58 Blood Culture - Final Blood No Growth after 144 hours Assessment and Plan Plan: 1 Acute hypoxemic respiratory failure secondary to coronavirus associated pneumonia.the patient is currently using 100% nonrebreather facemask in addition to high flow oxygen 60 L with an FiO2 of 90%. His breathing is nonlabored. The patient is on Baricitinib. The patient is on Decadron. The patient is stable for now alternating between Airvo high flow at 60 L and BiPAP. 2 History of chronic bronchial asthma. 3 Previous history of tobacco use. 4 Mild lactic acidosis. 5 Elevated inflammatory marker secondary to coronavirus infection. Plan: repeat inflammatory markers for tomorrow Monitor the oxygenation Continue Decadron, the white cell count to be monitored Continue Baricitinib The patient's x-ray in the morning continue anticoagulation with Lovenox 40 mg subcu every 24 hours. continue the rest of the supportive care Transfer the patient that I see if there is any worsening. We'll continue to sue mata.
[2021-05-29 17:06] LABS: Glucose,Whole Blood 221 mg/dL (75-99)
[2021-05-29 20:08] LABS: Glucose,Whole Blood 308 mg/dL (75-99)
[2021-05-29] MEDS: INSULIN DETEMIR (LEVEMIR) 100 UNIT/ML SYR SQ SCH (20:26)
--- NOTE | 2021-05-29 22:55 | PN ---
PROGRESS NOTE DATE OF SERVICE: 05/29/2021 REASON FOR FOLLOWUP: COVID-19 pneumonia. INTERVAL HISTORY: The patient is afebrile. The patient is still requiring high-flow oxygen to support his saturations. The patient denies having any chest pain or worsening cough. No nausea, no vomiting. No abdominal pain or diarrhea. PHYSICAL EXAMINATION: Blood pressure 115/55 with a pulse of 86, temperature 97.9. He is 95% on AIRVO. General description is a middle-aged male up in the bed in no distress. RESPIRATORY SYSTEM: Unlabored breathing. Decreased intensity of breath sounds. No wheeze. HEART: S1, S2. Regular rate and rhythm. ABDOMEN: Soft. No tenderness. LABS: Hemoglobin is 15.3, white count of 23.01. Creatinine is 0.9. Liver enzymes are mildly elevated. DIAGNOSTIC IMPRESSION AND PLAN: Patient with acute respiratory failure secondary to COVID-19 pneumonia. This patient did have very minimal clinical chest x-ray with no significant change. Patient to continue the baricitinib in addition to the dexamethasone, Lovenox, zinc, ascorbic acid. Monitor his clinical course closely. Continue with supportive care. MMODL / IJN: [id number] /
--- NOTE | 2021-05-30 01:46 | P.PN ---
Subjective Progress Note Date: 05/29/21 Principal diagnosis: Acute hypoxemic respiratory failure COVID-19 pneumonia Lactic acidosis 41-year-old male with a known history of asthma and previous history of smoking presents to ER with complaints of worsening shortness of breath, cough and fever. Patient has been sick for the past 1 week. patient was febrile with T- max of 104.1 on admission and was tachycardic and tachypneic with pulse ox 85% on room air on admission. Patient was tested positive for COVID-19 infection in May 13, 2021. Patient was symptomatic for about 2 days prior to his test. Patient was taking [id number] medications and breathing status is not improving. Presented to ER due to worsening symptoms. On admission patient was hypoxic. Chest x-ray showed interval marked worsening appearance of the chest with bilateral multifocal areas of infiltrate suggestive of pneumonia. EKG showed sinus tachycardia. 05/24/2021 Patient is seen and evaluated and discussed with nursing staff; continues to require oxygen at 60 L with at bedtime and see with O2 saturation maintaining between 89-90% Vital signs are stable with temperature of 97.5, pulse 67, respiration 18 and blood pressure 163/67; O2 saturation 93% Lab review shows WBC 13.9, hemoglobin 16.4, platelet count of 333, BUN/creatinine of 32/1 Repeat chest x-ray revealed MILD improvement He is currently on AIRVO; counseling done on self proning for 4-6 hours during the day and 4-6 hours at night as tolerated; continue with Decadron, Lovenox, Symbicort and COVID-19 biotin vitamin cocktail; patient remains on Zosyn as recommended by pulmonary service 05/25/2021 Patient is evaluated and discussed with nursing staff; remains on O2 at 60 L with O2 saturation between 90-92% Vital signs are reviewed temperature 98.1, pulse 73, respirations 17 and blood pressure of 149/63 Patient remains on therapy with dexamethasone, Lovenox, vitamins; remains on emp iric IV antibiotic therapy in form of Zosyn as recommended by pulmonary service Prognosis remains guarded 05/26/2021 Patient is seen and evaluated Patient is currently using 100% nonrebreather facemask in addition to high flow oxygen 6 L with an FiO2 of 90%. His breathing is nonlabored. Overnight he is using BiPAP for respiratory support. Is not clear to me if there is any superinfection. Despite a elevated pharmacy.pro-calcitonin level level, my overall suspicion for abacterial infection is quite low in this patient. ID is considering the possibility of adding Baricitinib; given concern about a superimposed bacterial infection and elevated procalcitonin level at 1.59, patient was given IV Zosyn. 05/27/2021 The patient is seen and evaluated and discussed with nursing staff; currently on Airvo at 6 L flow with a 90% FiO2. Pulse ox is around 91%. Vital signs are reviewed and stable with temperature of 97.8, pulse 96, respirations 16 and blood pressure 127/72 Blood glucose remains elevated but gradually improving; d-dimer is trending down and is 0.47 this morning Patient has been taken off the IV Zosyn by infectious disease due to lack of concern of superinfection at this point in time. The patient is going to be started on Baricitinib. Patient remains on Decadron 6 mg IV twice a day. 05/28/2021 Patient is seen and evaluated in room and discussed with nursing staff. Patient experienced difficulty overnight and found BIPAP mask off upon awakening in the morning. Patient had significant respiratory distress with pulse ox trending downward to the mid 70s. Patient is back on the BIPAP and is in no longer in severe distress as he experienced earlier. He is on a regimen of Decadron and Caricitinib. His WBC count remains at 19.8 however he still suffers from a component of lymphopenia. D-dimer is at 1.33, glucose at 219, and LDH is now 923 after re-evaluation after 2 days. Chest x ray which was conducted yesterday shows diffuse bilateral pulmonary infiltrates consistent with COVID pneumonia. Patient is also using a incentive spiromter, on symbicort, and using albuterol as needed. Antibiotics have been discontinued and patietn is afebrile, hemodynamically stable, no major chagnes other than pulse ox drop from this morning. 05/29/2021 Patient is seen and evaluated and discussed with the nursing staff; currently on Airvo with an FI02 of 90%. Pulse ox is around 88-91%. Vital signs are reviewed and stable and afebrile. Patient is hemodynamically stable. Patient states that he is feeling better than yesterday- patient does not seem to be in any type of stress nor is he anxious as he was yesterday. Patient's WBC count today was 23.09. Patient's current medication regimen remains a combination of Decadron and Baricitinib. No major or significant c hanges compared to yesterday. Objective - Vital Signs Vital signs: Vital Signs Temp 97.9 F 05/29/21 10:01 Pulse 87 05/29/21 10:01 Resp 18 05/29/21 10:01 BP 105/71 05/29/21 10:01 Pulse Ox 91 L 05/29/21 10:01 Intake & Output 05/28/21 05/29/21 05/29/21 18:59 06:59 18:59 Output Total 1500 600 Balance -1500 -600 Output: Urine 1500 600 Other: Voiding Method Urinal Urinal - Exam PHYSICAL EXAMINATION: GENERAL: The patient is alert and oriented x3, not in any acute distress. Well developed, well nourished. HEENT: Pupils are round and equally reacting to light. EOMI. No scleral icterus. No conjunctival pallor. Normocephalic, atraumatic. No pharyngeal erythema. No thyromegaly. CARDIOVASCULAR: S1 and S2 present. No murmurs, rubs, or gallops. PULMONARY: Chest is clear to auscultation, no wheezing or crackles. ABDOMEN: Soft, nontender, nondistended, normoactive bowel sounds. No palpable organomegaly. MUSCULOSKELETAL: No joint swelling or deformity. EXTREMITIES: No cyanosis, clubbing, or pedal edema. NEUROLOGICAL: Gross neurological examination did not reveal any focal deficits. SKIN: No rashes. - Labs CBC & Chem 7: 05/29/21 08:07 05/29/21 08:07 Labs: Abnormal Lab Results - Last 24 Hours (Table) 05/28/21 05/28/21 05/28/21 Range/Units 07:53 13:14 16:59 Anion Gap 16.70 H (4.00-12.00) mmol/L BUN 27.2 H (9.0-27.0) mg/dL BUN/Creatinine Ratio 26.41 H (12.00-20.00) Ratio Glucose 117 H (70-110) mg/dL POC Glucose (mg/dL) 219 H 312 H (75-99) mg/dL AST 104 H (14-35) U/L ALT 153 H (10-49) U/L Lactate Dehydrogenase 522 H (120-246) U/L Albumin 3.7 L (3.8-4.9) g/dL Albumin/Globulin Ratio 1.16 L (1.60-3.17) g/dL 05/28/21 05/29/21 05/29/21 Range/Units 20:17 06:57 11:39 Anion Gap (4.00-12.00) mmol/L BUN (9.0-27.0) mg/dL BUN/Creatinine Ratio (12.00-20.00) Ratio Glucose (70-110) mg/dL POC Glucose (mg/dL) 311 H 139 H 181 H (75-99) mg/dL AST (14-35) U/L ALT (10-49) U/L Lactate Dehydrogenase (120-246) U/L Albumin (3.8-4.9) g/dL Albumin/Globulin Ratio (1.60-3.17) g/dL Microbiology - Last 24 Hours (Table) 05/23/21 12:51 Blood Culture - Preliminary Blood No Growth after 120 hours 05/23/21 12:58 Blood Culture - Preliminary Blood No Growth after 120 hours Assessment and Plan Assessment: 1. Acute hypoxic respiratory failure secondary to COVID-19 pneumonia - Patient remains on beta gary therapy, dexamethasone and Lovenox; baricitinib as per pulmonary recommendations; continue with COVID-19 vitamin cocktail 2. Lactic acidosis; possibly related to COVID-19 infection and dehydration; we will continue to trend inflammatory markers and lactic acid levels 3. Hypomagnesemia; resolved 4. Asthma; not in exacerbation; continue with inhaler therapy DVT prophylaxis; SCDs/anticoagulation CODE STATUS; full code
[2021-05-30 07:02] LABS: Glucose,Whole Blood 156 mg/dL (75-99)
[2021-05-30] MEDS: SYMBICORT 160-4.5 MCG INHALER INHALATION SCH ×2 (07:17→19:15)
[2021-05-30] MEDS: ALBUTEROL HFA INHALER INHALATION PRN ×4 (07:17→19:15)
[2021-05-30] MEDS: ASCORBIC ACID 500 MG TAB PO SCH (08:52)
[2021-05-30] MEDS: CHOLECALCIFEROL 25 MCG (1000 IU) TABLET PO SCH (08:52)
[2021-05-30] MEDS: ENOXAPARIN 40 MG/0.4 ML SYRINGE SQ SCH (08:52)
[2021-05-30] MEDS: BARICITINIB 2 MG TABLET PO SCH (08:52)
[2021-05-30] MEDS: DEXAMETHASONE SOD PHOSPHATE 10 MG/ML 1 ML VIAL IV SCH (08:52)
[2021-05-30] MEDS: INSULIN ASPART (NovoLOG) 100 UNIT/ML VIAL SQ SCH ×7 (08:53→21:34)
[2021-05-30] MEDS: ZINC SULFATE 220 MG CAP PO SCH (08:53)
--- NOTE | 2021-05-30 08:55 | XR ---
EXAMINATION TYPE: XR chest 1V portable DATE OF EXAM: 05/30/2021 COMPARISON: 05/29/2021 HISTORY: Cough TECHNIQUE: Single frontal view of the chest is obtained. FINDINGS: Multifocal bilateral infiltrates. No sizable pneumothorax. Tiny right pleural effusion dario pected. Heart size normal. Osseous structures stable. IMPRESSION: Stable bilateral multifocal pneumonia
[2021-05-30 11:36] LABS: Glucose,Whole Blood 219 mg/dL (75-99)
[2021-05-30 11:59] LABS: BUN/Creat Ratio 23.72 Ratio (12.00-20.00); Globulin 2.4 g/dL (1.6-3.3)
[2021-05-30 12:00] LABS: African American GFR (CKD) 122.1 (60.0-200.0); Albumin 3.3 g/dL (3.8-4.9); Albumin/Globulin Ratio 1.35 (1.60-3.17); Anion Gap 12.7 mmol/L (4.00-12.00); Blood Urea Nitrogen 20.8 mg/dL (9.0-27.0); Carbon Dioxide 25.5 mmol/L (21.6-31.8); Non-African American GFR(CKD) 105.4 (60.0-200.0); Potassium 4.6 mmol/L (3.5-5.5); Total Bilirubin 0.5 mg/dL (0.30-1.20); Total Protein 5.7 g/dL (6.2-8.2)
[2021-05-30 12:08] LABS: Basophils # (A) 0.03 X 10*3/uL (0.00-0.10); Basophils % (A) 0.2 %; Eosinophils # (A) 0 X 10*3/uL (0.04-0.35); Eosinophils % (A) 0 %; HCT 45.4 % (39.6-50.0); Lymphocytes # (A) 0.84 X 10*3/uL (0.90-5.00); Lymphocytes % (A) 4.9 %; MCH 28.3 pg (27.0-32.0); MCHC 30.8 g/dL (32.0-37.0); MCV 91.7 fL (80.0-97.0); Mean Platelet Volume 10.7 fL (9.5-12.2); Monocytes # (A) 0.91 X 10*3/uL (0.20-1.00); Monocytes % (A) 5.3 %; Neutrophils # (A) 14.98 X 10*3/uL (1.80-7.70); Neutrophils % (A) 87.7 %; Platelet Count 341 X 10*3/uL (140-440); RBC 4.95 X 10*6/uL (4.40-5.60); RDW 13.5 % (11.5-14.5); WBC 17.08 X 10*3/uL (4.50-10.00)
--- NOTE | 2021-05-30 12:41 | P.PN ---
Subjective Progress Note Date: 05/30/21 05/30/2021, the patient had a follow-up chest x-ray and it showed improvement in the extent of pulmonary infiltration compared to the earlier chest x-ray and there is also improvement in aeration. The patient is on Airvo 60 L an FiO2 of 80%. Overnight is going to a BiPAP at a pressure of 10/5. He is still at the FiO2 of 100% on the BiPAP. White count was down to 17. The patient continues to be on a combination of Decadron and Baricitinib. He d-dimer is 1.6. Rest of the electrolytes are all within normal limits. No fever. No chills. No signs of infection. Tolerating his diet. Sitting up on a chair. Seems to be quite active this point in time. Objective - Vital Signs Vital signs: Vital Signs Temp 98.4 F 05/30/21 10:00 Pulse 72 05/30/21 10:00 Resp 20 05/30/21 10:00 BP 102/66 05/30/21 10:00 Pulse Ox 92 L 05/30/21 10:00 Intake & Output 05/29/21 05/30/21 05/30/21 18:59 06:59 18:59 Intake Total 450 Output Total 1500 1550 Balance -1050 -1550 Intake: Oral 450 Output: Urine 1500 1550 Other: Voiding Method Urinal Urinal # Voids 5 # Bowel Movements 1 - Exam The breathing is nonlabored and the patient is not using accessory muscles of breathing. . The patient is currently on BIPAP 10/5, alternating with Airvo 60 liters with an FiO2 of 80% HEENT examination is grossly unremarkable. Neck supple. Full range of motion. No adenopathy thyromegaly or neck vein distention. Cardiovascular examination reveals regular rhythm rate. S1-S2 normal. No S3 or S4. No discernible murmur noted. Lungs reveal bibasilar crackles. No rhonchi or wheezes. Breath sounds equal. Abdominal exam revealed normal bowel sounds. The abdomen was soft, non-tender, and without masses, organomegaly, or appreciable enlargement of the abdominal aorta. Extremities are intact. No cyanosis clubbing or edema. Examination of the skin revealed no evidence of significant rashes, suspicious appearing nevi or other concerning lesions. Neurologic examination is brief but nonfocal. - Labs CBC & Chem 7: 05/30/21 07:07 05/30/21 07:07 Labs: Abnormal Lab Results - Last 24 Hours (Table) 05/28/21 05/29/21 05/29/21 Range/Units 07:53 08:07 08:07 WBC 23.09 H (4.50-10.00) X 10*3/uL MCHC 31.5 L (32.0-37.0) g/dL Plt Count 471 H (140-440) X 10*3/uL Immature Gran # 0.56 H (0.00-0.04) X 10*3/uL Neutrophils # 20.27 H (1.80-7.70) X 10*3/uL Lymphocytes # (0.90-5.00) X 10*3/uL Eosinophils # (0.04-0.35) X 10*3/uL Basophils # 0.12 H (0.00-0.10) X 10*3/uL D-Dimer (<0.60) mg/L FEU Anion Gap 16.00 H (4.00-12.00) mmol/L BUN/Creatinine Ratio 28.41 H (12.00-20.00) Ratio Glucose 195 H (70-110) mg/dL POC Glucose (mg/dL) (75-99) mg/dL Ferritin 2277.0 H (22.0-322.0) ng/mL AST 49 H (14-35) U/L ALT 129 H (10-49) U/L C-Reactive Protein (0.00-0.80) mg/dL Total Protein (6.2-8.2) g/dL Albumin 3.4 L (3.8-4.9) g/dL Albumin/Globulin Ratio 1.24 L (1.60-3.17) g/dL 05/29/21 05/29/21 05/30/21 Range/Units 16:46 20:06 06:48 WBC (4.50-10.00) X 10*3/uL MCHC (32.0-37.0) g/dL Plt Count (140-440) X 10*3/uL Immature Gran # (0.00-0.04) X 10*3/uL Neutrophils # (1.80-7.70) X 10*3/uL Lymphocytes # (0.90-5.00) X 10*3/uL Eosinophils # (0.04-0.35) X 10*3/uL Basophils # (0.00-0.10) X 10*3/uL D-Dimer (<0.60) mg/L FEU Anion Gap (4.00-12.00) mmol/L BUN/Creatinine Ratio (12.00-20.00) Ratio Glucose (70-110) mg/dL POC Glucose (mg/dL) 221 H 308 H 156 H (75-99) mg/dL Ferritin (22.0-322.0) ng/mL AST (14-35) U/L ALT (10-49) U/L C-Reactive Protein (0.00-0.80) mg/dL Total Protein (6.2-8.2) g/dL Albumin (3.8-4.9) g/dL Albumin/Globulin Ratio (1.60-3.17) g/dL 05/30/21 05/30/21 05/30/21 Range/Units 07:07 07:07 07:07 WBC 17.08 H (4.50-10.00) X 10*3/uL MCHC 30.8 L (32.0-37.0) g/dL Plt Count (140-440) X 10*3/uL Immature Gran # 0.32 H (0.00-0.04) X 10*3/uL Neutrophils # 14.98 H (1.80-7.70) X 10*3/uL Lymphocytes # 0.84 L (0.90-5.00) X 10*3/uL Eosinophils # 0 L (0.04-0.35) X 10*3/uL Basophils # (0.00-0.10) X 10*3/uL D-Dimer 1.61 H (<0.60) mg/L FEU Anion Gap 12.70 H (4.00-12.00) mmol/L BUN/Creatinine Ratio 23.72 H (12.00-20.00) Ratio Glucose 146 H (70-110) mg/dL POC Glucose (mg/dL) (75-99) mg/dL Ferritin (22.0-322.0) ng/mL AST (14-35) U/L ALT 114 H (10-49) U/L C-Reactive Protein 5.00 H (0.00-0.80) mg/dL Total Protein 5.7 L (6.2-8.2) g/dL Albumin 3.3 L (3.8-4.9) g/dL Albumin/Globulin Ratio 1.35 L (1.60-3.17) g/dL 05/30/21 Range/Units 11:33 WBC (4.50-10.00) X 10*3/uL MCHC (32.0-37.0) g/dL Plt Count (140-440) X 10*3/uL Immature Gran # (0.00-0.04) X 10*3/uL Neutrophils # (1.80-7.70) X 10*3/uL Lymphocytes # (0.90-5.00) X 10*3/uL Eosinophils # (0.04-0.35) X 10*3/uL Basophils # (0.00-0.10) X 10*3/uL D-Dimer (<0.60) mg/L FEU Anion Gap (4.00-12.00) mmol/L BUN/Creatinine Ratio (12.00-20.00) Ratio Glucose (70-110) mg/dL POC Glucose (mg/dL) 219 H (75-99) mg/dL Ferritin (22.0-322.0) ng/mL AST (14-35) U/L ALT (10-49) U/L C-Reactive Protein (0.00-0.80) mg/dL Total Protein (6.2-8.2) g/dL Albumin (3.8-4.9) g/dL Albumin/Globulin Ratio (1.60-3.17) g/dL Microbiology - Last 24 Hours (Table) 05/23/21 12:51 Blood Culture - Final Blood No Growth after 144 hours 05/23/21 12:58 Blood Culture - Final Blood No Growth after 144 hours Assessment and Plan Plan: 1 Acute hypoxemic respiratory failure secondary to coronavirus associated pneumonia.the patient is currently using 100% nonrebreather facemask in addition to high flow oxygen 60 L with an FiO2 of 80%. His breathing is nonlabored. The patient is on Baricitinib. The patient is on Decadron. The patient is stable for now alternating between Airvo high flow at 60 L and BiPAP. 2 History of chronic bronchial asthma. 3 Previous history of tobacco use. 4 Mild lactic acidosis. 5 Elevated inflammatory marker secondary to coronavirus infection. Plan: is looking slightly better with improved on today's evaluation. repeat inflammatory markers for tomorrow Monitor the oxygenation Continue Decadron, the white cell count to be monitoredvisit improving and the patient is taken Decadron 6 mg IV on a daily basis Continue Baricitinib The patient's x-ray in the morningwas noted and there is some interval improvement continue anticoagulation with Lovenox 40 mg subcu every 24 hours. continue the rest of the supportive care We'll continue to follow.
[2021-05-30 17:04] LABS: Glucose,Whole Blood 396 mg/dL (75-99)
[2021-05-30 20:22] LABS: Glucose,Whole Blood 317 mg/dL (75-99)
[2021-05-30] MEDS: INSULIN DETEMIR (LEVEMIR) 100 UNIT/ML SYR SQ SCH (21:34)
--- NOTE | 2021-05-30 22:44 | PN ---
PROGRESS NOTE DATE OF SERVICE: 05/30/2021 REASON FOR FOLLOWUP: COVID-19 pneumonia. INTERVAL HISTORY: The patient is afebrile. The patient is breathing slightly comfortably today. The patient still remains to be on AIRVO high-flow oxygen. Patient denies having any chest pain or worsening cough. No vomiting. No abdominal pain and no diarrhea. PHYSICAL EXAMINATION: Blood pressure 131/76, pulse of 92, temperature 97.7. He is 98% on 70% FiO2. General description is a middle-aged male up in the chair in no distress. RESPIRATORY SYSTEM: Unlabored breathing. Decreased intensity of breath sounds. No wheeze. HEART: S1, S2. Regular rate and rhythm. ABDOMEN: Soft. No tenderness. LABS: Hemoglobin is 14, white count of 17, BUN of 20, creatinine 0.9. DIAGNOSTIC IMPRESSION AND PLAN: Patient with acute respiratory failure secondary to the COVID-19 pneumonia in this patient who has minimal clinical improvement. X-ray finding has been stable. White count is showing a downward trend. Patient to continue with baricitinib, dexamethasone, Lovenox, zinc, ascorbic acid and monitor his clinical course closely. MMODL / IJN: [id number] /
--- NOTE | 2021-05-30 23:09 | P.PN ---
Subjective Progress Note Date: 05/30/21 Principal diagnosis: Acute hypoxemic respiratory failure COVID-19 pneumonia Lactic acidosis 41-year-old male with a known history of asthma and previous history of smoking presents to ER with complaints of worsening shortness of breath, cough and fever. Patient has been sick for the past 1 week. patient was febrile with T- max of 104.1 on admission and was tachycardic and tachypneic with pulse ox 85% on room air on admission. Patient was tested positive for COVID-19 infection in May 13, 2021. Patient was symptomatic for about 2 days prior to his test. Patient was taking [id number] medications and breathing status is not improving. Presented to ER due to worsening symptoms. On admission patient was hypoxic. Chest x-ray showed interval marked worsening appearance of the chest with bilateral multifocal areas of infiltrate suggestive of pneumonia. EKG showed sinus tachycardia. 05/24/2021 Patient is seen and evaluated and discussed with nursing staff; continues to require oxygen at 60 L with at bedtime and see with O2 saturation maintaining between 89-90% Vital signs are stable with temperature of 97.5, pulse 67, respiration 18 and blood pressure 163/67; O2 saturation 93% Lab review shows WBC 13.9, hemoglobin 16.4, platelet count of 333, BUN/creatinine of 32/1 Repeat chest x-ray revealed MILD improvement He is currently on AIRVO; counseling done on self proning for 4-6 hours during the day and 4-6 hours at night as tolerated; continue with Decadron, Lovenox, Symbicort and COVID-19 biotin vitamin cocktail; patient remains on Zosyn as recommended by pulmonary service 05/25/2021 Patient is evaluated and discussed with nursing staff; remains on O2 at 60 L with O2 saturation between 90-92% Vital signs are reviewed temperature 98.1, pulse 73, respirations 17 and blood pressure of 149/63 Patient remains on therapy with dexamethasone, Lovenox, vitamins; remains on emp iric IV antibiotic therapy in form of Zosyn as recommended by pulmonary service Prognosis remains guarded 05/26/2021 Patient is seen and evaluated Patient is currently using 100% nonrebreather facemask in addition to high flow oxygen 6 L with an FiO2 of 90%. His breathing is nonlabored. Overnight he is using BiPAP for respiratory support. Is not clear to me if there is any superinfection. Despite a elevated pharmacy.pro-calcitonin level level, my overall suspicion for abacterial infection is quite low in this patient. ID is considering the possibility of adding Baricitinib; given concern about a superimposed bacterial infection and elevated procalcitonin level at 1.59, patient was given IV Zosyn. 05/27/2021 The patient is seen and evaluated and discussed with nursing staff; currently on Airvo at 6 L flow with a 90% FiO2. Pulse ox is around 91%. Vital signs are reviewed and stable with temperature of 97.8, pulse 96, respirations 16 and blood pressure 127/72 Blood glucose remains elevated but gradually improving; d-dimer is trending down and is 0.47 this morning Patient has been taken off the IV Zosyn by infectious disease due to lack of concern of superinfection at this point in time. The patient is going to be started on Baricitinib. Patient remains on Decadron 6 mg IV twice a day. 05/28/2021 Patient is seen and evaluated in room and discussed with nursing staff. Patient experienced difficulty overnight and found BIPAP mask off upon awakening in the morning. Patient had significant respiratory distress with pulse ox trending downward to the mid 70s. Patient is back on the BIPAP and is in no longer in severe distress as he experienced earlier. He is on a regimen of Decadron and Caricitinib. His WBC count remains at 19.8 however he still suffers from a component of lymphopenia. D-dimer is at 1.33, glucose at 219, and LDH is now 923 after re-evaluation after 2 days. Chest x ray which was conducted yesterday shows diffuse bilateral pulmonary infiltrates consistent with COVID pneumonia. Patient is also using a incentive spiromter, on symbicort, and using albuterol as needed. Antibiotics have been discontinued and patietn is afebrile, hemodynamically stable, no major chagnes other than pulse ox drop from this morning. 05/29/2021 Patient is seen and evaluated and discussed with the nursing staff; currently on Airvo with an FI02 of 90%. Pulse ox is around 88-91%. Vital signs are reviewed and stable and afebrile. Patient is hemodynamically stable. Patient states that he is feeling better than yesterday- patient does not seem to be in any type of stress nor is he anxious as he was yesterday. Patient's WBC count today was 23.09. Patient's current medication regimen remains a combination of Decadron and Baricitinib. No major or significant c hanges compared to yesterday. 05/30/2021 Patient is seen and evaluated and discussed with nursing staff. Patient had a follow up chest x ray which is showing improvement in the pulmonary infiltrations as compared to the chest x ray obtained previously. There is also improvement on aeration. Patient is now on Airvo with an FIO2 of 80%. Overnight patient is going to a BIPAP at a pressure of 10/5 and continues at the FiO2 of 100% on the BIPAP. WBC count has trended down from 23.09 to 17 today. Patient remains on current medication regimen of Decadron and Baricitinib. Patient's D- Dimer is 1.6. Rest of electrolytes are all within normal limits with no fever, chills, or signs of any infection. Patient is tolerating his diet and seems to be much more active. No further recommendations, continue with current care. No major significant changes or differences compared to yesterday. Objective - Vital Signs Vital signs: Vital Signs Temp 98.4 F 05/30/21 10:00 Pulse 72 05/30/21 10:00 Resp 20 05/30/21 10:00 BP 102/66 05/30/21 10:00 Pulse Ox 92 L 05/30/21 10:00 Intake & Output 05/29/21 05/30/21 05/30/21 18:59 06:59 18:59 Intake Total 450 Output Total 1500 1550 Balance -1050 -1550 Intake: Oral 450 Output: Urine 1500 1550 Other: Voiding Method Urinal Urinal # Voids 5 # Bowel Movements 1 - Exam PHYSICAL EXAMINATION: GENERAL: The patient is alert and oriented x3, not in any acute distress. Well developed, well nourished. HEENT: Pupils are round and equally reacting to light. EOMI. No scleral icterus. No conjunctival pallor. Normocephalic, atraumatic. No pharyngeal erythema. No thyromegaly. CARDIOVASCULAR: S1 and S2 present. No murmurs, rubs, or gallops. PULMONARY: Chest is clear to auscultation, no wheezing or crackles. ABDOMEN: Soft, nontender, nondistended, normoactive bowel sounds. No palpable organomegaly. MUSCULOSKELETAL: No joint swelling or deformity. EXTREMITIES: No cyanosis, clubbing, or pedal edema. NEUROLOGICAL: Gross neurological examination did not reveal any focal deficits. SKIN: No rashes. - Labs CBC & Chem 7: 05/30/21 07:07 05/30/21 07:07 Labs: Abnormal Lab Results - Last 24 Hours (Table) 05/28/21 05/29/21 05/29/21 Range/Units 07:53 08:07 08:07 WBC (4.50-10.00) X 10*3/uL MCHC (32.0-37.0) g/dL Immature Gran # 0.56 H (0.00-0.04) X 10*3/uL Neutrophils # 20.27 H (1.80-7.70) X 10*3/uL Lymphocytes # (0.90-5.00) X 10*3/uL Eosinophils # (0.04-0.35) X 10*3/uL Basophils # 0.12 H (0.00-0.10) X 10*3/uL D-Dimer (<0.60) mg/L FEU Anion Gap 16.00 H (4.00-12.00) mmol/L BUN/Creatinine Ratio 28.41 H (12.00-20.00) Ratio Glucose 195 H (70-110) mg/dL POC Glucose (mg/dL) (75-99) mg/dL Ferritin 2277.0 H (22.0-322.0) ng/mL AST 49 H (14-35) U/L ALT 129 H (10-49) U/L C-Reactive Protein (0.00-0.80) mg/dL Total Protein (6.2-8.2) g/dL Albumin 3.4 L (3.8-4.9) g/dL Albumin/Globulin Ratio 1.24 L (1.60-3.17) g/dL 05/29/21 05/29/21 05/30/21 Range/Units 16:46 20:06 06:48 WBC (4.50-10.00) X 10*3/uL MCHC (32.0-37.0) g/dL Immature Gran # (0.00-0.04) X 10*3/uL Neutrophils # (1.80-7.70) X 10*3/uL Lymphocytes # (0.90-5.00) X 10*3/uL Eosinophils # (0.04-0.35) X 10*3/uL Basophils # (0.00-0.10) X 10*3/uL D-Dimer (<0.60) mg/L FEU Anion Gap (4.00-12.00) mmol/L BUN/Creatinine Ratio (12.00-20.00) Ratio Glucose (70-110) mg/dL POC Glucose (mg/dL) 221 H 308 H 156 H (75-99) mg/dL Ferritin (22.0-322.0) ng/mL AST (14-35) U/L ALT (10-49) U/L C-Reactive Protein (0.00-0.80) mg/dL Total Protein (6.2-8.2) g/dL Albumin (3.8-4.9) g/dL Albumin/Globulin Ratio (1.60-3.17) g/dL 05/30/21 05/30/21 05/30/21 Range/Units 07:07 07:07 07:07 WBC 17.08 H (4.50-10.00) X 10*3/uL MCHC 30.8 L (32.0-37.0) g/dL Immature Gran # 0.32 H (0.00-0.04) X 10*3/uL Neutrophils # 14.98 H (1.80-7.70) X 10*3/uL Lymphocytes # 0.84 L (0.90-5.00) X 10*3/uL Eosinophils # 0 L (0.04-0.35) X 10*3/uL Basophils # (0.00-0.10) X 10*3/uL D-Dimer 1.61 H (<0.60) mg/L FEU Anion Gap 12.70 H (4.00-12.00) mmol/L BUN/Creatinine Ratio 23.72 H (12.00-20.00) Ratio Glucose 146 H (70-110) mg/dL POC Glucose (mg/dL) (75-99) mg/dL Ferritin (22.0-322.0) ng/mL AST (14-35) U/L ALT 114 H (10-49) U/L C-Reactive Protein 5.00 H (0.00-0.80) mg/dL Total Protein 5.7 L (6.2-8.2) g/dL Albumin 3.3 L (3.8-4.9) g/dL Albumin/Globulin Ratio 1.35 L (1.60-3.17) g/dL 05/30/21 Range/Units 11:33 WBC (4.50-10.00) X 10*3/uL MCHC (32.0-37.0) g/dL Immature Gran # (0.00-0.04) X 10*3/uL Neutrophils # (1.80-7.70) X 10*3/uL Lymphocytes # (0.90-5.00) X 10*3/uL Eosinophils # (0.04-0.35) X 10*3/uL Basophils # (0.00-0.10) X 10*3/uL D-Dimer (<0.60) mg/L FEU Anion Gap (4.00-12.00) mmol/L BUN/Creatinine Ratio (12.00-20.00) Ratio Glucose (70-110) mg/dL POC Glucose (mg/dL) 219 H (75-99) mg/dL Ferritin (22.0-322.0) ng/mL AST (14-35) U/L ALT (10-49) U/L C-Reactive Protein (0.00-0.80) mg/dL Total Protein (6.2-8.2) g/dL Albumin (3.8-4.9) g/dL Albumin/Globulin Ratio (1.60-3.17) g/dL Microbiology - Last 24 Hours (Table) 05/23/21 12:51 Blood Culture - Final Blood No Growth after 144 hours 05/23/21 12:58 Blood Culture - Final Blood No Growth after 144 hours Assessment and Plan Assessment: 1. Acute hypoxic respiratory failure secondary to COVID-19 pneumonia - Patient remains on beta gary therapy, dexamethasone and Lovenox; baricitinib as per pulmonary recommendations; continue with COVID-19 vitamin cocktail 2. Lactic acidosis; possibly related to COVID-19 infection and dehydration; we will continue to trend inflammatory markers and lactic acid levels 3. Hypomagnesemia; resolved 4. Asthma; not in exacerbation; continue with inhaler therapy DVT prophylaxis; SCDs/anticoagulation CODE STATUS; full code
[2021-05-31 07:09] LABS: Glucose,Whole Blood 110 mg/dL (75-99)
[2021-05-31 07:20] LABS: Basophils # (A) 0.1 k/uL (0-0.2); Basophils % (A) 0 %; Eosinophils # (A) 0.2 k/uL (0-0.7); Eosinophils % (A) 1 %; HCT 45.4 % (39.0-53.0); HGB 14.3 gm/dL (13.0-17.5); Lymphocytes # (A) 0.9 k/uL (1.0-4.8); Lymphocytes % (A) 5 %; MCH 28.9 pg (25.0-35.0); MCHC 31.5 g/dL (31.0-37.0); MCV 91.5 fL (80.0-100.0); Mean Platelet Volume 8.1; Monocytes % (A) 5 %; Neutrophils # (A) 15.4 k/uL (1.3-7.7); Neutrophils % (A) 87 %; Platelet Count 313 k/uL (150-450); RBC 4.96 m/uL (4.30-5.90); RDW 13.3 % (11.5-15.5); WBC 17.8 k/uL (3.8-10.6)
[2021-05-31 07:29] LABS: ALT 112 U/L (4-49); AST 43 U/L (17-59); African American GFR (CKD) >90 (>60 ml/min/1.73 sqM); Albumin 2.8 g/dL (3.5-5.0); Albumin/Globulin Ratio 0.9; Alkaline Phosphatase 60 U/L (38-126); Anion Gap 5 mmol/L; Blood Urea Nitrogen 25 mg/dL (9-20); Carbon Dioxide 31 mmol/L (22-30); Chloride 103 mmol/L (98-107); Glucose 121 mg/dL (74-99); Non-African American GFR(CKD) >90 (>60 ml/min/1.73 sqM); Potassium 4.4 mmol/L (3.5-5.1); Sodium 139 mmol/L (137-145); Total Bilirubin 0.6 mg/dL (0.2-1.3); Total Protein 5.8 g/dL (6.3-8.2)
[2021-05-31] MEDS: ALBUTEROL HFA INHALER INHALATION PRN ×3 (07:34→20:26)
[2021-05-31] MEDS: SYMBICORT 160-4.5 MCG INHALER INHALATION SCH ×2 (07:34→20:25)
[2021-05-31] MEDS: INSULIN ASPART (NovoLOG) 100 UNIT/ML VIAL SQ SCH ×7 (07:48→21:36)
[2021-05-31] MEDS: CHOLECALCIFEROL 25 MCG (1000 IU) TABLET PO SCH (08:26)
[2021-05-31] MEDS: ASCORBIC ACID 500 MG TAB PO SCH (08:26)
[2021-05-31] MEDS: BARICITINIB 2 MG TABLET PO SCH (08:26)
[2021-05-31] MEDS: DEXAMETHASONE SOD PHOSPHATE 10 MG/ML 1 ML VIAL IV SCH (08:26)
[2021-05-31] MEDS: ZINC SULFATE 220 MG CAP PO SCH (08:26)
[2021-05-31] MEDS: ENOXAPARIN 40 MG/0.4 ML SYRINGE SQ SCH (08:27)
[2021-05-31 12:22] LABS: Glucose,Whole Blood 178 mg/dL (75-99)
--- NOTE | 2021-05-31 12:22 | P.PN ---
Subjective Progress Note Date: 05/31/21 05/28/2021 the patient is sitting up on a recliner, he is using high flow oxygen, Airvo at 60 L and FiO2 is down to 70%. Current pulse ox is 93%. He remains on Decadron. He remains on Baricitinib. He remains on anticoagulation with Lovenox. He has no specific complaints. Unfortunately, his progression is been quite slow and we were able to cut down his FiO2 slowly over this past week. In terms of his labs, his white cell count is at 17.8 and she is comparable to yesterday with a hemoglobin of 14.3, creatinine is at 0.8, sodium is at 139, inflammatory markers have dropped considerably and his LDH level was down to 360 from yesterday. The patient has a good appetite. He has no fever. No chills. He is still in good spirits. He does activities and he desaturates and he recovers faster than the usual in terms of his pulse ox. Objective - Vital Signs Vital signs: Vital Signs Temp 97.3 F L 05/31/21 10:00 Pulse 77 05/31/21 10:00 Resp 22 05/31/21 10:00 BP 107/65 05/31/21 10:00 Pulse Ox 91 L 05/31/21 10:00 Intake & Output 05/30/21 05/31/21 05/31/21 18:59 06:59 18:59 Output Total 2500 1900 Balance -2500 -1900 Output: Urine 2500 1900 Other: Voiding Method Urinal - Exam The breathing is nonlabored and the patient is not using accessory muscles of breathing. . The patient is currently on Airvo 60 liters with an FiO2 of 70% HEENT examination is grossly unremarkable. Neck supple. Full range of motion. No adenopathy thyromegaly or neck vein distention. Cardiovascular examination reveals regular rhythm rate. S1-S2 normal. No S3 or S4. No discernible murmur noted. Lungs reveal bibasilar crackles. No rhonchi or wheezes. Breath sounds equal. Abdominal exam revealed normal bowel sounds. The abdomen was soft, non-tender, and without masses, organomegaly, or appreciable enlargement of the abdominal aorta. Extremities are intact. No cyanosis clubbing or edema. Examination of the skin revealed no evidence of significant rashes, suspicious appearing nevi or other concerning lesions. Neurologic examination is brief but nonfocal. - Labs CBC & Chem 7: 05/31/21 06:53 05/31/21 06:53 Labs: Abnormal Lab Results - Last 24 Hours (Table) 05/30/21 05/30/21 05/30/21 Range/Units 07:07 16:40 20:20 WBC (3.8-10.6) k/uL Neutrophils # (1.3-7.7) k/uL Lymphocytes # (1.0-4.8) k/uL Carbon Dioxide (22-30) mmol/L BUN (9-20) mg/dL Glucose (74-99) mg/dL POC Glucose (mg/dL) 396 H 317 H (75-99) mg/dL ALT (4-49) U/L Lactate Dehydrogenase 316 H (120-246) U/L Total Protein (6.3-8.2) g/dL Albumin (3.5-5.0) g/dL 05/31/21 05/31/21 05/31/21 Range/Units 06:53 06:53 06:55 WBC 17.8 H (3.8-10.6) k/uL Neutrophils # 15.4 H (1.3-7.7) k/uL Lymphocytes # 0.9 L (1.0-4.8) k/uL Carbon Dioxide 31 H (22-30) mmol/L BUN 25 H (9-20) mg/dL Glucose 121 H (74-99) mg/dL POC Glucose (mg/dL) 110 H (75-99) mg/dL ALT 112 H (4-49) U/L Lactate Dehydrogenase (120-246) U/L Total Protein 5.8 L (6.3-8.2) g/dL Albumin 2.8 L (3.5-5.0) g/dL Assessment and Plan Plan: 1 Acute hypoxemic respiratory failure secondary to coronavirus associated pneumonia.the patient is currently high flow oxygen 60 L with an FiO2 of 70%. His breathing is nonlabored. The patient is on Baricitinib. The patient is on Decadron. The patient is stable , and he has not used the BiPAP over the past 44-48 hours 2 History of chronic bronchial asthma. 3 Previous history of tobacco use. 4 Mild lactic acidosis. 5 Elevated inflammatory marker secondary to coronavirus infection. Plan: Drop the FiO2 to 60% and keep the floor at 60 L repeat inflammatory markers have improved and the LDH has normalized Monitor the oxygenation Continue Decadron, Decadron 6 mg IV on a daily basis Continue Baricitinib The patient's x-ray in the morning was noted and there is some interval improvement and this was obtained yesterday continue anticoagulation with Lovenox 40 mg subcu every 24 hours. continue the rest of the supportive care We'll continue to follow.
[2021-05-31 16:52] LABS: Glucose,Whole Blood 377 mg/dL (75-99)
[2021-05-31 20:52] LABS: Glucose,Whole Blood 308 mg/dL (75-99)
[2021-05-31] MEDS: INSULIN DETEMIR (LEVEMIR) 100 UNIT/ML SYR SQ SCH (21:36)
--- NOTE | 2021-05-31 22:11 | PN ---
PROGRESS NOTE DATE OF SERVICE: 05/31/2021 REASON FOR FOLLOWUP: COVID-19 pneumonia. INTERVAL HISTORY: The patient denies having chest pain. He is breathing slightly comfortably. No nausea, no vomiting, no abdominal pain or diarrhea. PHYSICAL EXAMINATION: Blood pressure is 135/66, pulse of 89, temperature 97.7. He is 91% on 70% FiO2. General description is a middle-aged male up in the chair in no distress. RESPIRATORY SYSTEM: Unlabored breathing. Decreased intensity of breath sounds. No wheeze. HEART: S1, S2. Regular rate and rhythm. ABDOMEN: Soft. No tenderness. LABS: Hemoglobin is 14.3, white count 17.8, creatinine 0.80. DIAGNOSTIC IMPRESSION AND PLAN: Patient with acute COVID-19 pneumonia in this patient who has minimal clinical improvement. The patient is currently on baricitinib, dexamethasone, Lovenox, zinc and ascorbic acid; to continue along with respiratory support. Monitor clinical course closely. MMODL / KRISTENN: [id number] /
[2021-06-01 07:34] LABS: Glucose,Whole Blood 112 mg/dL (75-99)
[2021-06-01] MEDS: INSULIN ASPART (NovoLOG) 100 UNIT/ML VIAL SQ SCH ×7 (07:35→20:22)
[2021-06-01] MEDS: ALBUTEROL HFA INHALER INHALATION PRN ×4 (08:05→21:13)
[2021-06-01] MEDS: SYMBICORT 160-4.5 MCG INHALER INHALATION SCH ×2 (08:05→21:13)
[2021-06-01] MEDS: CHOLECALCIFEROL 25 MCG (1000 IU) TABLET PO SCH (08:18)
[2021-06-01] MEDS: ZINC SULFATE 220 MG CAP PO SCH (08:18)
[2021-06-01] MEDS: DEXAMETHASONE SOD PHOSPHATE 10 MG/ML 1 ML VIAL IV SCH (08:18)
[2021-06-01] MEDS: ASCORBIC ACID 500 MG TAB PO SCH (08:18)
[2021-06-01] MEDS: BARICITINIB 2 MG TABLET PO SCH (08:18)
[2021-06-01] MEDS: ENOXAPARIN 40 MG/0.4 ML SYRINGE SQ SCH (08:19)
[2021-06-01 09:19] LABS: Basophils % (A) 0 %; Eosinophils # (A) 0.2 k/uL (0-0.7); Eosinophils % (A) 1 %; HCT 45.9 % (39.0-53.0); HGB 15.4 gm/dL (13.0-17.5); Lymphocytes # (A) 1.3 k/uL (1.0-4.8); Lymphocytes % (A) 7 %; MCH 29.8 pg (25.0-35.0); MCHC 33.6 g/dL (31.0-37.0); MCV 88.7 fL (80.0-100.0); Mean Platelet Volume 8.3; Monocytes # (A) 1.1 k/uL (0-1.0); Monocytes % (A) 6 %; Neutrophils # (A) 16.5 k/uL (1.3-7.7); Neutrophils % (A) 85 %; Platelet Count 350 k/uL (150-450); RBC 5.17 m/uL (4.30-5.90); RDW 13.5 % (11.5-15.5); WBC 19.4 k/uL (3.8-10.6)
[2021-06-01 09:28] LABS: ALT 107 U/L (4-49); AST 37 U/L (17-59); African American GFR (CKD) >90 (>60 ml/min/1.73 sqM); Alkaline Phosphatase 72 U/L (38-126); Anion Gap 7 mmol/L; Blood Urea Nitrogen 26 mg/dL (9-20); Carbon Dioxide 29 mmol/L (22-30); Chloride 100 mmol/L (98-107); Globulin 2.9 g/dL; Glucose 250 mg/dL (74-99); Non-African American GFR(CKD) >90 (>60 ml/min/1.73 sqM); Potassium 4.1 mmol/L (3.5-5.1); Sodium 136 mmol/L (137-145); Total Bilirubin 0.7 mg/dL (0.2-1.3); Total Protein 5.9 g/dL (6.3-8.2)
--- NOTE | 2021-06-01 11:26 | P.PN ---
Subjective Progress Note Date: 06/01/21 06/01/2021, the patient is doing well. The patient has been weaned down on his Airvo down to 50 L with an FiO2 of 70%. His pulse ox is currently 93%. Remains on Decadron. Remains on Baricitinib. He remains on Lovenox for anticoagulation. No new complaints. He is in good spirits. Occasional dry cough. No significant sputum production. No fever or chills. He has a good appetite. No nausea or vomiting or diarrhea or abdominal pain. His LDH level was down trending it was down significantly. For now, the patient is having a gradually wean on his oxygen source. We are waiting to drop the FiO2 further. Objective - Vital Signs Vital signs: Vital Signs Temp 97.4 F L 06/01/21 10:00 Pulse 76 06/01/21 10:00 Resp 20 06/01/21 10:00 BP 129/77 06/01/21 10:00 Pulse Ox 93 L 06/01/21 10:00 Intake & Output 05/31/21 06/01/21 06/01/21 18:59 06:59 18:59 Intake Total 200 Output Total 1100 Balance -1100 200 Intake: Oral 200 Output: Urine 1100 Other: Voiding Method Urinal Urinal Urinal # Voids 1,500 1 # Bowel Movements 1 1 - Exam The breathing is nonlabored and the patient is not using accessory muscles of breathing. . The patient is currently on Airvo 50 liters with an FiO2 of 70% HEENT examination is grossly unremarkable. Neck supple. Full range of motion. No adenopathy thyromegaly or neck vein distention. Cardiovascular examination reveals regular rhythm rate. S1-S2 normal. No S3 or S4. No discernible murmur noted. Lungs reveal bibasilar crackles. No rhonchi or wheezes. Breath sounds equal. Abdominal exam revealed normal bowel sounds. The abdomen was soft, non-tender, and without masses, organomegaly, or appreciable enlargement of the abdominal aorta. Extremities are intact. No cyanosis clubbing or edema. Examination of the skin revealed no evidence of significant rashes, suspicious appearing nevi or other concerning lesions. Neurologic examination is brief but nonfocal. - Labs CBC & Chem 7: 06/01/21 09:02 06/01/21 09:02 Labs: Abnormal Lab Results - Last 24 Hours (Table) 05/31/21 05/31/21 05/31/21 Range/Units 11:53 16:49 20:51 WBC (3.8-10.6) k/uL Neutrophils # (1.3-7.7) k/uL Monocytes # (0-1.0) k/uL Sodium (137-145) mmol/L BUN (9-20) mg/dL Glucose (74-99) mg/dL POC Glucose (mg/dL) 178 H 377 H 308 H (75-99) mg/dL ALT (4-49) U/L Total Protein (6.3-8.2) g/dL Albumin (3.5-5.0) g/dL 06/01/21 06/01/21 06/01/21 Range/Units 07:33 09:02 09:02 WBC 19.4 H (3.8-10.6) k/uL Neutrophils # 16.5 H (1.3-7.7) k/uL Monocytes # 1.1 H (0-1.0) k/uL Sodium 136 L (137-145) mmol/L BUN 26 H (9-20) mg/dL Glucose 250 H (74-99) mg/dL POC Glucose (mg/dL) 112 H (75-99) mg/dL ALT 107 H (4-49) U/L Total Protein 5.9 L (6.3-8.2) g/dL Albumin 3.0 L (3.5-5.0) g/dL Assessment and Plan Plan: 1 Acute hypoxemic respiratory failure secondary to coronavirus associated pneumonia.the patient is currently high flow oxygen 50 L with an FiO2 of 70%. His breathing is nonlabored. The patient is on Baricitinib. The patient is on Decadron. The patient is stable 2 History of chronic bronchial asthma. 3 Previous history of tobacco use. 4 Mild lactic acidosis. 5 Elevated inflammatory marker secondary to coronavirus infection. Plan: Drop the FiO2 to 60% and keep the flow at 50 L repeat inflammatory markers have improved and the LDH has normalized Monitor the oxygenation Continue Decadron, Decadron 6 mg IV on a daily basis Continue Baricitinib The patient's x-ray from 05/31/2021 was noted and there is some interval improvement continue anticoagulation with Lovenox 40 mg subcu every 24 hours. continue the rest of the supportive care We'll continue to follow.
[2021-06-01 12:07] LABS: Glucose,Whole Blood 206 mg/dL (75-99)
[2021-06-01 17:04] LABS: Glucose,Whole Blood 376 mg/dL (75-99)
[2021-06-01 19:59] LABS: Glucose,Whole Blood 289 mg/dL (75-99)
[2021-06-01] MEDS: INSULIN DETEMIR (LEVEMIR) 100 UNIT/ML SYR SQ SCH (20:23)
--- NOTE | 2021-06-01 22:23 | PN ---
PROGRESS NOTE DATE OF SERVICE: 06/01/2021 REASON FOR FOLLOWUP: COVID-19 pneumonia. INTERVAL HISTORY: The patient is afebrile. The patient is breathing more comfortably. The patient denies having any chest pain or worsening cough. No nausea, no vomiting. No abdominal pain or diarrhea. PHYSICAL EXAMINATION: Blood pressure 115/65, pulse of 89, temperature 97.5. He is 92% on 60% FiO2. General description is a middle-aged male up in the bed in no distress. RESPIRATORY SYSTEM: Unlabored breathing. Decreased intensity of breath sounds. No wheeze. HEART: S1, S2. Regular rate and rhythm. ABDOMEN: Soft. No tenderness. LABS: Hemoglobin is 15.4, white count 19.4. Creatinine 0.76. DIAGNOSTIC IMPRESSION AND PLAN: Patient with acute respiratory failure secondary to COVID-19 pneumonia in this patient who is slowly clinically responding to currently treatment protocol, including baricitinib, decadron, zinc, ascorbic acid and Lovenox. Monitor clinical course closely. MMODL / IJN: [id number] /
--- NOTE | 2021-06-01 22:47 | P.PN ---
Subjective Progress Note Date: 05/31/21 Principal diagnosis: Acute hypoxemic respiratory failure COVID-19 pneumonia Lactic acidosis 41-year-old male with a known history of asthma and previous history of smoking presents to ER with complaints of worsening shortness of breath, cough and fever. Patient has been sick for the past 1 week. patient was febrile with T- max of 104.1 on admission and was tachycardic and tachypneic with pulse ox 85% on room air on admission. Patient was tested positive for COVID-19 infection in May 13, 2021. Patient was symptomatic for about 2 days prior to his test. Patient was taking [id number] medications and breathing status is not improving. Presented to ER due to worsening symptoms. On admission patient was hypoxic. Chest x-ray showed interval marked worsening appearance of the chest with bilateral multifocal areas of infiltrate suggestive of pneumonia. EKG showed sinus tachycardia. 05/24/2021 Patient is seen and evaluated and discussed with nursing staff; continues to require oxygen at 60 L with at bedtime and see with O2 saturation maintaining between 89-90% Vital signs are stable with temperature of 97.5, pulse 67, respiration 18 and blood pressure 163/67; O2 saturation 93% Lab review shows WBC 13.9, hemoglobin 16.4, platelet count of 333, BUN/creatinine of 32/1 Repeat chest x-ray revealed MILD improvement He is currently on AIRVO; counseling done on self proning for 4-6 hours during the day and 4-6 hours at night as tolerated; continue with Decadron, Lovenox, Symbicort and COVID-19 biotin vitamin cocktail; patient remains on Zosyn as recommended by pulmonary service 05/25/2021 Patient is evaluated and discussed with nursing staff; remains on O2 at 60 L with O2 saturation between 90-92% Vital signs are reviewed temperature 98.1, pulse 73, respirations 17 and blood pressure of 149/63 Patient remains on therapy with dexamethasone, Lovenox, vitamins; remains on emp iric IV antibiotic therapy in form of Zosyn as recommended by pulmonary service Prognosis remains guarded 05/26/2021 Patient is seen and evaluated Patient is currently using 100% nonrebreather facemask in addition to high flow oxygen 6 L with an FiO2 of 90%. His breathing is nonlabored. Overnight he is using BiPAP for respiratory support. Is not clear to me if there is any superinfection. Despite a elevated pharmacy.pro-calcitonin level level, my overall suspicion for abacterial infection is quite low in this patient. ID is considering the possibility of adding Baricitinib; given concern about a superimposed bacterial infection and elevated procalcitonin level at 1.59, patient was given IV Zosyn. 05/27/2021 The patient is seen and evaluated and discussed with nursing staff; currently on Airvo at 6 L flow with a 90% FiO2. Pulse ox is around 91%. Vital signs are reviewed and stable with temperature of 97.8, pulse 96, respirations 16 and blood pressure 127/72 Blood glucose remains elevated but gradually improving; d-dimer is trending down and is 0.47 this morning Patient has been taken off the IV Zosyn by infectious disease due to lack of concern of superinfection at this point in time. The patient is going to be started on Baricitinib. Patient remains on Decadron 6 mg IV twice a day. 05/28/2021 Patient is seen and evaluated in room and discussed with nursing staff. Patient experienced difficulty overnight and found BIPAP mask off upon awakening in the morning. Patient had significant respiratory distress with pulse ox trending downward to the mid 70s. Patient is back on the BIPAP and is in no longer in severe distress as he experienced earlier. He is on a regimen of Decadron and Caricitinib. His WBC count remains at 19.8 however he still suffers from a component of lymphopenia. D-dimer is at 1.33, glucose at 219, and LDH is now 923 after re-evaluation after 2 days. Chest x ray which was conducted yesterday shows diffuse bilateral pulmonary infiltrates consistent with COVID pneumonia. Patient is also using a incentive spiromter, on symbicort, and using albuterol as needed. Antibiotics have been discontinued and patietn is afebrile, hemodynamically stable, no major chagnes other than pulse ox drop from this morning. 05/29/2021 Patient is seen and evaluated and discussed with the nursing staff; currently on Airvo with an FI02 of 90%. Pulse ox is around 88-91%. Vital signs are reviewed and stable and afebrile. Patient is hemodynamically stable. Patient states that he is feeling better than yesterday- patient does not seem to be in any type of stress nor is he anxious as he was yesterday. Patient's WBC count today was 23.09. Patient's current medication regimen remains a combination of Decadron and Baricitinib. No major or significant c hanges compared to yesterday. 05/30/2021 Patient is seen and evaluated and discussed with nursing staff. Patient had a follow up chest x ray which is showing improvement in the pulmonary infiltrations as compared to the chest x ray obtained previously. There is also improvement on aeration. Patient is now on Airvo with an FIO2 of 80%. Overnight patient is going to a BIPAP at a pressure of 10/5 and continues at the FiO2 of 100% on the BIPAP. WBC count has trended down from 23.09 to 17 today. Patient remains on current medication regimen of Decadron and Baricitinib. Patient's D- Dimer is 1.6. Rest of electrolytes are all within normal limits with no fever, chills, or signs of any infection. Patient is tolerating his diet and seems to be much more active. No further recommendations, continue with current care. No major significant changes or differences compared to yesterday. 05/31/2021 The patient was seen and evaluated and discussed with nursing staff. Patient is now sitting upright and is on high flow oxygen, Patient is on Airvo at 60 L & Fio2 is down to 70% Current pulse ox is 93%. He remains on his current medication of Decadron & Baricitinib. He is on lovenox for anticoagulation. He has no specific complaints today. His progression has been slow but we were able to decrease his FiO2 slowly over the past week. His WBC count is 17.8, Hb is 14.3, Creatinine is 0.8 , Na is 139, Inflammatory markers are dropped & his LDH is trending downwards. Patient has a good appetite. Patient has no fever or chills & is in good spirits. His pulse ox. desaturates with activity & then recovers faster Objective - Vital Signs Vital signs: Vital Signs Temp 97.3 F L 05/31/21 10:00 Pulse 77 05/31/21 10:00 Resp 22 05/31/21 10:00 BP 107/65 05/31/21 10:00 Pulse Ox 91 L 05/31/21 10:00 Intake & Output 05/30/21 05/31/21 05/31/21 18:59 06:59 18:59 Output Total 2500 1900 Balance -2500 -1900 Output: Urine 2500 1900 Other: Voiding Method Urinal - Exam PHYSICAL EXAMINATION: GENERAL: The patient is alert and oriented x3, not in any acute distress. Well developed, well nourished. HEENT: Pupils are round and equally reacting to light. EOMI. No scleral icterus. No conjunctival pallor. Normocephalic, atraumatic. No pharyngeal erythema. No thyromegaly. CARDIOVASCULAR: S1 and S2 present. No murmurs, rubs, or gallops. PULMONARY: Chest is clear to auscultation, no wheezing or crackles. ABDOMEN: Soft, nontender, nondistended, normoactive bowel sounds. No palpable organomegaly. MUSCULOSKELETAL: No joint swelling or deformity. EXTREMITIES: No cyanosis, clubbing, or pedal edema. NEUROLOGICAL: Gross neurological examination did not reveal any focal deficits. SKIN: No rashes. - Labs CBC & Chem 7: 06/01/21 09:02 06/01/21 09:02 Labs: Abnormal Lab Results - Last 24 Hours (Table) 05/30/21 05/30/21 05/30/21 Range/Units 07:07 16:40 20:20 WBC (3.8-10.6) k/uL Neutrophils # (1.3-7.7) k/uL Lymphocytes # (1.0-4.8) k/uL Carbon Dioxide (22-30) mmol/L BUN (9-20) mg/dL Glucose (74-99) mg/dL POC Glucose (mg/dL) 396 H 317 H (75-99) mg/dL ALT (4-49) U/L Lactate Dehydrogenase 316 H (120-246) U/L Total Protein (6.3-8.2) g/dL Albumin (3.5-5.0) g/dL 05/31/21 05/31/21 05/31/21 Range/Units 06:53 06:53 06:55 WBC 17.8 H (3.8-10.6) k/uL Neutrophils # 15.4 H (1.3-7.7) k/uL Lymphocytes # 0.9 L (1.0-4.8) k/uL Carbon Dioxide 31 H (22-30) mmol/L BUN 25 H (9-20) mg/dL Glucose 121 H (74-99) mg/dL POC Glucose (mg/dL) 110 H (75-99) mg/dL ALT 112 H (4-49) U/L Lactate Dehydrogenase (120-246) U/L Total Protein 5.8 L (6.3-8.2) g/dL Albumin 2.8 L (3.5-5.0) g/dL 05/31/21 Range/Units 11:53 WBC (3.8-10.6) k/uL Neutrophils # (1.3-7.7) k/uL Lymphocytes # (1.0-4.8) k/uL Carbon Dioxide (22-30) mmol/L BUN (9-20) mg/dL Glucose (74-99) mg/dL POC Glucose (mg/dL) 178 H (75-99) mg/dL ALT (4-49) U/L Lactate Dehydrogenase (120-246) U/L Total Protein (6.3-8.2) g/dL Albumin (3.5-5.0) g/dL Assessment and Plan Assessment: 1. Acute hypoxic respiratory failure secondary to COVID-19 pneumonia - Patient remains on beta gary therapy, dexamethasone and Lovenox; baricitinib as per pulmonary recommendations; continue with COVID-19 vitamin cocktail 2. Lactic acidosis; possibly related to COVID-19 infection and dehydration; we will continue to trend inflammatory markers and lactic acid levels 3. Hypomagnesemia; resolved 4. Asthma; not in exacerbation; continue with inhaler therapy DVT prophylaxis; SCDs/anticoagulation CODE STATUS; full code
[2021-06-02 07:07] LABS: Glucose,Whole Blood 95 mg/dL (75-99)
[2021-06-02 07:35] LABS: Basophils # (A) 0.1 k/uL (0-0.2); Basophils % (A) 0 %; Eosinophils # (A) 0.3 k/uL (0-0.7); Eosinophils % (A) 1 %; HCT 47.8 % (39.0-53.0); HGB 15.9 gm/dL (13.0-17.5); Lymphocytes # (A) 1.4 k/uL (1.0-4.8); Lymphocytes % (A) 7 %; MCH 29.5 pg (25.0-35.0); MCHC 33.3 g/dL (31.0-37.0); MCV 88.7 fL (80.0-100.0); Mean Platelet Volume 7.9; Monocytes # (A) 1.2 k/uL (0-1.0); Monocytes % (A) 6 %; Neutrophils # (A) 16.7 k/uL (1.3-7.7); Neutrophils % (A) 84 %; Platelet Count 356 k/uL (150-450); RBC 5.38 m/uL (4.30-5.90); RDW 13.7 % (11.5-15.5); WBC 19.8 k/uL (3.8-10.6)
[2021-06-02 07:44] LABS: ALT 106 U/L (4-49); AST 40 U/L (17-59); African American GFR (CKD) >90 (>60 ml/min/1.73 sqM); Albumin 3.2 g/dL (3.5-5.0); Albumin/Globulin Ratio 1.1; Alkaline Phosphatase 72 U/L (38-126); Anion Gap 7 mmol/L; Blood Urea Nitrogen 19 mg/dL (9-20); Calcium 9.1 mg/dL (8.4-10.2); Carbon Dioxide 31 mmol/L (22-30); Chloride 100 mmol/L (98-107); Glucose 116 mg/dL (74-99); Non-African American GFR(CKD) >90 (>60 ml/min/1.73 sqM); Potassium 4.7 mmol/L (3.5-5.1); Sodium 138 mmol/L (137-145); Total Bilirubin 0.8 mg/dL (0.2-1.3); Total Protein 6.2 g/dL (6.3-8.2)
[2021-06-02] MEDS: INSULIN ASPART (NovoLOG) 100 UNIT/ML VIAL SQ SCH ×7 (07:53→21:41)
[2021-06-02] MEDS: BARICITINIB 2 MG TABLET PO SCH (07:54)
[2021-06-02] MEDS: CHOLECALCIFEROL 25 MCG (1000 IU) TABLET PO SCH (07:54)
[2021-06-02] MEDS: ENOXAPARIN 40 MG/0.4 ML SYRINGE SQ SCH (07:54)
[2021-06-02] MEDS: DEXAMETHASONE SOD PHOSPHATE 10 MG/ML 1 ML VIAL IV SCH (07:54)
[2021-06-02] MEDS: ASCORBIC ACID 500 MG TAB PO SCH (07:54)
[2021-06-02] MEDS: ZINC SULFATE 220 MG CAP PO SCH (07:54)
[2021-06-02] MEDS: SYMBICORT 160-4.5 MCG INHALER INHALATION SCH ×2 (08:02→19:38)
[2021-06-02] MEDS: ALBUTEROL HFA INHALER INHALATION PRN ×4 (08:02→19:38)
--- NOTE | 2021-06-02 08:28 | P.PN ---
Subjective Progress Note Date: 06/01/21 Principal diagnosis: Acute hypoxemic respiratory failure COVID-19 pneumonia Lactic acidosis 41-year-old male with a known history of asthma and previous history of smoking presents to ER with complaints of worsening shortness of breath, cough and fever. Patient has been sick for the past 1 week. patient was febrile with T- max of 104.1 on admission and was tachycardic and tachypneic with pulse ox 85% on room air on admission. Patient was tested positive for COVID-19 infection in May 13, 2021. Patient was symptomatic for about 2 days prior to his test. Patient was taking [id number] medications and breathing status is not improving. Presented to ER due to worsening symptoms. On admission patient was hypoxic. Chest x-ray showed interval marked worsening appearance of the chest with bilateral multifocal areas of infiltrate suggestive of pneumonia. EKG showed sinus tachycardia. 05/24/2021 Patient is seen and evaluated and discussed with nursing staff; continues to require oxygen at 60 L with at bedtime and see with O2 saturation maintaining between 89-90% Vital signs are stable with temperature of 97.5, pulse 67, respiration 18 and blood pressure 163/67; O2 saturation 93% Lab review shows WBC 13.9, hemoglobin 16.4, platelet count of 333, BUN/creatinine of 32/1 Repeat chest x-ray revealed MILD improvement He is currently on AIRVO; counseling done on self proning for 4-6 hours during the day and 4-6 hours at night as tolerated; continue with Decadron, Lovenox, Symbicort and COVID-19 biotin vitamin cocktail; patient remains on Zosyn as recommended by pulmonary service 05/25/2021 Patient is evaluated and discussed with nursing staff; remains on O2 at 60 L with O2 saturation between 90-92% Vital signs are reviewed temperature 98.1, pulse 73, respirations 17 and blood pressure of 149/63 Patient remains on therapy with dexamethasone, Lovenox, vitamins; remains on emp iric IV antibiotic therapy in form of Zosyn as recommended by pulmonary service Prognosis remains guarded 05/26/2021 Patient is seen and evaluated Patient is currently using 100% nonrebreather facemask in addition to high flow oxygen 6 L with an FiO2 of 90%. His breathing is nonlabored. Overnight he is using BiPAP for respiratory support. Is not clear to me if there is any superinfection. Despite a elevated pharmacy.pro-calcitonin level level, my overall suspicion for abacterial infection is quite low in this patient. ID is considering the possibility of adding Baricitinib; given concern about a superimposed bacterial infection and elevated procalcitonin level at 1.59, patient was given IV Zosyn. 05/27/2021 The patient is seen and evaluated and discussed with nursing staff; currently on Airvo at 6 L flow with a 90% FiO2. Pulse ox is around 91%. Vital signs are reviewed and stable with temperature of 97.8, pulse 96, respirations 16 and blood pressure 127/72 Blood glucose remains elevated but gradually improving; d-dimer is trending down and is 0.47 this morning Patient has been taken off the IV Zosyn by infectious disease due to lack of concern of superinfection at this point in time. The patient is going to be started on Baricitinib. Patient remains on Decadron 6 mg IV twice a day. 05/28/2021 Patient is seen and evaluated in room and discussed with nursing staff. Patient experienced difficulty overnight and found BIPAP mask off upon awakening in the morning. Patient had significant respiratory distress with pulse ox trending downward to the mid 70s. Patient is back on the BIPAP and is in no longer in severe distress as he experienced earlier. He is on a regimen of Decadron and Caricitinib. His WBC count remains at 19.8 however he still suffers from a component of lymphopenia. D-dimer is at 1.33, glucose at 219, and LDH is now 923 after re-evaluation after 2 days. Chest x ray which was conducted yesterday shows diffuse bilateral pulmonary infiltrates consistent with COVID pneumonia. Patient is also using a incentive spiromter, on symbicort, and using albuterol as needed. Antibiotics have been discontinued and patietn is afebrile, hemodynamically stable, no major chagnes other than pulse ox drop from this morning. 05/29/2021 Patient is seen and evaluated and discussed with the nursing staff; currently on Airvo with an FI02 of 90%. Pulse ox is around 88-91%. Vital signs are reviewed and stable and afebrile. Patient is hemodynamically stable. Patient states that he is feeling better than yesterday- patient does not seem to be in any type of stress nor is he anxious as he was yesterday. Patient's WBC count today was 23.09. Patient's current medication regimen remains a combination of Decadron and Baricitinib. No major or significant c hanges compared to yesterday. 05/30/2021 Patient is seen and evaluated and discussed with nursing staff. Patient had a follow up chest x ray which is showing improvement in the pulmonary infiltrations as compared to the chest x ray obtained previously. There is also improvement on aeration. Patient is now on Airvo with an FIO2 of 80%. Overnight patient is going to a BIPAP at a pressure of 10/5 and continues at the FiO2 of 100% on the BIPAP. WBC count has trended down from 23.09 to 17 today. Patient remains on current medication regimen of Decadron and Baricitinib. Patient's D- Dimer is 1.6. Rest of electrolytes are all within normal limits with no fever, chills, or signs of any infection. Patient is tolerating his diet and seems to be much more active. No further recommendations, continue with current care. No major significant changes or differences compared to yesterday. 05/31/2021 The patient was seen and evaluated and discussed with nursing staff. Patient is now sitting upright and is on high flow oxygen, Patient is on Airvo at 60 L & Fio2 is down to 70% Current pulse ox is 93%. He remains on his current medication of Decadron & Baricitinib. He is on lovenox for anticoagulation. He has no specific complaints today. His progression has been slow but we were able to decrease his FiO2 slowly over the past week. His WBC count is 17.8, Hb is 14.3, Creatinine is 0.8 , Na is 139, Inflammatory markers are dropped & his LDH is trending downwards. Patient has a good appetite. Patient has no fever or chills & is in good spirits. His pulse ox. desaturates with activity & then recovers faster 06/01/2021 Patient is seen and evaluated, and discussed with nursing staff. Currently, patient is improving he has been weaned off of Airvo down to 50L with an FiO2 of 70%. His pulse ox is at 93%. Patient remains on a regimen of Decadron, Baricitinib, and Levenox for anticoagulation. Patient is in no acute distress nor has any new complaints other than occasional dry cough. There is no significant sputum production, no fever, no chills, no nausea, no vomiting. Patient denies any abdominal pain. Currently, LDH levels are trending down significantly. The patient is gradually being weaned off his oxygen source but we are waiting for FiO2 to drop further. Objective - Vital Signs Vital signs: Vital Signs Temp 97.9 F 06/01/21 14:00 Pulse 81 06/01/21 14:00 Resp 20 06/01/21 14:00 BP 121/69 06/01/21 14:00 Pulse Ox 94 L 06/01/21 16:13 Intake & Output 05/31/21 06/01/21 06/01/21 18:59 06:59 18:59 Intake Total 500 Output Total 1100 Balance -1100 500 Intake: Oral 500 Output: Urine 1100 Other: Voiding Method Urinal Urinal Urinal # Voids 1,500 1 # Bowel Movements 1 1 - Exam PHYSICAL EXAMINATION: GENERAL: The patient is alert and oriented x3, not in any acute distress. Well developed, well nourished. HEENT: Pupils are round and equally reacting to light. EOMI. No scleral icterus. No conjunctival pallor. Normocephalic, atraumatic. No pharyngeal erythema. No thyromegaly. CARDIOVASCULAR: S1 and S2 present. No murmurs, rubs, or gallops. PULMONARY: Chest is clear to auscultation, no wheezing or crackles. ABDOMEN: Soft, nontender, nondistended, normoactive bowel sounds. No palpable organomegaly. MUSCULOSKELETAL: No joint swelling or deformity. EXTREMITIES: No cyanosis, clubbing, or pedal edema. NEUROLOGICAL: Gross neurological examination did not reveal any focal deficits. SKIN: No rashes. - Labs CBC & Chem 7: 06/01/21 09:02 06/01/21 09:02 Labs: Abnormal Lab Results - Last 24 Hours (Table) 05/31/21 05/31/21 06/01/21 Range/Units 16:49 20:51 07:33 WBC (3.8-10.6) k/uL Neutrophils # (1.3-7.7) k/uL Monocytes # (0-1.0) k/uL Sodium (137-145) mmol/L BUN (9-20) mg/dL Glucose (74-99) mg/dL POC Glucose (mg/dL) 377 H 308 H 112 H (75-99) mg/dL ALT (4-49) U/L Total Protein (6.3-8.2) g/dL Albumin (3.5-5.0) g/dL 06/01/21 06/01/21 06/01/21 Range/Units 09:02 09:02 12:06 WBC 19.4 H (3.8-10.6) k/uL Neutrophils # 16.5 H (1.3-7.7) k/uL Monocytes # 1.1 H (0-1.0) k/uL Sodium 136 L (137-145) mmol/L BUN 26 H (9-20) mg/dL Glucose 250 H (74-99) mg/dL POC Glucose (mg/dL) 206 H (75-99) mg/dL ALT 107 H (4-49) U/L Total Protein 5.9 L (6.3-8.2) g/dL Albumin 3.0 L (3.5-5.0) g/dL Assessment and Plan Assessment: 1. Acute hypoxic respiratory failure secondary to COVID-19 pneumonia - Patient remains on beta gary therapy, dexamethasone and Lovenox; baricitinib as per pulmonary recommendations; continue with COVID-19 vitamin cocktail 2. Lactic acidosis; possibly related to COVID-19 infection and dehydration; we will continue to trend inflammatory markers and lactic acid levels 3. Hypomagnesemia; resolved 4. Asthma; not in exacerbation; continue with inhaler therapy DVT prophylaxis; SCDs/anticoagulation CODE STATUS; full code
[2021-06-02 12:00] LABS: Glucose,Whole Blood 238 mg/dL (75-99)
--- NOTE | 2021-06-02 14:33 | P.PN ---
Subjective Progress Note Date: 06/02/21 Principal diagnosis: Dyspnea, cough, hypoxia, pneumonia 41-year-old male presents to the emergency department on May 19, complaining of chest pain, shortness of breath, fever, soreness, and cough. The patient apparently states that he was tested positive for coronavirus on May 13. He was actually sick one or 2 days prior to that. The patient came to the emergency room because his symptoms continued to get worse, and were not getting any better. The patient is on 10 L high flow nasal O2. Not receiving any IV fluids. The patient does apparently have a history of asthma, and a previous history of tobacco use. The patient was seen in the emergency department and admitted. We saw him in the emergency room, room 27. The patient denied any GI complaints. White count 10.1, hemoglobin 16.2, hematocrit 48.9, and platelet count 126,000. PT, INR, PTT, and d-dimer were all normal. Sodium 136, potassium, chloride, CO2, anion gap, BUN, and creatinine are all normal. Lactic acid was 2.3, repeat 1.4. AST 158, ALT 80. LDH 1295. C-reactive protein 17.1. COVID testing was positive. Chest x-ray, which we cannot see, consistent with diffuse bilateral infiltrates. The patient is unvaccinated. On 05/21/2021 patient seen in follow-up in medical surgical floor, since yesterday his oxygen demand has increased, he is currently at 60 L and FiO2 of 94%, in addition his been having to wear a nonrebreather mask on and off. On Airvo without the nonrebreather mask his pulse ox is ranging between 82-85%. Patient states he becomes especially short of breath with any exertion. But he is awake and alert, oriented 3, he has not been able to prone, he only tried it once, however he said his breathing got worse and he could not tolerate it, he was encouraged to at least reposition self from side to side. No fever, his vital signs have been stable other than worsening hypoxemia. Repeat chest x-ray has been obtained showing bilateral patchy infiltrates. Patient is on Decadron 6 mg twice daily, he was started on Baricitinib, is on prophylactic dose Lovenox 40 mg daily, and COVID vitamins. Today's lab work has been reviewed his white blood cell count is 13.8, hemoglobin is 14.9, d-dimer is pending, electrolytes were within normal limits, and his BUN is 24, creatinine is 0.91, his AST and ALT slightly improved and are down to 87 and 61 respectively, alkaline phosphatase is 77, his pro calcitonin level was increased at 1.83. Overall upon physical exam patient does not appear to be in any acute distress, he states he was able to taken at this morning, he felt better after that, denies any chest discomfort, he states he doesn't feel like his fatigued, does not appear to be using any accessory muscles of breathing. On 05/22/2021 patient seen in follow-up on medical surgical floor. He remains on Airvo at 60 L and FiO2 of 93% in addition to 100% nonrebreather mask, and his O2 saturations on both of those things are around 85-88%. Patient is not wearing nonrebreather mask continuously, he states is uncomfortable, he does not want to wear it. He is wearing only intermittently. CT chest was completed yesterday showing no evidence of pulmonary embolism, and extensive bilateral pneumonia. There is fatty infiltration of the liver. Yesterday's d-dimer was 0.7, its 0.40 on today's labs, LDH status 1046, relatively stable. He is on D ecadron 6 mg daily, he is on prophylactic Lovenox, had to discontinue his bare sitting up yesterday in view of his elevated pro calcitonin and possibility of developing bacterial superinfection. Blood cultures have been negative. Final cultures are pending. he has been afebrile, occasional cough, not bringing up any phlegm. Does not appear to be in any acute distress, although his pulse ox is around 83% on Airvo, patient states he does not want to be intubated and placed on mechanical ventilator, he wants to try to ride it out, patient states there is no way he is going on the ventilator so the hospital can make more money off him. There was a long discussion at the bedside explaining to the patient the importance of maintaining adequate oxygenation to prevent organ damage and failure. However the patient stated he would rather than go on the ventilator On 06/02/2001 patient seen in follow-up on medical surgical floor. He is awake and alert, in no acute distress, he is currently sitting up in the recliner, he has been alternating his Airvo with BiPAP support at night. He is currently on Airvo at 40 L and FiO2 of 60%, his pulse ox is 93%. He is afebrile, hemodynamically stable, no chest discomfort, he denies worsening dyspnea, although he is dyspneic with any exertion. His last chest x-ray is from 05/30/2021 showing stable bilateral multifocal pneumonia. Today's labs have been reviewed, his white blood cell count is 19.8, hemoglobin is 15.9, neutrophil count is 16.7, his electrolytes and renal profile were fairly unremarkable. he was retested for COVID-19 and was found to be negative and she can be removed out of isolation. His follow-up inflammatory markers are pending for today. His last d-dimer was 1.61 and that was on 05/30/2021. Patient continues on Decadron 6 mg IV push daily, he remains on Baricitinib, Symbicort, Ventolin inhaler, he is off the insulin infusion, he was started on Levemir 10 units at bedtime and sliding scale NovoLog and mealtime NovoLog. His blood sugars are better controlled, this morning his blood sugar was 95, then before lunch his blood sugar was 238. Denies any nausea vomiting or diarrhea. Objective - Vital Signs Vital signs: Vital Signs Temp 98.1 F 06/02/21 10:00 Pulse 93 06/02/21 10:00 Resp 20 06/02/21 10:00 BP 118/76 06/02/21 10:00 Pulse Ox 93 L 06/02/21 12:03 Intake & Output 06/01/21 06/02/21 06/02/21 18:59 06:59 18:59 Intake Total 875 300 Output Total 4500 Balance 875 -4500 300 Intake: Oral 875 300 Output: Urine 4500 Other: Voiding Method Urinal Urinal Urinal # Voids 400 900 - Exam GENERAL EXAM: Alert, 41-year-old male, on Airvo, at 40 L and FiO2 of 60%, with a pulse ox between 93%, patient alternates that with BiPAP support at bedtime HEAD: Normocephalic/atraumatic. EYES: Normal reaction of pupils, equal size. Conjunctiva pink, sclera white. NOSE: Clear with pink turbinates. THROAT: No erythema or exudates. NECK: No masses, no JVD, no thyroid enlargement, no adenopathy. CHEST: No chest wall deformity. Symmetrical expansion. LUNGS: Equal air entry with bibasilar crackles CVS: Regular rate and rhythm, normal S1 and S2, no gallops, no murmurs, no rubs ABDOMEN: Soft, nontender. No hepatosplenomegaly, normal bowel sounds, no guarding or rigidity. EXTREMITIES: No clubbing, no edema, no cyanosis, 2+ pulses and upper and lower extremities. MUSCULOSKELETAL: Muscle strength and tone normal. SPINE: No scoliosis or deformity SKIN: No rashes CENTRAL NERVOUS SYSTEM: Alert and oriented -3. No focal deficits, tone is normal in all 4 extremities. PSYCHIATRIC: Alert and oriented -3. Appropriate affect. Intact judgment and insight. - Labs CBC & Chem 7: 06/02/21 07:23 06/02/21 07:23 Labs: Abnormal Lab Results - Last 24 Hours (Table) 06/01/21 06/01/21 06/02/21 Range/Units 17:02 19:57 07:23 WBC 19.8 H (3.8-10.6) k/uL Neutrophils # 16.7 H (1.3-7.7) k/uL Monocytes # 1.2 H (0-1.0) k/uL Carbon Dioxide (22-30) mmol/L Glucose (74-99) mg/dL POC Glucose (mg/dL) 376 H 289 H (75-99) mg/dL ALT (4-49) U/L Total Protein (6.3-8.2) g/dL Albumin (3.5-5.0) g/dL 06/02/21 06/02/21 Range/Units 07:23 11:58 WBC (3.8-10.6) k/uL Neutrophils # (1.3-7.7) k/uL Monocytes # (0-1.0) k/uL Carbon Dioxide 31 H (22-30) mmol/L Glucose 116 H (74-99) mg/dL POC Glucose (mg/dL) 238 H (75-99) mg/dL ALT 106 H (4-49) U/L Total Protein 6.2 L (6.3-8.2) g/dL Albumin 3.2 L (3.5-5.0) g/dL Assessment and Plan Plan: Assessment: #1. Acute and severe hypoxic respiratory failure related to acute COVID-19 pneumonia, patient presented with one-week history of symptoms including shortness of breath, cough, fever. Patient is non-vaccinated. Status post monoclonal antibiotic infusion. Patient was not a candidate for Remdesivir while in the hospital, was started on Baricitinib on 05/20/2021. Baricitinib was discontinued yesterday on 05/21/2021 in view of elevated pro-calcitonin level suggesting presence of a bacterial infection and possibility of developing an overwhelming superinfection. All cultures were negative, infection was ruled out, and Baricitinib was restarted on 05/27/2021 #2. Former smoker #3. History of chronic bronchial asthma, unspecified #4. Elevated inflammatory markers related to COVID-19 infection, improving #5. Mild lactic acidosis, improved with IV hydration #6. Elevated pro-calcitonin level, all cultures were negative, underlying bacterial infection was ruled out, and patient was restarted on Baricitnib Plan: Continue current medical treatment Patient remains on Airvo, currently down to 40 L and FiO2 of 60%, alternating it with BiPAP support Continue weaning FiO2 gradually to keep O2 sats ration is at or above 88% Continue BiPAP support as needed and at bedtime Continue Kvng, Dexamethasone, lovenox Obtain inflammatory markers, follow-up chest x-ray tomorrow I performed a history & physical examination of the patient and discussed their management with my nurse practitioner, Cady Ospina. I reviewed the nurse practitioner's note and agree with the documented findings and plan of care. Lung sounds are positive for throughout the lung saleh. The findings and the impression was discussed with the patient. I attest to the documentation by the nurse practitioner. Time with Patient: Less than 30
[2021-06-02 16:31] LABS: Glucose,Whole Blood 299 mg/dL (75-99)
[2021-06-02 21:24] LABS: Glucose,Whole Blood 235 mg/dL (75-99)
[2021-06-02] MEDS: INSULIN DETEMIR (LEVEMIR) 100 UNIT/ML SYR SQ SCH (21:48)
[2021-06-02] MEDS: ACETAMINOPHEN TAB 500 MG TAB PO PRN (21:49)
--- NOTE | 2021-06-02 23:35 | P.PN ---
Subjective Progress Note Date: 06/02/21 Acute hypoxemic respiratory failure COVID-19 pneumonia Lactic acidosis 41-year-old male with a known history of asthma and previous history of smoking presents to ER with complaints of worsening shortness of breath, cough and fever. Patient has been sick for the past 1 week. patient was febrile with T- max of 104.1 on admission and was tachycardic and tachypneic with pulse ox 85% on room air on admission. Patient was tested positive for COVID-19 infection in May 13, 2021. Patient was symptomatic for about 2 days prior to his test. Patient was taking [id number] medications and breathing status is not improving. Presented to ER due to worsening symptoms. On admission patient was hypoxic. Chest x-ray showed interval marked worsening appearance of the chest with bilateral multifocal areas of infiltrate suggestive of pneumonia. EKG showed sinus tachycardia. 05/24/2021 Patient is seen and evaluated and discussed with nursing staff; continues to require oxygen at 60 L with at bedtime and see with O2 saturation maintaining between 89-90% Vital signs are stable with temperature of 97.5, pulse 67, respiration 18 and blood pressure 163/67; O2 saturation 93% Lab review shows WBC 13.9, hemoglobin 16.4, platelet count of 333, BUN/cr eatinine of 32/1 Repeat chest x-ray revealed MILD improvement He is currently on AIRVO; counseling done on self proning for 4-6 hours during the day and 4-6 hours at night as tolerated; continue with Decadron, Lovenox, Symbicort and COVID-19 biotin vitamin cocktail; patient remains on Zosyn as recommended by pulmonary service 05/25/2021 Patient is evaluated and discussed with nursing staff; remains on O2 at 60 L with O2 saturation between 90-92% Vital signs are reviewed temperature 98.1, pulse 73, respirations 17 and blood pressure of 149/63 Patient remains on therapy with dexamethasone, Lovenox, vitamins; remains on empiric IV antibiotic therapy in form of Zosyn as recommended by pulmonary service Prognosis remains guarded 05/26/2021 Patient is seen and evaluated Patient is currently using 100% nonrebreather facemask in addition to high flow oxygen 6 L with an FiO2 of 90%. His breathing is nonlabored. Overnight he is using BiPAP for respiratory support. Is not clear to me if there is any superinfection. Despite a elevated pharmacy.pro-calcitonin level level, my overall suspicion for abacterial infection is quite low in this patient. ID is considering the possibility of adding Baricitinib; given concern about a superimposed bacterial infection and elevated procalcitonin level at 1.59, patient was given IV Zosyn. 05/27/2021 The patient is seen and evaluated and discussed with nursing staff; currently on Airvo at 6 L flow with a 90% FiO2. Pulse ox is around 91%. Vital signs are reviewed and stable with temperature of 97.8, pulse 96, respirations 16 and blood pressure 127/72 Blood glucose remains elevated but gradually improving; d-dimer is trending down and is 0.47 this morning Patient has been taken off the IV Zosyn by infectious disease due to lack of concern of superinfection at this point in time. The patient is going to be started on Baricitinib. Patient remains on Decadron 6 mg IV twice a day. 05/28/2021 Patient is seen and evaluated in room and discussed with nursing staff. Patient experienced difficulty overnight and found BIPAP mask off upon awakening in the morning. Patient had significant respiratory distress with pulse ox trending d ownward to the mid 70s. Patient is back on the BIPAP and is in no longer in severe distress as he experienced earlier. He is on a regimen of Decadron and Caricitinib. His WBC count remains at 19.8 however he still suffers from a component of lymphopenia. D-dimer is at 1.33, glucose at 219, and LDH is now 923 after re-evaluation after 2 days. Chest x ray which was conducted yesterday shows diffuse bilateral pulmonary infiltrates consistent with COVID pneumonia. Patient is also using a incentive spiromter, on symbicort, and using albuterol as needed. Antibiotics have been discontinued and patietn is afebrile, hemodynamically stable, no major chagnes other than pulse ox drop from this morning. 05/29/2021 Patient is seen and evaluated and discussed with the nursing staff; currently on Airvo with an FI02 of 90%. Pulse ox is around 88-91%. Vital signs are reviewed and stable and afebrile. Patient is hemodynamically stable. Patient states that he is feeling better than yesterday- patient does not seem to be in any type of stress nor is he anxious as he was yesterday. Patient's WBC count today was 23.09. Patient's current medication regimen remains a combination of Decadron and Baricitinib. No major or significant changes compared to yesterday. 05/30/2021 Patient is seen and evaluated and discussed with nursing staff. Patient had a follow up chest x ray which is showing improvement in the pulmonary infiltrations as compared to the chest x ray obtained previously. There is also improvement on aeration. Patient is now on Airvo with an FIO2 of 80%. Overnight patient is going to a BIPAP at a pressure of 10/5 and continues at the FiO2 of 100% on the BIPAP. WBC count has trended down from 23.09 to 17 today. Patient remains on current medication regimen of Decadron and Baricitinib. Patient's D- Dimer is 1.6. Rest of electrolytes are all within normal limits with no fever, chills, or signs of any infection. Patient is tolerating his diet and seems to be much more active. No further recommendations, continue with current care. No major significant changes or differences compared to yesterday. 05/31/2021 The patient was seen and evaluated and discussed with nursing staff. Patient is now sitting upright and is on high flow oxygen, Patient is on Airvo at 60 L & Fio2 is down to 70% Current pulse ox is 93%. He remains on his current medication of Decadron & Baricitinib. He is on lovenox for anticoagulation. He has no specific complaints today. His progression has been slow but we were able to decrease his FiO2 slowly over the past week. His WBC count is 17.8, Hb is 14.3, Creatinine is 0.8 , Na is 139, Inflammatory markers are dropped & his LDH is trending downwards. Patient has a good appetite. Patient has no fever or chills & is in good spirits. His pulse ox. desaturates with activity & then recovers faster 06/01/2021 Patient is seen and evaluated, and discussed with nursing staff. Currently, patient is improving he has been weaned off of Airvo down to 50L with an FiO2 of 70%. His pulse ox is at 93%. Patient remains on a regimen of Decadron, Baricitinib, and Levenox for anticoagulation. Patient is in no acute distress nor has any new complaints other than occasional dry cough. There is no significant sputum production, no fever, no chills, no nausea, no vomiting. Patient denies any abdominal pain. Currently, LDH levels are trending down significantly. The patient is gradually being weaned off his oxygen source but we are waiting for FiO2 to drop further. 06/02/2021 Patient is seen and evaluated in follow up this morning and continues on airvo with continued BIpap use at night. Pulmonary following closely and patient is currently receiving Baricitinib along with lovenox, IV dexamethasone, vitamin and zinc supplements. Blood sugars are elevated and will continue sliding scale and long acting along with pre-meal and will readjust. Labs: WBC is 19.8, hemoglobin 15.9, sodium is 138, potassium is 4.5, creatinine is .75, repeat covid swab is not detected Review of systems: Constitutional: No reports of fatigue, fever, or chills Cardiovascular: No reports of chest pain or palpitations Respiratory: No reports of worsening shortness of breath or cough GI: No reports of nausea, vomiting, or diarrhea : No reports of dysuria or retention Neurovascular: No reports of weakness, reports chronic lower back pain. All medications have been reviewed Active Medications Acetaminophen (Acetaminophen Tab 500 Mg Tab) 1,000 mg PO Q6HR PRN PRN Reason: Fever>101 Last Admin: 05/19/21 21:03 Dose: 1,000 mg Documented by: Acetaminophen (Acetaminophen Tab 325 Mg Tab) 650 mg PO Q6HR PRN PRN Reason: Fever and/ or Pain Albuterol Sulfate (Albuterol Hfa Inhaler) 2 puff INHALATION Q4HR PRN PRN Reason: Shortness Of Breath Or Wheezing Last Admin: 06/02/21 15:31 Dose: 2 puff Documented by: Ascorbic Acid (Ascorbic Acid 500 Mg Tab) 1,000 mg PO DAILY MASSIMO Last Admin: 06/02/21 07:54 Dose: 1,000 mg Documented by: Baricitinib (Baricitinib 2 Mg Tablet) 4 mg PO DAILY MASSIMO Stop: 06/07/21 09:01 Last Admin: 06/02/21 07:54 Dose: 4 mg Documented by: Budesonide/Formoterol Fumarate (Symbicort 160-4.5 Mcg Inhaler) 2 puff INHALATION RT-BID [facility] Last Admin: 06/02/21 08:02 Dose: 2 puff Documented by: Cholecalciferol (Cholecalciferol 25 Mcg (1000 Iu) Tablet) 25 mcg PO DAILY [facility] Last Admin: 06/02/21 07:54 Dose: 25 mcg Documented by: Dexamethasone Sodium Phosphate (Dexamethasone Sod Phosphate 10 Mg/Ml 1 Ml Vial) 6 mg IV DAILY [facility] Last Admin: 06/02/21 07:54 Dose: 6 mg Documented by: Enoxaparin Sodium (Enoxaparin 40 Mg/0.4 Ml Syringe) 40 mg SQ DAILY [facility] Last Admin: 06/02/21 07:54 Dose: 40 mg Documented by: Insulin Aspart (Insulin Aspart (Novolog) 100 Unit/Ml Vial) 0 unit SQ ACHS [facility]; Protocol Last Admin: 06/02/21 12:45 Dose: 5 unit Documented by: Insulin Aspart (Insulin Aspart (Novolog) 100 Unit/Ml Vial) 2 unit SQ AC-TID [facility]; Protocol Last Admin: 06/02/21 12:45 Dose: 2 unit Documented by: Insulin Detemir (Insulin Detemir (Levemir) 100 Unit/Ml Syr) 10 unit SQ HS [facility] Last Admin: 06/01/21 20:23 Dose: 10 unit Documented by: Zinc Sulfate (Zinc Sulfate 220 Mg Cap) 220 mg PO DAILY [facility] Last Admin: 06/02/21 07:54 Dose: 220 mg Documented by: Physical exam: GENERAL: The patient is alert and oriented x3, not in any acute distress. Well developed, well nourished. HEENT: Pupils are round and equally reacting to light. EOMI. No scleral icterus. No conjunctival pallor. Normocephalic, atraumatic. No pharyngeal erythema. No thyromegaly. CARDIOVASCULAR: S1 and S2 present. No murmurs, rubs, or gallops. PULMONARY: Chest is clear to auscultation, no wheezing or crackles. ABDOMEN: Soft, nontender, nondistended, normoactive bowel sounds. No palpable organomegaly. MUSCULOSKELETAL: No joint swelling or deformity. EXTREMITIES: No cyanosis, clubbing, or pedal edema. NEUROLOGICAL: Gross neurological examination did not reveal any focal deficits. SKIN: No rashes. Assessment: -Acute hypoxic respiratory failure secondary to COVID-19 pneumonia, pulmonary and infectious disease following, continue Baricitinib, lovenox, albuterol, vitamin, zinc, and IV dexamethasone therapy, repeat chest xray and inflammatory markers in the am -Lactic acidosis; possibly related to COVID-19 infection and dehydration, improved -hyperglycemia, most likely steroid induced; continue with sliding scale, long acting, and will increase pre-meal insulin -Hypomagnesemia; resolved -Asthma; not in exacerbation; continue with inhaler therapy -DVT prophylaxis; SCDs/subcutaneous lovenox -full code Objective - Vital Signs Vital signs: Vital Signs Temp 98.3 F 06/02/21 06:00 Pulse 61 06/02/21 06:00 Resp 19 06/02/21 06:00 BP 131/80 06/02/21 06:00 Pulse Ox 92 L 06/02/21 08:03 Intake & Output 06/01/21 06/02/21 06/02/21 18:59 06:59 18:59 Intake Total 875 Output Total 4500 Balance 875 -4500 Intake: Oral 875 Output: Urine 4500 Other: Voiding Method Urinal Urinal # Voids 400 900 - Labs CBC & Chem 7: 06/02/21 07:23 06/02/21 07:23 Labs: Abnormal Lab Results - Last 24 Hours (Table) 06/01/21 06/01/21 06/01/21 Range/Units 12:06 17:02 19:57 WBC (3.8-10.6) k/uL Neutrophils # (1.3-7.7) k/uL Monocytes # (0-1.0) k/uL Carbon Dioxide (22-30) mmol/L Glucose (74-99) mg/dL POC Glucose (mg/dL) 206 H 376 H 289 H (75-99) mg/dL ALT (4-49) U/L Total Protein (6.3-8.2) g/dL Albumin (3.5-5.0) g/dL 06/02/21 06/02/21 Range/Units 07:23 07:23 WBC 19.8 H (3.8-10.6) k/uL Neutrophils # 16.7 H (1.3-7.7) k/uL Monocytes # 1.2 H (0-1.0) k/uL Carbon Dioxide 31 H (22-30) mmol/L Glucose 116 H (74-99) mg/dL POC Glucose (mg/dL) (75-99) mg/dL ALT 106 H (4-49) U/L Total Protein 6.2 L (6.3-8.2) g/dL Albumin 3.2 L (3.5-5.0) g/dL
--- NOTE | 2021-06-03 01:10 | PN ---
PROGRESS NOTE DATE OF SERVICE: 06/02/2021 REASON FOR FOLLOWUP: COVID-19 pneumonia. INTERVAL HISTORY: The patient is afebrile. The patient is breathing more comfortably today. The patient denies having any chest pain. He did have occasional cough; no sputum production. No abdominal pain and no diarrhea. PHYSICAL EXAMINATION: Blood pressure 122/63 with a pulse of 73, temperature 98.1. He is 93% on high-flow oxygen. General description is a middle-aged male up in the chair in no distress. RESPIRATORY SYSTEM: Unlabored breathing. Decreased intensity of breath sounds. No wheeze. HEART: S1, S2. Regular rate and rhythm. ABDOMEN: Soft. No tenderness. LABS: Hemoglobin is 15.9, white count 19.8. Creatinine 0.75. DIAGNOSTIC IMPRESSION AND PLAN: Patient with acute COVID-19 pneumonia in this patient who seems to have some more clinical improvement, requiring less oxygen, and has shown clinical improvement. Patient at this time to continue with the baricitinib, dexamethasone, zinc, ascorbic acid, Lovenox, respiratory support, and monitor clinical course closely. MMODL / IJN: [id number] /
[2021-06-03 07:26] LABS: Glucose,Whole Blood 112 mg/dL (75-99)
[2021-06-03] MEDS: INSULIN ASPART (NovoLOG) 100 UNIT/ML VIAL SQ SCH ×7 (07:37→20:40)
[2021-06-03] MEDS: DEXAMETHASONE SOD PHOSPHATE 10 MG/ML 1 ML VIAL IV SCH (08:03)
[2021-06-03] MEDS: ZINC SULFATE 220 MG CAP PO SCH (08:04)
[2021-06-03] MEDS: CHOLECALCIFEROL 25 MCG (1000 IU) TABLET PO SCH (08:04)
[2021-06-03] MEDS: BARICITINIB 2 MG TABLET PO SCH (08:04)
[2021-06-03] MEDS: ASCORBIC ACID 500 MG TAB PO SCH (08:04)
[2021-06-03] MEDS: ENOXAPARIN 40 MG/0.4 ML SYRINGE SQ SCH (08:05)
[2021-06-03] MEDS: SYMBICORT 160-4.5 MCG INHALER INHALATION SCH ×2 (08:25→21:22)
[2021-06-03] MEDS: ALBUTEROL HFA INHALER INHALATION PRN ×4 (08:25→21:22)
--- NOTE | 2021-06-03 09:29 | XR ---
EXAMINATION TYPE: XR chest 1V portable DATE OF EXAM: 06/03/2021 COMPARISON: Chest x-ray dated 05/30/2021 HISTORY: Covid TECHNIQUE: Single frontal view of the chest is obtained. FINDINGS: Bilateral airspace disease shows a similar appearance. No evident pneumothorax or pleural effusion. Cardiac mediastinal silhouette is unchanged. IMPRESSION: Findings consistent with Covid pneumonia
[2021-06-03 11:39] LABS: HGB 14.6 g/dL (13.0-17.0); MCHC 30.4 g/dL (32.0-37.0); MCV 92.1 fL (80.0-97.0); Mean Platelet Volume 10.7 fL (9.5-12.2); Platelet Count 335 X 10*3/uL (140-440); RBC 5.21 X 10*6/uL (4.40-5.60); RDW 13.5 % (11.5-14.5); WBC 18.59 X 10*3/uL (4.50-10.00)
[2021-06-03 11:49] LABS: Glucose,Whole Blood 238 mg/dL (75-99)
[2021-06-03 12:23] LABS: Basophils # (A) 0.05 X 10*3/uL (0.00-0.10); Basophils % (A) 0.3 %; Eosinophils # (A) 0.02 X 10*3/uL (0.04-0.35); Eosinophils % (A) 0.1 %; Lymphocytes # (A) 1.75 X 10*3/uL (0.90-5.00); Lymphocytes % (A) 9.4 %; Monocytes # (A) 1.98 X 10*3/uL (0.20-1.00); Monocytes % (A) 10.7 %; Neutrophils # (A) 14.46 X 10*3/uL (1.80-7.70); Neutrophils % (A) 77.7 %
[2021-06-03 13:29] LABS: African American GFR (CKD) 124.4 (60.0-200.0); Anion Gap 13.7 mmol/L (4.00-12.00); BUN/Creat Ratio 18.59 Ratio (12.00-20.00); Blood Urea Nitrogen 15.6 mg/dL (9.0-27.0); C Reactive Protein 8.5 mg/dL (0.00-0.80); Calcium 9.2 mg/dL (8.7-10.3); Carbon Dioxide 26.8 mmol/L (21.6-31.8); Non-African American GFR(CKD) 107.3 (60.0-200.0); Potassium 4.1 mmol/L (3.5-5.5)
--- NOTE | 2021-06-03 13:29 | P.PN ---
Subjective Progress Note Date: 06/03/21 Principal diagnosis: Dyspnea, cough, hypoxia, pneumonia 41-year-old male presents to the emergency department on May 19, complaining of chest pain, shortness of breath, fever, soreness, and cough. The patient apparently states that he was tested positive for coronavirus on May 13. He was actually sick one or 2 days prior to that. The patient came to the emergency room because his symptoms continued to get worse, and were not getting any better. The patient is on 10 L high flow nasal O2. Not receiving any IV fluids. The patient does apparently have a history of asthma, and a previous history of tobacco use. The patient was seen in the emergency department and admitted. We saw him in the emergency room, room 27. The patient denied any GI complaints. White count 10.1, hemoglobin 16.2, hematocrit 48.9, and platelet count 126,000. PT, INR, PTT, and d-dimer were all normal. Sodium 136, potassium, chloride, CO2, anion gap, BUN, and creatinine are all normal. Lactic acid was 2.3, repeat 1.4. AST 158, ALT 80. LDH 1295. C-reactive protein 17.1. COVID testing was positive. Chest x-ray, which we cannot see, consistent with diffuse bilateral infiltrates. The patient is unvaccinated. On 05/21/2021 patient seen in follow-up in medical surgical floor, since yesterday his oxygen demand has increased, he is currently at 60 L and FiO2 of 94%, in addition his been having to wear a nonrebreather mask on and off. On Airvo without the nonrebreather mask his pulse ox is ranging between 82-85%. Patient states he becomes especially short of breath with any exertion. But he is awake and alert, oriented 3, he has not been able to prone, he only tried it once, however he said his breathing got worse and he could not tolerate it, he was encouraged to at least reposition self from side to side. No fever, his vital signs have been stable other than worsening hypoxemia. Repeat chest x-ray has been obtained showing bilateral patchy infiltrates. Patient is on Decadron 6 mg twice daily, he was started on Baricitinib, is on prophylactic dose Lovenox 40 mg daily, and COVID vitamins. Today's lab work has been reviewed his white blood cell count is 13.8, hemoglobin is 14.9, d-dimer is pending, electrolytes were within normal limits, and his BUN is 24, creatinine is 0.91, his AST and ALT slightly improved and are down to 87 and 61 respectively, alkaline phosphatase is 77, his pro calcitonin level was increased at 1.83. Overall upon physical exam patient does not appear to be in any acute distress, he states he was able to taken at this morning, he felt better after that, denies any chest discomfort, he states he doesn't feel like his fatigued, does not appear to be using any accessory muscles of breathing. On 05/22/2021 patient seen in follow-up on medical surgical floor. He remains on Airvo at 60 L and FiO2 of 93% in addition to 100% nonrebreather mask, and his O2 saturations on both of those things are around 85-88%. Patient is not wearing nonrebreather mask continuously, he states is uncomfortable, he does not want to wear it. He is wearing only intermittently. CT chest was completed yesterday showing no evidence of pulmonary embolism, and extensive bilateral pneumonia. There is fatty infiltration of the liver. Yesterday's d-dimer was 0.7, its 0.40 on today's labs, LDH status 1046, relatively stable. He is on D ecadron 6 mg daily, he is on prophylactic Lovenox, had to discontinue his bare sitting up yesterday in view of his elevated pro calcitonin and possibility of developing bacterial superinfection. Blood cultures have been negative. Final cultures are pending. he has been afebrile, occasional cough, not bringing up any phlegm. Does not appear to be in any acute distress, although his pulse ox is around 83% on Airvo, patient states he does not want to be intubated and placed on mechanical ventilator, he wants to try to ride it out, patient states there is no way he is going on the ventilator so the hospital can make more money off him. There was a long discussion at the bedside explaining to the patient the importance of maintaining adequate oxygenation to prevent organ damage and failure. However the patient stated he would rather than go on the ventilator On 06/02/2001 patient seen in follow-up on medical surgical floor. He is awake and alert, in no acute distress, he is currently sitting up in the recliner, he has been alternating his Airvo with BiPAP support at night. He is currently on Airvo at 40 L and FiO2 of 60%, his pulse ox is 93%. He is afebrile, hemodynamically stable, no chest discomfort, he denies worsening dyspnea, although he is dyspneic with any exertion. His last chest x-ray is from 05/30/2021 showing stable bilateral multifocal pneumonia. Today's labs have been reviewed, his white blood cell count is 19.8, hemoglobin is 15.9, neutrophil count is 16.7, his electrolytes and renal profile were fairly unremarkable. he was retested for COVID-19 and was found to be negative and she can be removed out of isolation. His follow-up inflammatory markers are pending for today. His last d-dimer was 1.61 and that was on 05/30/2021. Patient continues on Decadron 6 mg IV push daily, he remains on Baricitinib, Symbicort, Ventolin inhaler, he is off the insulin infusion, he was started on Levemir 10 units at bedtime and sliding scale NovoLog and mealtime NovoLog. His blood sugars are better controlled, this morning his blood sugar was 95, then before lunch his blood sugar was 238. Denies any nausea vomiting or diarrhea. On 06/03/2021 patient seen in follow-up on medical surgical floor. Today she remains on Airvo, currently down to 35 L and FiO2 of 50%, he is breathing comfortable, his pulse ox is 92%, he is going on BiPAP support at night and is needed, he seems very comfortable, he is up in the chair, his is visiting. Was retested for COVID-19 yesterday on 06/02/2021 and he was found to be negative, no fever or chills. Vital signs have been stable, he is tolerating oral intake, no nausea vomiting or diarrhea. Today's chest x-ray shows bilateral airspace disease with similar appearance. Patient is currently on Decadron 6 mg daily, Lovenox 40 mg daily, Baricitinib, and COVID-19 vitamins. Objective - Vital Signs Vital signs: Vital Signs Temp 97.8 F 06/03/21 06:05 Pulse 90 06/03/21 06:05 Resp 17 06/03/21 06:05 BP 118/83 06/03/21 06:05 Pulse Ox 92 L 06/03/21 08:25 Intake & Output 06/02/21 06/03/21 06/03/21 18:59 06:59 18:59 Intake Total 600 360 637 Output Total 1150 Balance 600 -790 637 Intake: Oral 600 360 637 Output: Urine 1150 Other: Voiding Method Urinal Bedside Commode Bedside Commode Urinal Urinal # Voids 850 2 # Bowel Movements 2 - Exam GENERAL EXAM: Alert, 41-year-old male, on Airvo, at 35 L and FiO2 of 50%, with a pulse ox between 93%, patient alternates that with BiPAP support at bedtime HEAD: Normocephalic/atraumatic. EYES: Normal reaction of pupils, equal size. Conjunctiva pink, sclera white. NOSE: Clear with pink turbinates. THROAT: No erythema or exudates. NECK: No masses, no JVD, no thyroid enlargement, no adenopathy. CHEST: No chest wall deformity. Symmetrical expansion. LUNGS: Equal air entry with bibasilar crackles CVS: Regular rate and rhythm, normal S1 and S2, no gallops, no murmurs, no rubs ABDOMEN: Soft, nontender. No hepatosplenomegaly, normal bowel sounds, no guarding or rigidity. EXTREMITIES: No clubbing, no edema, no cyanosis, 2+ pulses and upper and lower extremities. MUSCULOSKELETAL: Muscle strength and tone normal. SPINE: No scoliosis or deformity SKIN: No rashes CENTRAL NERVOUS SYSTEM: Alert and oriented -3. No focal deficits, tone is normal in all 4 extremities. PSYCHIATRIC: Alert and oriented -3. Appropriate affect. Intact judgment and insight. - Labs CBC & Chem 7: 06/03/21 07:41 06/02/21 07:23 Labs: Abnormal Lab Results - Last 24 Hours (Table) 06/02/21 06/02/21 06/03/21 Range/Units 16:29 21:23 07:24 WBC (4.50-10.00) X 10*3/uL MCHC (32.0-37.0) g/dL Immature Gran # (0.00-0.04) X 10*3/uL Neutrophils # (1.80-7.70) X 10*3/uL Monocytes # (0.20-1.00) X 10*3/uL Eosinophils # (0.04-0.35) X 10*3/uL D-Dimer (<0.60) mg/L FEU POC Glucose (mg/dL) 299 H 235 H 112 H (75-99) mg/dL 06/03/21 06/03/21 06/03/21 Range/Units 07:41 07:41 11:48 WBC 18.59 H (4.50-10.00) X 10*3/uL MCHC 30.4 L (32.0-37.0) g/dL Immature Gran # 0.33 H (0.00-0.04) X 10*3/uL Neutrophils # 14.46 H (1.80-7.70) X 10*3/uL Monocytes # 1.98 H (0.20-1.00) X 10*3/uL Eosinophils # 0.02 L (0.04-0.35) X 10*3/uL D-Dimer 1.77 H (<0.60) mg/L FEU POC Glucose (mg/dL) 238 H (75-99) mg/dL Assessment and Plan Plan: Assessment: #1. Acute and severe hypoxic respiratory failure related to acute COVID-19 pneumonia, patient presented with one-week history of symptoms including shortness of breath, cough, fever. Patient is non-vaccinated. Status post monoclonal antibiotic infusion. Patient was not a candidate for Remdesivir while in the hospital, was started on Baricitinib on 05/20/2021. Baricitinib was discontinued yesterday on 05/21/2021 in view of elevated pro-calcitonin level suggesting presence of a bacterial infection and possibility of developing an overwhelming superinfection. All cultures were negative, infection was ruled out, and Baricitinib was restarted on 05/27/2021 #2. Former smoker #3. History of chronic bronchial asthma, unspecified #4. Elevated inflammatory markers related to COVID-19 infection, improving #5. Mild lactic acidosis, improved with IV hydration #6. Elevated pro-calcitonin level, all cultures were negative, underlying bacterial infection was ruled out, and patient was restarted on Baricitnib Plan: Patient continues to improve Continue current medical treatment Patient remains on Airvo, currently down to 35 L and FiO2 of 50%, alternating it with BiPAP support Continue BiPAP support as needed and at bedtime Continue Kvng, Dexamethasone, lovenox CXR shows stable findings, Inflammatory markers are pending, d-dimer is stable Continue current medical treatment I performed a history & physical examination of the patient and discussed their management with my nurse practitioner, Cady Ospina. I reviewed the nurse practitioner's note and agree with the documented findings and plan of care. Lung sounds are positive for throughout the lung saleh. The findings and the impression was discussed with the patient. I attest to the documentation by the nurse practitioner. Time with Patient: Less than 30
--- NOTE | 2021-06-03 16:14 | P.PN ---
Subjective Progress Note Date: 06/03/21 Acute hypoxemic respiratory failure COVID-19 pneumonia Lactic acidosis 41-year-old male with a known history of asthma and previous history of smoking presents to ER with complaints of worsening shortness of breath, cough and fever. Patient has been sick for the past 1 week. patient was febrile with T- max of 104.1 on admission and was tachycardic and tachypneic with pulse ox 85% on room air on admission. Patient was tested positive for COVID-19 infection in May 13, 2021. Patient was symptomatic for about 2 days prior to his test. Patient was taking [id number] medications and breathing status is not improving. Presented to ER due to worsening symptoms. On admission patient was hypoxic. Chest x-ray showed interval marked worsening appearance of the chest with bilateral multifocal areas of infiltrate suggestive of pneumonia. EKG showed sinus tachycardia. 05/24/2021 Patient is seen and evaluated and discussed with nursing staff; continues to require oxygen at 60 L with at bedtime and see with O2 saturation maintaining between 89-90% Vital signs are stable with temperature of 97.5, pulse 67, respiration 18 and blood pressure 163/67; O2 saturation 93% Lab review shows WBC 13.9, hemoglobin 16.4, platelet count of 333, BUN/cr eatinine of 32/1 Repeat chest x-ray revealed MILD improvement He is currently on AIRVO; counseling done on self proning for 4-6 hours during the day and 4-6 hours at night as tolerated; continue with Decadron, Lovenox, Symbicort and COVID-19 biotin vitamin cocktail; patient remains on Zosyn as recommended by pulmonary service 05/25/2021 Patient is evaluated and discussed with nursing staff; remains on O2 at 60 L with O2 saturation between 90-92% Vital signs are reviewed temperature 98.1, pulse 73, respirations 17 and blood pressure of 149/63 Patient remains on therapy with dexamethasone, Lovenox, vitamins; remains on empiric IV antibiotic therapy in form of Zosyn as recommended by pulmonary service Prognosis remains guarded 05/26/2021 Patient is seen and evaluated Patient is currently using 100% nonrebreather facemask in addition to high flow oxygen 6 L with an FiO2 of 90%. His breathing is nonlabored. Overnight he is using BiPAP for respiratory support. Is not clear to me if there is any superinfection. Despite a elevated pharmacy.pro-calcitonin level level, my overall suspicion for abacterial infection is quite low in this patient. ID is considering the possibility of adding Baricitinib; given concern about a superimposed bacterial infection and elevated procalcitonin level at 1.59, patient was given IV Zosyn. 05/27/2021 The patient is seen and evaluated and discussed with nursing staff; currently on Airvo at 6 L flow with a 90% FiO2. Pulse ox is around 91%. Vital signs are reviewed and stable with temperature of 97.8, pulse 96, respirations 16 and blood pressure 127/72 Blood glucose remains elevated but gradually improving; d-dimer is trending down and is 0.47 this morning Patient has been taken off the IV Zosyn by infectious disease due to lack of concern of superinfection at this point in time. The patient is going to be started on Baricitinib. Patient remains on Decadron 6 mg IV twice a day. 05/28/2021 Patient is seen and evaluated in room and discussed with nursing staff. Patient experienced difficulty overnight and found BIPAP mask off upon awakening in the morning. Patient had significant respiratory distress with pulse ox trending d ownward to the mid 70s. Patient is back on the BIPAP and is in no longer in severe distress as he experienced earlier. He is on a regimen of Decadron and Caricitinib. His WBC count remains at 19.8 however he still suffers from a component of lymphopenia. D-dimer is at 1.33, glucose at 219, and LDH is now 923 after re-evaluation after 2 days. Chest x ray which was conducted yesterday shows diffuse bilateral pulmonary infiltrates consistent with COVID pneumonia. Patient is also using a incentive spiromter, on symbicort, and using albuterol as needed. Antibiotics have been discontinued and patietn is afebrile, hemodynamically stable, no major chagnes other than pulse ox drop from this morning. 05/29/2021 Patient is seen and evaluated and discussed with the nursing staff; currently on Airvo with an FI02 of 90%. Pulse ox is around 88-91%. Vital signs are reviewed and stable and afebrile. Patient is hemodynamically stable. Patient states that he is feeling better than yesterday- patient does not seem to be in any type of stress nor is he anxious as he was yesterday. Patient's WBC count today was 23.09. Patient's current medication regimen remains a combination of Decadron and Baricitinib. No major or significant changes compared to yesterday. 05/30/2021 Patient is seen and evaluated and discussed with nursing staff. Patient had a follow up chest x ray which is showing improvement in the pulmonary infiltrations as compared to the chest x ray obtained previously. There is also improvement on aeration. Patient is now on Airvo with an FIO2 of 80%. Overnight patient is going to a BIPAP at a pressure of 10/5 and continues at the FiO2 of 100% on the BIPAP. WBC count has trended down from 23.09 to 17 today. Patient remains on current medication regimen of Decadron and Baricitinib. Patient's D- Dimer is 1.6. Rest of electrolytes are all within normal limits with no fever, chills, or signs of any infection. Patient is tolerating his diet and seems to be much more active. No further recommendations, continue with current care. No major significant changes or differences compared to yesterday. 05/31/2021 The patient was seen and evaluated and discussed with nursing staff. Patient is now sitting upright and is on high flow oxygen, Patient is on Airvo at 60 L & Fio2 is down to 70% Current pulse ox is 93%. He remains on his current medication of Decadron & Baricitinib. He is on lovenox for anticoagulation. He has no specific complaints today. His progression has been slow but we were able to decrease his FiO2 slowly over the past week. His WBC count is 17.8, Hb is 14.3, Creatinine is 0.8 , Na is 139, Inflammatory markers are dropped & his LDH is trending downwards. Patient has a good appetite. Patient has no fever or chills & is in good spirits. His pulse ox. desaturates with activity & then recovers faster 06/01/2021 Patient is seen and evaluated, and discussed with nursing staff. Currently, patient is improving he has been weaned off of Airvo down to 50L with an FiO2 of 70%. His pulse ox is at 93%. Patient remains on a regimen of Decadron, Baricitinib, and Levenox for anticoagulation. Patient is in no acute distress nor has any new complaints other than occasional dry cough. There is no significant sputum production, no fever, no chills, no nausea, no vomiting. Patient denies any abdominal pain. Currently, LDH levels are trending down significantly. The patient is gradually being weaned off his oxygen source but we are waiting for FiO2 to drop further. 06/02/2021 Patient is seen and evaluated in follow up this morning and continues on airvo with continued BIpap use at night. Pulmonary following closely and patient is currently receiving Baricitinib along with lovenox, IV dexamethasone, vitamin and zinc supplements. Blood sugars are elevated and will continue sliding scale and long acting along with pre-meal and will readjust. 06/03/2021 Patient is seen and evaluated in follow-up continues on Airvo is being titrated down currently. Settings are a flow rate of 40 and an FiO2 of 60 and maintaining oxygen saturations above 90%. Infectious disease and pulmonary following closely. Chest x-ray today shows an being consistent with Covid pneumonia with bilateral airspace disease similar in appearance. Labs: WBC is 18.59, hemoglobin 14.6, platelets are 335, sodium is 140, potassium is 4.1, creatinine is .8, repeat covid swab is not detected, d-dimer is 1.77, LDH is 293 and CRP is 8.5 Review of systems: Constitutional: No reports of fatigue, fever, or chills Cardiovascular: No reports of chest pain or palpitations Respiratory: No reports of worsening shortness of breath or cough GI: No reports of nausea, vomiting, or diarrhea : No reports of dysuria or retention Neurovascular: No reports of weakness, reports chronic lower back pain. All medications have been reviewed Active Medications Acetaminophen (Acetaminophen Tab 500 Mg Tab) 1,000 mg PO Q6HR PRN PRN Reason: Fever>101 Last Admin: 06/02/21 21:49 Dose: 1,000 mg Documented by: Acetaminophen (Acetaminophen Tab 325 Mg Tab) 650 mg PO Q6HR PRN PRN Reason: Fever and/ or Pain Albuterol Sulfate (Albuterol Hfa Inhaler) 2 puff INHALATION Q4HR PRN PRN Reason: Shortness Of Breath Or Wheezing Last Admin: 06/03/21 15:39 Dose: 2 puff Documented by: Ascorbic Acid (Ascorbic Acid 500 Mg Tab) 1,000 mg PO DAILY [facility] Last Admin: 06/03/21 08:04 Dose: 1,000 mg Documented by: Baricitinib (Baricitinib 2 Mg Tablet) 4 mg PO DAILY [facility] Stop: 06/07/21 09:01 Last Admin: 06/03/21 08:04 Dose: 4 mg Documented by: Budesonide/Formoterol Fumarate (Symbicort 160-4.5 Mcg Inhaler) 2 puff INHALATION RT-BID [facility] Last Admin: 06/03/21 08:25 Dose: 2 puff Documented by: Cholecalciferol (Cholecalciferol 25 Mcg (1000 Iu) Tablet) 25 mcg PO DAILY [facility] Last Admin: 06/03/21 08:04 Dose: 25 mcg Documented by: Dexamethasone Sodium Phosphate (Dexamethasone Sod Phosphate 10 Mg/Ml 1 Ml Vial) 6 mg IV DAILY [facility] Last Admin: 06/03/21 08:03 Dose: 6 mg Documented by: Enoxaparin Sodium (Enoxaparin 40 Mg/0.4 Ml Syringe) 40 mg SQ DAILY [facility] Last Admin: 06/03/21 08:05 Dose: 40 mg Documented by: Insulin Aspart (Insulin Aspart (Novolog) 100 Unit/Ml Vial) 0 unit SQ ACHS [facility]; Protocol Last Admin: 06/03/21 13:07 Dose: 5 unit Documented by: Insulin Aspart (Insulin Aspart (Novolog) 100 Unit/Ml Vial) 5 unit SQ AC-TID [facility]; Protocol Last Admin: 06/03/21 13:07 Dose: 5 unit Documented by: Insulin Detemir (Insulin Detemir (Levemir) 100 Unit/Ml Syr) 10 unit SQ HS [facility] Last Admin: 06/02/21 21:48 Dose: 10 unit Documented by: Zinc Sulfate (Zinc Sulfate 220 Mg Cap) 220 mg PO DAILY [facility] Last Admin: 06/03/21 08:04 Dose: 220 mg Documented by: Physical exam: GENERAL: The patient is alert and oriented x3, not in any acute distress. Well developed, well nourished. HEENT: Pupils are round and equally reacting to light. EOMI. No scleral icterus. No conjunctival pallor. Normocephalic, atraumatic. No pharyngeal erythema. No thyromegaly. CARDIOVASCULAR: S1 and S2 present. No murmurs, rubs, or gallops. PULMONARY: Chest is clear to auscultation, no wheezing or crackles. ABDOMEN: Soft, nontender, nondistended, normoactive bowel sounds. No palpable organomegaly. MUSCULOSKELETAL: No joint swelling or deformity. EXTREMITIES: No cyanosis, clubbing, or pedal edema. NEUROLOGICAL: Gross neurological examination did not reveal any focal deficits. SKIN: No rashes. Assessment: -Acute hypoxic respiratory failure secondary to COVID-19 pneumonia, pulmonary and infectious disease following, continue Baricitinib, lovenox, albuterol, vitamin, zinc, and IV dexamethasone therapy, repeat chest xray and inflammatory markers in the am -Lactic acidosis; possibly related to COVID-19 infection and dehydration, improved -hyperglycemia, most likely steroid induced; possible new-onset diabetes with hemoglobin A1c of 8.1, continue with sliding scale, long acting, and will increase pre-meal insulin, continue consistent carb diet -Hypomagnesemia; resolved -Asthma; not in exacerbation; continue with inhaler therapy -DVT prophylaxis; SCDs/subcutaneous lovenox -full code Objective - Vital Signs Vital signs: Vital Signs Temp 97.8 F 06/03/21 06:05 Pulse 90 06/03/21 06:05 Resp 17 06/03/21 06:05 BP 118/83 06/03/21 06:05 Pulse Ox 92 L 06/03/21 08:25 Intake & Output 06/02/21 06/03/21 06/03/21 18:59 06:59 18:59 Intake Total 600 360 637 Output Total 1150 Balance 600 -790 637 Intake: Oral 600 360 637 Output: Urine 1150 Other: Voiding Method Urinal Bedside Commode Urinal # Voids 850 2 # Bowel Movements 2 - Labs CBC & Chem 7: 06/03/21 07:41 06/03/21 07:50 Labs: Abnormal Lab Results - Last 24 Hours (Table) 06/02/21 06/02/21 06/02/21 Range/Units 11:58 16:29 21:23 D-Dimer (<0.60) mg/L FEU POC Glucose (mg/dL) 238 H 299 H 235 H (75-99) mg/dL 06/03/21 06/03/21 Range/Units 07:24 07:41 D-Dimer 1.77 H (<0.60) mg/L FEU POC Glucose (mg/dL) 112 H (75-99) mg/dL
[2021-06-03 16:57] LABS: Glucose,Whole Blood 243 mg/dL (75-99)
[2021-06-03 20:41] LABS: Glucose,Whole Blood 188 mg/dL (75-99)
[2021-06-03] MEDS: INSULIN DETEMIR (LEVEMIR) 100 UNIT/ML SYR SQ SCH (20:41)
--- NOTE | 2021-06-03 23:04 | PN ---
PROGRESS NOTE DATE OF SERVICE: 06/03/2021 REASON FOR FOLLOWUP: COVID-19 pneumonia. INTERVAL HISTORY: The patient is afebrile. The patient is breathing more comfortably patient denies having any chest pain or worsening cough. No nausea, no vomiting. No abdominal pain or diarrhea. PHYSICAL EXAMINATION: Blood pressure 119/74, pulse of 72, temperature 97.9. He is 94% on 35% FiO2. General description is a middle-aged male up in a chair in no distress. RESPIRATORY SYSTEM: Unlabored breathing. Decreased intensity of breath sounds. No wheeze. HEART: S1, S2. Regular rate and rhythm. ABDOMEN: Soft. No tenderness. LABS: Hemoglobin is 14.6, white count 18.5. is 1.77. CRP is 8.50. DIAGNOSTIC IMPRESSION AND PLAN: 1. Patient with acute COVID-19 pneumonia in this patient who is slowly clinically improving. Patient is currently covered with baricitinib, decadron, Lovenox, zinc, ascorbic acid; to continue. 2. Patient with elevated white count, more likely steroid effect and no evidence of any secondary bacterial pneumonia. MMODL / IJN: [id number] /
[2021-06-04 06:51] LABS: Glucose,Whole Blood 124 mg/dL (75-99)
[2021-06-04] MEDS: INSULIN ASPART (NovoLOG) 100 UNIT/ML VIAL SQ SCH ×7 (07:04→20:47)
[2021-06-04] MEDS: DEXAMETHASONE SOD PHOSPHATE 10 MG/ML 1 ML VIAL IV SCH (07:57)
[2021-06-04] MEDS: ENOXAPARIN 40 MG/0.4 ML SYRINGE SQ SCH (07:57)
[2021-06-04] MEDS: CHOLECALCIFEROL 25 MCG (1000 IU) TABLET PO SCH (07:58)
[2021-06-04] MEDS: ASCORBIC ACID 500 MG TAB PO SCH (07:58)
[2021-06-04] MEDS: ZINC SULFATE 220 MG CAP PO SCH (07:58)
[2021-06-04] MEDS: BARICITINIB 2 MG TABLET PO SCH (08:00)
[2021-06-04] MEDS: ALBUTEROL HFA INHALER INHALATION PRN ×4 (08:41→21:23)
[2021-06-04] MEDS: SYMBICORT 160-4.5 MCG INHALER INHALATION SCH ×2 (08:41→21:23)
[2021-06-04 11:31] LABS: Glucose,Whole Blood 207 mg/dL (75-99)
--- NOTE | 2021-06-04 13:11 | P.PN ---
Subjective Progress Note Date: 06/04/21 Principal diagnosis: Dyspnea, cough, hypoxia, pneumonia 41-year-old male presents to the emergency department on May 19, complaining of chest pain, shortness of breath, fever, soreness, and cough. The patient apparently states that he was tested positive for coronavirus on May 13. He was actually sick one or 2 days prior to that. The patient came to the emergency room because his symptoms continued to get worse, and were not getting any better. The patient is on 10 L high flow nasal O2. Not receiving any IV fluids. The patient does apparently have a history of asthma, and a previous history of tobacco use. The patient was seen in the emergency department and admitted. We saw him in the emergency room, room 27. The patient denied any GI complaints. White count 10.1, hemoglobin 16.2, hematocrit 48.9, and platelet count 126,000. PT, INR, PTT, and d-dimer were all normal. Sodium 136, potassium, chloride, CO2, anion gap, BUN, and creatinine are all normal. Lactic acid was 2.3, repeat 1.4. AST 158, ALT 80. LDH 1295. C-reactive protein 17.1. COVID testing was positive. Chest x-ray, which we cannot see, consistent with diffuse bilateral infiltrates. The patient is unvaccinated. On 05/21/2021 patient seen in follow-up in medical surgical floor, since yesterday his oxygen demand has increased, he is currently at 60 L and FiO2 of 94%, in addition his been having to wear a nonrebreather mask on and off. On Airvo without the nonrebreather mask his pulse ox is ranging between 82-85%. Patient states he becomes especially short of breath with any exertion. But he is awake and alert, oriented 3, he has not been able to prone, he only tried it once, however he said his breathing got worse and he could not tolerate it, he was encouraged to at least reposition self from side to side. No fever, his vital signs have been stable other than worsening hypoxemia. Repeat chest x-ray has been obtained showing bilateral patchy infiltrates. Patient is on Decadron 6 mg twice daily, he was started on Baricitinib, is on prophylactic dose Lovenox 40 mg daily, and COVID vitamins. Today's lab work has been reviewed his white blood cell count is 13.8, hemoglobin is 14.9, d-dimer is pending, electrolytes were within normal limits, and his BUN is 24, creatinine is 0.91, his AST and ALT slightly improved and are down to 87 and 61 respectively, alkaline phosphatase is 77, his pro calcitonin level was increased at 1.83. Overall upon physical exam patient does not appear to be in any acute distress, he states he was able to taken at this morning, he felt better after that, denies any chest discomfort, he states he doesn't feel like his fatigued, does not appear to be using any accessory muscles of breathing. On 05/22/2021 patient seen in follow-up on medical surgical floor. He remains on Airvo at 60 L and FiO2 of 93% in addition to 100% nonrebreather mask, and his O2 saturations on both of those things are around 85-88%. Patient is not wearing nonrebreather mask continuously, he states is uncomfortable, he does not want to wear it. He is wearing only intermittently. CT chest was completed yesterday showing no evidence of pulmonary embolism, and extensive bilateral pneumonia. There is fatty infiltration of the liver. Yesterday's d-dimer was 0.7, its 0.40 on today's labs, LDH status 1046, relatively stable. He is on D ecadron 6 mg daily, he is on prophylactic Lovenox, had to discontinue his bare sitting up yesterday in view of his elevated pro calcitonin and possibility of developing bacterial superinfection. Blood cultures have been negative. Final cultures are pending. he has been afebrile, occasional cough, not bringing up any phlegm. Does not appear to be in any acute distress, although his pulse ox is around 83% on Airvo, patient states he does not want to be intubated and placed on mechanical ventilator, he wants to try to ride it out, patient states there is no way he is going on the ventilator so the hospital can make more money off him. There was a long discussion at the bedside explaining to the patient the importance of maintaining adequate oxygenation to prevent organ damage and failure. However the patient stated he would rather than go on the ventilator On 06/02/2001 patient seen in follow-up on medical surgical floor. He is awake and alert, in no acute distress, he is currently sitting up in the recliner, he has been alternating his Airvo with BiPAP support at night. He is currently on Airvo at 40 L and FiO2 of 60%, his pulse ox is 93%. He is afebrile, hemodynamically stable, no chest discomfort, he denies worsening dyspnea, although he is dyspneic with any exertion. His last chest x-ray is from 05/30/2021 showing stable bilateral multifocal pneumonia. Today's labs have been reviewed, his white blood cell count is 19.8, hemoglobin is 15.9, neutrophil count is 16.7, his electrolytes and renal profile were fairly unremarkable. he was retested for COVID-19 and was found to be negative and she can be removed out of isolation. His follow-up inflammatory markers are pending for today. His last d-dimer was 1.61 and that was on 05/30/2021. Patient continues on Decadron 6 mg IV push daily, he remains on Baricitinib, Symbicort, Ventolin inhaler, he is off the insulin infusion, he was started on Levemir 10 units at bedtime and sliding scale NovoLog and mealtime NovoLog. His blood sugars are better controlled, this morning his blood sugar was 95, then before lunch his blood sugar was 238. Denies any nausea vomiting or diarrhea. On 06/03/2021 patient seen in follow-up on medical surgical floor. Today she remains on Airvo, currently down to 35 L and FiO2 of 50%, he is breathing comfortable, his pulse ox is 92%, he is going on BiPAP support at night and is needed, he seems very comfortable, he is up in the chair, his is visiting. Was retested for COVID-19 yesterday on 06/02/2021 and he was found to be negative, no fever or chills. Vital signs have been stable, he is tolerating oral intake, no nausea vomiting or diarrhea. Today's chest x-ray shows bilateral airspace disease with similar appearance. Patient is currently on Decadron 6 mg daily, Lovenox 40 mg daily, Baricitinib, and COVID-19 vitamins. On 06/04/2021 patient seen in follow-up on medical surgical floor, today he is on Airvo 35 L and FiO2 of 40%, his pulse ox is 88-89%. Breathing comfortably, she sits up in the recliner, his is at his bedside. Patient is awake and alert, oriented 3, denies any worsening dyspnea, he does have occasional cough, no chest discomfort. His last chest x-ray yesterday showed bilateral airspace disease with similar appearance, stable in appearance. No acute events overnight, he remains on Decadron 6 mg daily, Lovenox 40 mg daily, Baricitinib, and COVID-19 vitamins. Appetite is fair. No nausea vomiting or diarrhea and no abdominal pain. Objective - Vital Signs Vital signs: Vital Signs Temp 97.9 F 06/04/21 08:00 Pulse 66 06/04/21 08:00 Resp 16 06/04/21 08:00 BP 121/79 06/04/21 08:00 Pulse Ox 91 L 06/04/21 12:42 Intake & Output 06/03/21 06/04/21 06/04/21 18:59 06:59 18:59 Intake Total 1109 480 236 Output Total 1360 800 Balance 1109 -880 -564 Weight 122.924 kg Intake: Oral 1109 480 236 Output: Urine 1360 800 Other: Voiding Method Bedside Commode Bedside Commode Urinal Urinal Urinal # Voids 1 2 2 # Bowel Movements 1 - Exam GENERAL EXAM: Alert, 41-year-old male, on Airvo, at 35 L and FiO2 of 40%, with a pulse ox between 88-91%, patient alternates that with BiPAP support at bedtime HEAD: Normocephalic/atraumatic. EYES: Normal reaction of pupils, equal size. Conjunctiva pink, sclera white. NOSE: Clear with pink turbinates. THROAT: No erythema or exudates. NECK: No masses, no JVD, no thyroid enlargement, no adenopathy. CHEST: No chest wall deformity. Symmetrical expansion. LUNGS: Equal air entry with bibasilar crackles CVS: Regular rate and rhythm, normal S1 and S2, no gallops, no murmurs, no rubs ABDOMEN: Soft, nontender. No hepatosplenomegaly, normal bowel sounds, no guarding or rigidity. EXTREMITIES: No clubbing, no edema, no cyanosis, 2+ pulses and upper and lower extremities. MUSCULOSKELETAL: Muscle strength and tone normal. SPINE: No scoliosis or deformity SKIN: No rashes CENTRAL NERVOUS SYSTEM: Alert and oriented -3. No focal deficits, tone is normal in all 4 extremities. PSYCHIATRIC: Alert and oriented -3. Appropriate affect. Intact judgment and insight. - Labs CBC & Chem 7: 06/03/21 07:41 06/03/21 07:50 Labs: Abnormal Lab Results - Last 24 Hours (Table) 06/03/21 06/03/21 06/03/21 Range/Units 07:50 16:55 20:39 Anion Gap 13.70 H (4.00-12.00) mmol/L Glucose 135 H (70-110) mg/dL POC Glucose (mg/dL) 243 H 188 H (75-99) mg/dL Lactate Dehydrogenase 293 H (120-246) U/L C-Reactive Protein 8.50 H (0.00-0.80) mg/dL 06/04/21 06/04/21 Range/Units 06:50 11:30 Anion Gap (4.00-12.00) mmol/L Glucose (70-110) mg/dL POC Glucose (mg/dL) 124 H 207 H (75-99) mg/dL Lactate Dehydrogenase (120-246) U/L C-Reactive Protein (0.00-0.80) mg/dL Assessment and Plan Plan: Assessment: #1. Acute and severe hypoxic respiratory failure related to acute COVID-19 pneumonia, patient presented with one-week history of symptoms including shortness of breath, cough, fever. Patient is non-vaccinated. Status post monoclonal antibiotic infusion. Patient was not a candidate for Remdesivir while in the hospital, was started on Baricitinib on 05/20/2021. Baricitinib was discontinued yesterday on 05/21/2021 in view of elevated pro-calcitonin level suggesting presence of a bacterial infection and possibility of developing an overwhelming superinfection. All cultures were negative, infection was ruled out, and Baricitinib was restarted on 05/27/2021 #2. Former smoker #3. History of chronic bronchial asthma, unspecified #4. Elevated inflammatory markers related to COVID-19 infection, improving #5. Mild lactic acidosis, improved with IV hydration #6. Elevated pro-calcitonin level, all cultures were negative, underlying bacterial infection was ruled out, and patient was restarted on Baricitnib Plan: Patient continues to improve Continue current medical treatment Patient remains on Airvo, currently down to 35 L and FiO2 of 40%, alternating it with BiPAP support Patient will be trialed on high flow nasal cannula at 15 L, once FiO2 requirements are down to 5 L or less patient may be considered for discharge home Continue Kvng, Dexamethasone, lovenox Follow-up inflammatory markers tomorrow Continue current medical treatment I performed a history & physical examination of the patient and discussed their management with my nurse practitioner, Cady Ospina. I reviewed the nurse practitioner's note and agree with the documented findings and plan of care. Lung sounds are positive for throughout the lung saleh. The findings and the impression was discussed with the patient. I attest to the documentation by the nurse practitioner. Time with Patient: Less than 30
--- NOTE | 2021-06-04 14:43 | P.PN ---
Subjective Progress Note Date: 06/04/21 Acute hypoxemic respiratory failure COVID-19 pneumonia Lactic acidosis 41-year-old male with a known history of asthma and previous history of smoking presents to ER with complaints of worsening shortness of breath, cough and fever. Patient has been sick for the past 1 week. patient was febrile with T- max of 104.1 on admission and was tachycardic and tachypneic with pulse ox 85% on room air on admission. Patient was tested positive for COVID-19 infection in May 13, 2021. Patient was symptomatic for about 2 days prior to his test. Patient was taking [id number] medications and breathing status is not improving. Presented to ER due to worsening symptoms. On admission patient was hypoxic. Chest x-ray showed interval marked worsening appearance of the chest with bilateral multifocal areas of infiltrate suggestive of pneumonia. EKG showed sinus tachycardia. 05/24/2021 Patient is seen and evaluated and discussed with nursing staff; continues to require oxygen at 60 L with at bedtime and see with O2 saturation maintaining between 89-90% Vital signs are stable with temperature of 97.5, pulse 67, respiration 18 and blood pressure 163/67; O2 saturation 93% Lab review shows WBC 13.9, hemoglobin 16.4, platelet count of 333, BUN/cr eatinine of 32/1 Repeat chest x-ray revealed MILD improvement He is currently on AIRVO; counseling done on self proning for 4-6 hours during the day and 4-6 hours at night as tolerated; continue with Decadron, Lovenox, Symbicort and COVID-19 biotin vitamin cocktail; patient remains on Zosyn as recommended by pulmonary service 05/25/2021 Patient is evaluated and discussed with nursing staff; remains on O2 at 60 L with O2 saturation between 90-92% Vital signs are reviewed temperature 98.1, pulse 73, respirations 17 and blood pressure of 149/63 Patient remains on therapy with dexamethasone, Lovenox, vitamins; remains on empiric IV antibiotic therapy in form of Zosyn as recommended by pulmonary service Prognosis remains guarded 05/26/2021 Patient is seen and evaluated Patient is currently using 100% nonrebreather facemask in addition to high flow oxygen 6 L with an FiO2 of 90%. His breathing is nonlabored. Overnight he is using BiPAP for respiratory support. Is not clear to me if there is any superinfection. Despite a elevated pharmacy.pro-calcitonin level level, my overall suspicion for abacterial infection is quite low in this patient. ID is considering the possibility of adding Baricitinib; given concern about a superimposed bacterial infection and elevated procalcitonin level at 1.59, patient was given IV Zosyn. 05/27/2021 The patient is seen and evaluated and discussed with nursing staff; currently on Airvo at 6 L flow with a 90% FiO2. Pulse ox is around 91%. Vital signs are reviewed and stable with temperature of 97.8, pulse 96, respirations 16 and blood pressure 127/72 Blood glucose remains elevated but gradually improving; d-dimer is trending down and is 0.47 this morning Patient has been taken off the IV Zosyn by infectious disease due to lack of concern of superinfection at this point in time. The patient is going to be started on Baricitinib. Patient remains on Decadron 6 mg IV twice a day. 05/28/2021 Patient is seen and evaluated in room and discussed with nursing staff. Patient experienced difficulty overnight and found BIPAP mask off upon awakening in the morning. Patient had significant respiratory distress with pulse ox trending d ownward to the mid 70s. Patient is back on the BIPAP and is in no longer in severe distress as he experienced earlier. He is on a regimen of Decadron and Caricitinib. His WBC count remains at 19.8 however he still suffers from a component of lymphopenia. D-dimer is at 1.33, glucose at 219, and LDH is now 923 after re-evaluation after 2 days. Chest x ray which was conducted yesterday shows diffuse bilateral pulmonary infiltrates consistent with COVID pneumonia. Patient is also using a incentive spiromter, on symbicort, and using albuterol as needed. Antibiotics have been discontinued and patietn is afebrile, hemodynamically stable, no major chagnes other than pulse ox drop from this morning. 05/29/2021 Patient is seen and evaluated and discussed with the nursing staff; currently on Airvo with an FI02 of 90%. Pulse ox is around 88-91%. Vital signs are reviewed and stable and afebrile. Patient is hemodynamically stable. Patient states that he is feeling better than yesterday- patient does not seem to be in any type of stress nor is he anxious as he was yesterday. Patient's WBC count today was 23.09. Patient's current medication regimen remains a combination of Decadron and Baricitinib. No major or significant changes compared to yesterday. 05/30/2021 Patient is seen and evaluated and discussed with nursing staff. Patient had a follow up chest x ray which is showing improvement in the pulmonary infiltrations as compared to the chest x ray obtained previously. There is also improvement on aeration. Patient is now on Airvo with an FIO2 of 80%. Overnight patient is going to a BIPAP at a pressure of 10/5 and continues at the FiO2 of 100% on the BIPAP. WBC count has trended down from 23.09 to 17 today. Patient remains on current medication regimen of Decadron and Baricitinib. Patient's D- Dimer is 1.6. Rest of electrolytes are all within normal limits with no fever, chills, or signs of any infection. Patient is tolerating his diet and seems to be much more active. No further recommendations, continue with current care. No major significant changes or differences compared to yesterday. 05/31/2021 The patient was seen and evaluated and discussed with nursing staff. Patient is now sitting upright and is on high flow oxygen, Patient is on Airvo at 60 L & Fio2 is down to 70% Current pulse ox is 93%. He remains on his current medication of Decadron & Baricitinib. He is on lovenox for anticoagulation. He has no specific complaints today. His progression has been slow but we were able to decrease his FiO2 slowly over the past week. His WBC count is 17.8, Hb is 14.3, Creatinine is 0.8 , Na is 139, Inflammatory markers are dropped & his LDH is trending downwards. Patient has a good appetite. Patient has no fever or chills & is in good spirits. His pulse ox. desaturates with activity & then recovers faster 06/01/2021 Patient is seen and evaluated, and discussed with nursing staff. Currently, patient is improving he has been weaned off of Airvo down to 50L with an FiO2 of 70%. His pulse ox is at 93%. Patient remains on a regimen of Decadron, Baricitinib, and Levenox for anticoagulation. Patient is in no acute distress nor has any new complaints other than occasional dry cough. There is no significant sputum production, no fever, no chills, no nausea, no vomiting. Patient denies any abdominal pain. Currently, LDH levels are trending down significantly. The patient is gradually being weaned off his oxygen source but we are waiting for FiO2 to drop further. 06/02/2021 Patient is seen and evaluated in follow up this morning and continues on airvo with continued BIpap use at night. Pulmonary following closely and patient is currently receiving Baricitinib along with lovenox, IV dexamethasone, vitamin and zinc supplements. Blood sugars are elevated and will continue sliding scale and long acting along with pre-meal and will readjust. 06/03/2021 Patient is seen and evaluated in follow-up continues on Airvo is being titrated down currently. Settings are a flow rate of 40 and an FiO2 of 60 and maintaining oxygen saturations above 90%. Infectious disease and pulmonary following closely. Chest x-ray today shows an being consistent with Covid pneumonia with bilateral airspace disease similar in appearance. 06/04/2021 Patient is seen and evaluated in follow-up this morning states he had a rough evening and morning after being titrated and continues on Airvo And BiPAP at night. Flow rate is 35 and FiO2 is 40%. Pulmonary following closely. Patient maintaining oxygen saturations of 89% and continuing to wean as tolerated. Daysi ent states he does feel the effect when weaning the oxygen although is persistent about continuing to wean as he wants to go home. Blood sugars continue to be elevated and will increase the long-acting and continue with pre- meal and sliding scale as needed. Encouraged consistent carb diet and close monitoring of intake. Will repeat chest x-ray and labs in the morning. Review of systems: Constitutional: No reports of fatigue, fever, or chills Cardiovascular: No reports of chest pain or palpitations Respiratory:Reports worsening shortness of breathas they have been steadily titrating down his oxygen GI: No reports of nausea, vomiting, or diarrhea : No reports of dysuria or retention Neurovascular: No reports of weakness, reports chronic lower back pain. All medications have been reviewed Active Medications Acetaminophen (Acetaminophen Tab 500 Mg Tab) 1,000 mg PO Q6HR PRN PRN Reason: Fever>101 Last Admin: 06/02/21 21:49 Dose: 1,000 mg Documented by: Acetaminophen (Acetaminophen Tab 325 Mg Tab) 650 mg PO Q6HR PRN PRN Reason: Fever and/ or Pain Albuterol Sulfate (Albuterol Hfa Inhaler) 2 puff INHALATION Q4HR PRN PRN Reason: Shortness Of Breath Or Wheezing Last Admin: 06/04/21 12:21 Dose: 2 puff Documented by: Ascorbic Acid (Ascorbic Acid 500 Mg Tab) 1,000 mg PO DAILY [facility] Last Admin: 06/04/21 07:58 Dose: 1,000 mg Documented by: Baricitinib (Baricitinib 2 Mg Tablet) 4 mg PO DAILY [facility] Stop: 06/07/21 09:01 Last Admin: 06/04/21 08:00 Dose: 4 mg Documented by: Budesonide/Formoterol Fumarate (Symbicort 160-4.5 Mcg Inhaler) 2 puff INHALATION RT-BID [facility] Last Admin: 06/04/21 08:41 Dose: 2 puff Documented by: Cholecalciferol (Cholecalciferol 25 Mcg (1000 Iu) Tablet) 25 mcg PO DAILY [facility] Last Admin: 06/04/21 07:58 Dose: 25 mcg Documented by: Dexamethasone Sodium Phosphate (Dexamethasone Sod Phosphate 10 Mg/Ml 1 Ml Vial) 6 mg IV DAILY [facility] Last Admin: 06/04/21 07:57 Dose: 6 mg Documented by: Enoxaparin Sodium (Enoxaparin 40 Mg/0.4 Ml Syringe) 40 mg SQ DAILY [facility] Last Admin: 06/04/21 07:57 Dose: 40 mg Documented by: Insulin Aspart (Insulin Aspart (Novolog) 100 Unit/Ml Vial) 0 unit SQ ACHS [facility]; Protocol Last Admin: 06/04/21 12:00 Dose: 4 unit Documented by: Insulin Aspart (Insulin Aspart (Novolog) 100 Unit/Ml Vial) 5 unit SQ AC-TID [facility]; Protocol Last Admin: 06/04/21 12:00 Dose: 5 unit Documented by: Insulin Detemir (Insulin Detemir (Levemir) 100 Unit/Ml Syr) 13 unit SQ HS [facility] Zinc Sulfate (Zinc Sulfate 220 Mg Cap) 220 mg PO DAILY [facility] Last Admin: 06/04/21 07:58 Dose: 220 mg Documented by: Physical exam: GENERAL: The patient is alert and oriented x3, not in any acute distress. Well developed, well nourished. HEENT: Pupils are round and equally reacting to light. EOMI. No scleral icterus. No conjunctival pallor. Normocephalic, atraumatic. No pharyngeal erythema. No thyromegaly. CARDIOVASCULAR: S1 and S2 present. No murmurs, rubs, or gallops. PULMONARY: Chest is clear to auscultation, no wheezing or crackles. Coarse rhonchi noted at the bases. ABDOMEN: Soft, nontender, nondistended, normoactive bowel sounds. No palpable organomegaly. MUSCULOSKELETAL: No joint swelling or deformity. EXTREMITIES: No cyanosis, clubbing, or pedal edema. NEUROLOGICAL: Gross neurological examination did not reveal any focal deficits. SKIN: No rashes. Assessment: -Acute hypoxic respiratory failure secondary to COVID-19 pneumonia, pulmonary and infectious disease following, continue Baricitinib day 9 of , lovenox, albuterol, vitamin, zinc, and IV dexamethasone therapy, repeat chest xray and inflammatory markers in the am -Lactic acidosis; possibly related to COVID-19 infection and dehydration, improved -hyperglycemia, most likely steroid induced; possible new-onset diabetes with hemoglobin A1c of 8.1, continue with sliding scale,pre-meal, and will increase long acting slightly -Hypomagnesemia; resolved -Asthma; not in exacerbation; continue with inhaler therapy -DVT prophylaxis; SCDs/subcutaneous lovenox -full code Plan: Recommend continue with current medications and pulmonary following closely. Patient is continued on Baricitinib along with IV dexamethasone, Lovenox, vitamin and zinc supplements and will continue. Recommend to continue weaning FiO2 as tolerated. Encouraged incentive spirometer at the bedside at least 10 times every hour while awake. Encouraged increased activity as tolerated. Recommend continue Accu-Cheks before meals and at bedtime and will need close outpatient follow-up with primary care provider once off of steroids to discuss diabetic medications. Objective - Vital Signs Vital signs: Vital Signs Temp 97.9 F 06/04/21 08:00 Pulse 66 06/04/21 08:00 Resp 16 06/04/21 08:00 BP 121/79 06/04/21 08:00 Pulse Ox 89 L 06/04/21 08:42 Intake & Output 06/03/21 06/04/21 06/04/21 18:59 06:59 18:59 Intake Total 1109 480 236 Output Total 1360 Balance 1109 -880 236 Weight 122.924 kg Intake: Oral 1109 480 236 Output: Urine 1360 Other: Voiding Method Bedside Commode Bedside Commode Urinal Urinal # Voids 1 2 # Bowel Movements 1 - Labs CBC & Chem 7: 06/03/21 07:41 06/03/21 07:50 Labs: Abnormal Lab Results - Last 24 Hours (Table) 06/03/21 06/03/21 06/03/21 Range/Units 07:41 07:50 11:48 WBC 18.59 H (4.50-10.00) X 10*3/uL MCHC 30.4 L (32.0-37.0) g/dL Immature Gran # 0.33 H (0.00-0.04) X 10*3/uL Neutrophils # 14.46 H (1.80-7.70) X 10*3/uL Monocytes # 1.98 H (0.20-1.00) X 10*3/uL Eosinophils # 0.02 L (0.04-0.35) X 10*3/uL Anion Gap 13.70 H (4.00-12.00) mmol/L Glucose 135 H (70-110) mg/dL POC Glucose (mg/dL) 238 H (75-99) mg/dL Lactate Dehydrogenase 293 H (120-246) U/L C-Reactive Protein 8.50 H (0.00-0.80) mg/dL 06/03/21 06/03/21 06/04/21 Range/Units 16:55 20:39 06:50 WBC (4.50-10.00) X 10*3/uL MCHC (32.0-37.0) g/dL Immature Gran # (0.00-0.04) X 10*3/uL Neutrophils # (1.80-7.70) X 10*3/uL Monocytes # (0.20-1.00) X 10*3/uL Eosinophils # (0.04-0.35) X 10*3/uL Anion Gap (4.00-12.00) mmol/L Glucose (70-110) mg/dL POC Glucose (mg/dL) 243 H 188 H 124 H (75-99) mg/dL Lactate Dehydrogenase (120-246) U/L C-Reactive Protein (0.00-0.80) mg/dL
[2021-06-04 16:31] LABS: Glucose,Whole Blood 386 mg/dL (75-99)
[2021-06-04 20:35] LABS: Glucose,Whole Blood 291 mg/dL (75-99)
[2021-06-04] MEDS: INSULIN DETEMIR (LEVEMIR) 100 UNIT/ML SYR SQ SCH (20:47)
--- NOTE | 2021-06-04 23:28 | PN ---
PROGRESS NOTE DATE OF SERVICE: 06/04/2021 REASON FOR FOLLOWUP: COVID-19 pneumonia. INTERVAL HISTORY: The patient is afebrile. The patient is breathing comfortably. The patient is currently on nasal cannula oxygen. Denies having any chest pain or worsening cough. No nausea, no vomiting. No abdominal pain or diarrhea. PHYSICAL EXAMINATION: Blood pressure 121/79, pulse of 66, temperature 97.9. He is 91% on nasal cannula oxygen. General description is a middle-aged male up in the chair in no distress. RESPIRATORY SYSTEM: Unlabored breathing with few crackles at the base. No wheeze. HEART: S1, S2. Regular rate and rhythm. ABDOMEN: Soft. No tenderness. EXTREMITIES: No edema of the feet. LABS: No new labs have been obtained today. DIAGNOSTIC IMPRESSION AND PLAN: Patient with acute COVID-19 pneumonia in this patient who seems to have shown some clinical improvement. The patient is currently covered with baricitinib, dexamethasone, zinc, ascorbic acid; to continue along with respiratory support and encourage incentive spirometry. Monitor his clinical course closely. MMODL / IJN: [id number] /
[2021-06-05 07:12] LABS: Glucose,Whole Blood 110 mg/dL (75-99)
[2021-06-05] MEDS: INSULIN ASPART (NovoLOG) 100 UNIT/ML VIAL SQ SCH ×7 (07:17→21:28)
[2021-06-05] MEDS: ZINC SULFATE 220 MG CAP PO SCH (08:37)
[2021-06-05] MEDS: ASCORBIC ACID 500 MG TAB PO SCH (08:37)
[2021-06-05] MEDS: CHOLECALCIFEROL 25 MCG (1000 IU) TABLET PO SCH (08:37)
[2021-06-05] MEDS: DEXAMETHASONE SOD PHOSPHATE 10 MG/ML 1 ML VIAL IV SCH (08:37)
[2021-06-05] MEDS: BARICITINIB 2 MG TABLET PO SCH (08:38)
[2021-06-05] MEDS: ENOXAPARIN 40 MG/0.4 ML SYRINGE SQ SCH (08:38)
[2021-06-05] MEDS: ALBUTEROL HFA INHALER INHALATION PRN ×4 (09:14→21:33)
[2021-06-05] MEDS: SYMBICORT 160-4.5 MCG INHALER INHALATION SCH ×2 (09:14→21:32)
--- NOTE | 2021-06-05 09:38 | XR ---
EXAMINATION TYPE: XR chest 1V portable DATE OF EXAM: 06/05/2021 COMPARISON: Chest x-ray 06/03/2021 HISTORY: Shortness of breath, Covid TECHNIQUE: Single frontal view of the chest is obtained. FINDINGS: Bilateral airspace disease has become somewhat less confluent in the right upper lobe. The re is no evident pneumothorax or pleural effusion. Cardiomediastinal [place] is stable. IMPRESSION: Findings consistent with patient's history of Covid pneumonia
[2021-06-05 10:47] LABS: Basophils # (A) 0.1 k/uL (0-0.2); Basophils % (A) 0 %; Eosinophils # (A) 0.1 k/uL (0-0.7); Eosinophils % (A) 1 %; HCT 45.9 % (39.0-53.0); HGB 14.6 gm/dL (13.0-17.5); Lymphocytes # (A) 1.6 k/uL (1.0-4.8); Lymphocytes % (A) 10 %; MCH 29.2 pg (25.0-35.0); MCHC 31.9 g/dL (31.0-37.0); MCV 91.5 fL (80.0-100.0); Mean Platelet Volume 8.1; Monocytes % (A) 6 %; Neutrophils # (A) 12.6 k/uL (1.3-7.7); Neutrophils % (A) 81 %; Platelet Count 278 k/uL (150-450); RBC 5.02 m/uL (4.30-5.90); RDW 13.3 % (11.5-15.5); WBC 15.5 k/uL (3.8-10.6)
[2021-06-05 11:01] LABS: African American GFR (CKD) >90 (>60 ml/min/1.73 sqM); Anion Gap 10 mmol/L; Blood Urea Nitrogen 20 mg/dL (9-20); Calcium 9.4 mg/dL (8.4-10.2); Carbon Dioxide 23 mmol/L (22-30); Chloride 103 mmol/L (98-107); Glucose 158 mg/dL (74-99); LDH 956 U/L (313-618); Non-African American GFR(CKD) >90 (>60 ml/min/1.73 sqM); Potassium 4.4 mmol/L (3.5-5.1); Sodium 136 mmol/L (137-145)
[2021-06-05 11:27] LABS: Glucose,Whole Blood 162 mg/dL (75-99)
[2021-06-05 12:03] LABS: C Reactive Protein 3.3 mg/dL (<1.0)
--- NOTE | 2021-06-05 14:09 | P.PN ---
Subjective Progress Note Date: 06/05/21 Acute hypoxemic respiratory failure COVID-19 pneumonia Lactic acidosis 41-year-old male with a known history of asthma and previous history of smoking presents to ER with complaints of worsening shortness of breath, cough and fever. Patient has been sick for the past 1 week. patient was febrile with T- max of 104.1 on admission and was tachycardic and tachypneic with pulse ox 85% on room air on admission. Patient was tested positive for COVID-19 infection in May 13, 2021. Patient was symptomatic for about 2 days prior to his test. Patient was taking [id number] medications and breathing status is not improving. Presented to ER due to worsening symptoms. On admission patient was hypoxic. Chest x-ray showed interval marked worsening appearance of the chest with bilateral multifocal areas of infiltrate suggestive of pneumonia. EKG showed sinus tachycardia. 05/24/2021 Patient is seen and evaluated and discussed with nursing staff; continues to require oxygen at 60 L with at bedtime and see with O2 saturation maintaining between 89-90% Vital signs are stable with temperature of 97.5, pulse 67, respiration 18 and blood pressure 163/67; O2 saturation 93% Lab review shows WBC 13.9, hemoglobin 16.4, platelet count of 333, BUN/cr eatinine of 32/1 Repeat chest x-ray revealed MILD improvement He is currently on AIRVO; counseling done on self proning for 4-6 hours during the day and 4-6 hours at night as tolerated; continue with Decadron, Lovenox, Symbicort and COVID-19 biotin vitamin cocktail; patient remains on Zosyn as recommended by pulmonary service 05/25/2021 Patient is evaluated and discussed with nursing staff; remains on O2 at 60 L with O2 saturation between 90-92% Vital signs are reviewed temperature 98.1, pulse 73, respirations 17 and blood pressure of 149/63 Patient remains on therapy with dexamethasone, Lovenox, vitamins; remains on empiric IV antibiotic therapy in form of Zosyn as recommended by pulmonary service Prognosis remains guarded 05/26/2021 Patient is seen and evaluated Patient is currently using 100% nonrebreather facemask in addition to high flow oxygen 6 L with an FiO2 of 90%. His breathing is nonlabored. Overnight he is using BiPAP for respiratory support. Is not clear to me if there is any superinfection. Despite a elevated pharmacy.pro-calcitonin level level, my overall suspicion for abacterial infection is quite low in this patient. ID is considering the possibility of adding Baricitinib; given concern about a superimposed bacterial infection and elevated procalcitonin level at 1.59, patient was given IV Zosyn. 05/27/2021 The patient is seen and evaluated and discussed with nursing staff; currently on Airvo at 6 L flow with a 90% FiO2. Pulse ox is around 91%. Vital signs are reviewed and stable with temperature of 97.8, pulse 96, respirations 16 and blood pressure 127/72 Blood glucose remains elevated but gradually improving; d-dimer is trending down and is 0.47 this morning Patient has been taken off the IV Zosyn by infectious disease due to lack of concern of superinfection at this point in time. The patient is going to be started on Baricitinib. Patient remains on Decadron 6 mg IV twice a day. 05/28/2021 Patient is seen and evaluated in room and discussed with nursing staff. Patient experienced difficulty overnight and found BIPAP mask off upon awakening in the morning. Patient had significant respiratory distress with pulse ox trending d ownward to the mid 70s. Patient is back on the BIPAP and is in no longer in severe distress as he experienced earlier. He is on a regimen of Decadron and Caricitinib. His WBC count remains at 19.8 however he still suffers from a component of lymphopenia. D-dimer is at 1.33, glucose at 219, and LDH is now 923 after re-evaluation after 2 days. Chest x ray which was conducted yesterday shows diffuse bilateral pulmonary infiltrates consistent with COVID pneumonia. Patient is also using a incentive spiromter, on symbicort, and using albuterol as needed. Antibiotics have been discontinued and patietn is afebrile, hemodynamically stable, no major chagnes other than pulse ox drop from this morning. 05/29/2021 Patient is seen and evaluated and discussed with the nursing staff; currently on Airvo with an FI02 of 90%. Pulse ox is around 88-91%. Vital signs are reviewed and stable and afebrile. Patient is hemodynamically stable. Patient states that he is feeling better than yesterday- patient does not seem to be in any type of stress nor is he anxious as he was yesterday. Patient's WBC count today was 23.09. Patient's current medication regimen remains a combination of Decadron and Baricitinib. No major or significant changes compared to yesterday. 05/30/2021 Patient is seen and evaluated and discussed with nursing staff. Patient had a follow up chest x ray which is showing improvement in the pulmonary infiltrations as compared to the chest x ray obtained previously. There is also improvement on aeration. Patient is now on Airvo with an FIO2 of 80%. Overnight patient is going to a BIPAP at a pressure of 10/5 and continues at the FiO2 of 100% on the BIPAP. WBC count has trended down from 23.09 to 17 today. Patient remains on current medication regimen of Decadron and Baricitinib. Patient's D- Dimer is 1.6. Rest of electrolytes are all within normal limits with no fever, chills, or signs of any infection. Patient is tolerating his diet and seems to be much more active. No further recommendations, continue with current care. No major significant changes or differences compared to yesterday. 05/31/2021 The patient was seen and evaluated and discussed with nursing staff. Patient is now sitting upright and is on high flow oxygen, Patient is on Airvo at 60 L & Fio2 is down to 70% Current pulse ox is 93%. He remains on his current medication of Decadron & Baricitinib. He is on lovenox for anticoagulation. He has no specific complaints today. His progression has been slow but we were able to decrease his FiO2 slowly over the past week. His WBC count is 17.8, Hb is 14.3, Creatinine is 0.8 , Na is 139, Inflammatory markers are dropped & his LDH is trending downwards. Patient has a good appetite. Patient has no fever or chills & is in good spirits. His pulse ox. desaturates with activity & then recovers faster 06/01/2021 Patient is seen and evaluated, and discussed with nursing staff. Currently, patient is improving he has been weaned off of Airvo down to 50L with an FiO2 of 70%. His pulse ox is at 93%. Patient remains on a regimen of Decadron, Baricitinib, and Levenox for anticoagulation. Patient is in no acute distress nor has any new complaints other than occasional dry cough. There is no significant sputum production, no fever, no chills, no nausea, no vomiting. Patient denies any abdominal pain. Currently, LDH levels are trending down significantly. The patient is gradually being weaned off his oxygen source but we are waiting for FiO2 to drop further. 06/02/2021 Patient is seen and evaluated in follow up this morning and continues on airvo with continued BIpap use at night. Pulmonary following closely and patient is currently receiving Baricitinib along with lovenox, IV dexamethasone, vitamin and zinc supplements. Blood sugars are elevated and will continue sliding scale and long acting along with pre-meal and will readjust. 06/03/2021 Patient is seen and evaluated in follow-up continues on Airvo is being titrated down currently. Settings are a flow rate of 40 and an FiO2 of 60 and maintaining oxygen saturations above 90%. Infectious disease and pulmonary following closely. Chest x-ray today shows an being consistent with Covid pneumonia with bilateral airspace disease similar in appearance. 06/04/2021 Patient is seen and evaluated in follow-up this morning states he had a rough evening and morning after being titrated and continues on Airvo And BiPAP at night. Flow rate is 35 and FiO2 is 40%. Pulmonary following closely. Patient maintaining oxygen saturations of 89% and continuing to wean as tolerated. Daysi ent states he does feel the effect when weaning the oxygen although is persistent about continuing to wean as he wants to go home. Blood sugars continue to be elevated and will increase the long-acting and continue with pre- meal and sliding scale as needed. Encouraged consistent carb diet and close monitoring of intake. Will repeat chest x-ray and labs in the morning. 06/05/2021 Patient is seen and evaluated in follow-up this morning continues to be sitting in the chair as he states he has chronic back pain and unable to tolerate lying in bed. Pulmonary following closely and patient is maintained on 15 L high flow via nasal cannula and maintaining oxygen saturations above 90%. Patient continues to request aggressive FiO2 weaning as he wants to go home tomorrow. Nursing staff states he is now on 13 L high flow and tolerating. Patient continues on IV dexamethasone along with Baricitinib, Lovenox vitamin and zinc supplements and will continue. Chest x-ray shows findings consistent with COVID-19 pneumonia as bilateral airspace disease has become somewhat less confluent in the right upper lobe. Labs: White blood count is 15.5, hemoglobin is 14.6, platelets are 278, sodium is 136, potassium 4.4, creatinine 0.75, LDH is 956, CRP is 3.3. Review of systems: Constitutional: No reports of fatigue, fever, or chills Cardiovascular: No reports of chest pain or palpitations Respiratory:Reports improving shortness of breath and continues with cough that is dry GI: No reports of nausea, vomiting, or diarrhea : No reports of dysuria or retention Neurovascular: No reports of weakness, reports chronic lower back pain. All medications have been reviewed Active Medications Acetaminophen (Acetaminophen Tab 500 Mg Tab) 1,000 mg PO Q6HR PRN PRN Reason: Fever>101 Last Admin: 06/02/21 21:49 Dose: 1,000 mg Documented by: Acetaminophen (Acetaminophen Tab 325 Mg Tab) 650 mg PO Q6HR PRN PRN Reason: Fever and/ or Pain Albuterol Sulfate (Albuterol Hfa Inhaler) 2 puff INHALATION Q4HR PRN PRN Reason: Shortness Of Breath Or Wheezing Last Admin: 06/05/21 12:10 Dose: 2 puff Documented by: Ascorbic Acid (Ascorbic Acid 500 Mg Tab) 1,000 mg PO DAILY [facility] Last Admin: 06/05/21 08:37 Dose: 1,000 mg Documented by: Baricitinib (Baricitinib 2 Mg Tablet) 4 mg PO DAILY [facility] Stop: 06/07/21 09:01 Last Admin: 06/05/21 08:38 Dose: 4 mg Documented by: Budesonide/Formoterol Fumarate (Symbicort 160-4.5 Mcg Inhaler) 2 puff INHALATION RT-BID [facility] Last Admin: 06/05/21 09:14 Dose: 2 puff Documented by: Cholecalciferol (Cholecalciferol 25 Mcg (1000 Iu) Tablet) 25 mcg PO DAILY [facility] Last Admin: 06/05/21 08:37 Dose: 25 mcg Documented by: Dexamethasone Sodium Phosphate (Dexamethasone Sod Phosphate 10 Mg/Ml 1 Ml Vial) 6 mg IV DAILY [facility] Last Admin: 06/05/21 08:37 Dose: 6 mg Documented by: Enoxaparin Sodium (Enoxaparin 40 Mg/0.4 Ml Syringe) 40 mg SQ DAILY [facility] Last Admin: 06/05/21 08:38 Dose: 40 mg Documented by: Insulin Aspart (Insulin Aspart (Novolog) 100 Unit/Ml Vial) 0 unit SQ ACHS [facility]; Protocol Last Admin: 06/05/21 12:24 Dose: 2 unit Documented by: Insulin Aspart (Insulin Aspart (Novolog) 100 Unit/Ml Vial) 5 unit SQ AC-TID [facility]; Protocol Last Admin: 06/05/21 12:24 Dose: 5 unit Documented by: Insulin Detemir (Insulin Detemir (Levemir) 100 Unit/Ml Syr) 13 unit SQ HS [facility] Last Admin: 06/04/21 20:47 Dose: 13 unit Documented by: Zinc Sulfate (Zinc Sulfate 220 Mg Cap) 220 mg PO DAILY [facility] Last Admin: 06/05/21 08:37 Dose: 220 mg Documented by: Physical exam: GENERAL: The patient is alert and oriented x3, not in any acute distress. Well developed, well nourished. HEENT: Pupils are round and equally reacting to light. EOMI. No scleral icterus. No conjunctival pallor. Normocephalic, atraumatic. No pharyngeal erythema. No thyromegaly. CARDIOVASCULAR: S1 and S2 present. No murmurs, rubs, or gallops. PULMONARY: Chest is clear to auscultation, no wheezing or crackles. Coarse rhonchi noted at the bases. ABDOMEN: Soft, nontender, nondistended, normoactive bowel sounds. No palpable organomegaly. MUSCULOSKELETAL: No joint swelling or deformity. EXTREMITIES: No cyanosis, clubbing, or pedal edema. NEUROLOGICAL: Gross neurological examination did not reveal any focal deficits. SKIN: No rashes. Assessment: -Acute hypoxic respiratory failure secondary to COVID-19 pneumonia, pulmonary and infectious disease following, continue Baricitinib day 10 of 12, lovenox, albuterol, vitamin, zinc, and IV dexamethasone therapy, currently on 8 L high flow now and titrating -Lactic acidosis; possibly related to COVID-19 infection and dehydration, improved -hyperglycemia, possibly steroid induced; possible new-onset diabetes with hemoglobin A1c of 8.1, continue with sliding scale,pre-meal, and will increase long acting slightly -Hypomagnesemia; resolved -Asthma; not in exacerbation; continue with inhaler therapy -DVT prophylaxis; SCDs/subcutaneous lovenox -full code Plan: Recommend continue with current medications and pulmonary following closely. Patient is continued on Baricitinib along with IV dexamethasone, Lovenox, vitamin and zinc supplements and will continue. Recommend to continue weaning FiO2 as tolerated. Encouraged incentive spirometer at the bedside at least 10 times every hour while awake. Encouraged increased activity as tolerated. Recommend continue Accu-Cheks before meals and at bedtime and will need close outpatient follow-up with primary care provider once off of steroids to discuss diabetic medications. Patient aggressively weaning FiO2 as tolerated and cur rently on 8 L high flow with no BiPAP use at night. Patient states he would like to go home tomorrow. Will discuss with pulmonary. Objective - Vital Signs Vital signs: Vital Signs Temp 97.5 F L 06/05/21 08:00 Pulse 63 06/05/21 08:00 Resp 20 06/05/21 08:00 BP 126/86 06/05/21 08:00 Pulse Ox 93 L 06/05/21 08:00 Intake & Output 06/04/21 06/05/21 06/05/21 18:59 06:59 18:59 Intake Total 708 Output Total 800 Balance -92 Intake: Oral 708 Output: Urine 800 Other: Voiding Method Urinal # Voids 1 3 - Labs CBC & Chem 7: 06/05/21 09:44 06/05/21 09:44 Labs: Abnormal Lab Results - Last 24 Hours (Table) 06/04/21 06/04/21 06/04/21 Range/Units 11:30 16:29 20:33 POC Glucose (mg/dL) 207 H 386 H 291 H (75-99) mg/dL 06/05/21 Range/Units 07:09 POC Glucose (mg/dL) 110 H (75-99) mg/dL
--- NOTE | 2021-06-05 14:22 | P.PN ---
Subjective Progress Note Date: 06/05/21 Principal diagnosis: Dyspnea, cough, hypoxia, pneumonia 41-year-old male presents to the emergency department on May 19, complaining of chest pain, shortness of breath, fever, soreness, and cough. The patient apparently states that he was tested positive for coronavirus on May 13. He was actually sick one or 2 days prior to that. The patient came to the emergency room because his symptoms continued to get worse, and were not getting any better. The patient is on 10 L high flow nasal O2. Not receiving any IV fluids. The patient does apparently have a history of asthma, and a previous history of tobacco use. The patient was seen in the emergency department and admitted. We saw him in the emergency room, room 27. The patient denied any GI complaints. White count 10.1, hemoglobin 16.2, hematocrit 48.9, and platelet count 126,000. PT, INR, PTT, and d-dimer were all normal. Sodium 136, potassium, chloride, CO2, anion gap, BUN, and creatinine are all normal. Lactic acid was 2.3, repeat 1.4. AST 158, ALT 80. LDH 1295. C-reactive protein 17.1. COVID testing was positive. Chest x-ray, which we cannot see, consistent with diffuse bilateral infiltrates. The patient is unvaccinated. On 05/21/2021 patient seen in follow-up in medical surgical floor, since yesterday his oxygen demand has increased, he is currently at 60 L and FiO2 of 94%, in addition his been having to wear a nonrebreather mask on and off. On Airvo without the nonrebreather mask his pulse ox is ranging between 82-85%. Patient states he becomes especially short of breath with any exertion. But he is awake and alert, oriented 3, he has not been able to prone, he only tried it once, however he said his breathing got worse and he could not tolerate it, he was encouraged to at least reposition self from side to side. No fever, his vital signs have been stable other than worsening hypoxemia. Repeat chest x-ray has been obtained showing bilateral patchy infiltrates. Patient is on Decadron 6 mg twice daily, he was started on Baricitinib, is on prophylactic dose Lovenox 40 mg daily, and COVID vitamins. Today's lab work has been reviewed his white blood cell count is 13.8, hemoglobin is 14.9, d-dimer is pending, electrolytes were within normal limits, and his BUN is 24, creatinine is 0.91, his AST and ALT slightly improved and are down to 87 and 61 respectively, alkaline phosphatase is 77, his pro calcitonin level was increased at 1.83. Overall upon physical exam patient does not appear to be in any acute distress, he states he was able to taken at this morning, he felt better after that, denies any chest discomfort, he states he doesn't feel like his fatigued, does not appear to be using any accessory muscles of breathing. On 05/22/2021 patient seen in follow-up on medical surgical floor. He remains on Airvo at 60 L and FiO2 of 93% in addition to 100% nonrebreather mask, and his O2 saturations on both of those things are around 85-88%. Patient is not wearing nonrebreather mask continuously, he states is uncomfortable, he does not want to wear it. He is wearing only intermittently. CT chest was completed yesterday showing no evidence of pulmonary embolism, and extensive bilateral pneumonia. There is fatty infiltration of the liver. Yesterday's d-dimer was 0.7, its 0.40 on today's labs, LDH status 1046, relatively stable. He is on D ecadron 6 mg daily, he is on prophylactic Lovenox, had to discontinue his bare sitting up yesterday in view of his elevated pro calcitonin and possibility of developing bacterial superinfection. Blood cultures have been negative. Final cultures are pending. he has been afebrile, occasional cough, not bringing up any phlegm. Does not appear to be in any acute distress, although his pulse ox is around 83% on Airvo, patient states he does not want to be intubated and placed on mechanical ventilator, he wants to try to ride it out, patient states there is no way he is going on the ventilator so the hospital can make more money off him. There was a long discussion at the bedside explaining to the patient the importance of maintaining adequate oxygenation to prevent organ damage and failure. However the patient stated he would rather than go on the ventilator On 06/02/2001 patient seen in follow-up on medical surgical floor. He is awake and alert, in no acute distress, he is currently sitting up in the recliner, he has been alternating his Airvo with BiPAP support at night. He is currently on Airvo at 40 L and FiO2 of 60%, his pulse ox is 93%. He is afebrile, hemodynamically stable, no chest discomfort, he denies worsening dyspnea, although he is dyspneic with any exertion. His last chest x-ray is from 05/30/2021 showing stable bilateral multifocal pneumonia. Today's labs have been reviewed, his white blood cell count is 19.8, hemoglobin is 15.9, neutrophil count is 16.7, his electrolytes and renal profile were fairly unremarkable. he was retested for COVID-19 and was found to be negative and she can be removed out of isolation. His follow-up inflammatory markers are pending for today. His last d-dimer was 1.61 and that was on 05/30/2021. Patient continues on Decadron 6 mg IV push daily, he remains on Baricitinib, Symbicort, Ventolin inhaler, he is off the insulin infusion, he was started on Levemir 10 units at bedtime and sliding scale NovoLog and mealtime NovoLog. His blood sugars are better controlled, this morning his blood sugar was 95, then before lunch his blood sugar was 238. Denies any nausea vomiting or diarrhea. On 06/03/2021 patient seen in follow-up on medical surgical floor. Today she remains on Airvo, currently down to 35 L and FiO2 of 50%, he is breathing comfortable, his pulse ox is 92%, he is going on BiPAP support at night and is needed, he seems very comfortable, he is up in the chair, his is visiting. Was retested for COVID-19 yesterday on 06/02/2021 and he was found to be negative, no fever or chills. Vital signs have been stable, he is tolerating oral intake, no nausea vomiting or diarrhea. Today's chest x-ray shows bilateral airspace disease with similar appearance. Patient is currently on Decadron 6 mg daily, Lovenox 40 mg daily, Baricitinib, and COVID-19 vitamins. On 06/04/2021 patient seen in follow-up on medical surgical floor, today he is on Airvo 35 L and FiO2 of 40%, his pulse ox is 88-89%. Breathing comfortably, she sits up in the recliner, his is at his bedside. Patient is awake and alert, oriented 3, denies any worsening dyspnea, he does have occasional cough, no chest discomfort. His last chest x-ray yesterday showed bilateral airspace disease with similar appearance, stable in appearance. No acute events overnight, he remains on Decadron 6 mg daily, Lovenox 40 mg daily, Baricitinib, and COVID-19 vitamins. Appetite is fair. No nausea vomiting or diarrhea and no abdominal pain. On 06/05/2021 patient seen in follow-up on a general medical surgical floor. He is doing well, he states today is a good day, he is up in the shower, we switched him from Airvo to high flow nasal cannula yesterday, he is tolerating it well so far, he is currently on 13 L of oxygen pulse ox is 89%, afebrile, hemodynamically stable, follow-up chest x-ray today shows bilateral airspace disease seems to be less confluent in the right upper lobe. Labs have been reviewed, white blood cell count is improving and is down to 15.5, hemoglobin is 14.6, electrolytes and renal profile are within normal limits. LDH is 956, increased from his most recent value of 293 on 06/03/2021 however overall improved since admission, his CRP is improving and is down to 3.3. All his cultures including blood cultures and sputum cultures remain negative. Patient remains on Decadron 6 mg daily, Lovenox 40 mg daily, Baricitinib, and COVID-19 vitamins Objective - Vital Signs Vital signs: Vital Signs Temp 97.5 F L 06/05/21 08:00 Pulse 63 06/05/21 08:00 Resp 20 06/05/21 08:40 BP 126/86 06/05/21 08:00 Pulse Ox 90 L 06/05/21 12:10 Intake & Output 06/04/21 06/05/21 06/05/21 18:59 06:59 18:59 Intake Total 708 Output Total 800 Balance -92 Intake: Oral 708 Output: Urine 800 Other: Voiding Method Urinal # Voids 1 3 - Exam GENERAL EXAM: Alert, 41-year-old male, on 13 L of high flow nasal cannula with a pulse ox of 89% HEAD: Normocephalic/atraumatic. EYES: Normal reaction of pupils, equal size. Conjunctiva pink, sclera white. NOSE: Clear with pink turbinates. THROAT: No erythema or exudates. NECK: No masses, no JVD, no thyroid enlargement, no adenopathy. CHEST: No chest wall deformity. Symmetrical expansion. LUNGS: Equal air entry with bibasilar crackles CVS: Regular rate and rhythm, normal S1 and S2, no gallops, no murmurs, no rubs ABDOMEN: Soft, nontender. No hepatosplenomegaly, normal bowel sounds, no guarding or rigidity. EXTREMITIES: No clubbing, no edema, no cyanosis, 2+ pulses and upper and lower extremities. MUSCULOSKELETAL: Muscle strength and tone normal. SPINE: No scoliosis or deformity SKIN: No rashes CENTRAL NERVOUS SYSTEM: Alert and oriented -3. No focal deficits, tone is normal in all 4 extremities. PSYCHIATRIC: Alert and oriented -3. Appropriate affect. Intact judgment and i nsight. - Labs CBC & Chem 7: 06/05/21 09:44 06/05/21 09:44 Labs: Abnormal Lab Results - Last 24 Hours (Table) 06/04/21 06/04/21 06/05/21 Range/Units 16:29 20:33 07:09 WBC (3.8-10.6) k/uL Neutrophils # (1.3-7.7) k/uL Sodium (137-145) mmol/L Glucose (74-99) mg/dL POC Glucose (mg/dL) 386 H 291 H 110 H (75-99) mg/dL Lactate Dehydrogenase (313-618) U/L C-Reactive Protein (<1.0) mg/dL 06/05/21 06/05/21 06/05/21 Range/Units 09:44 09:44 11:19 WBC 15.5 H (3.8-10.6) k/uL Neutrophils # 12.6 H (1.3-7.7) k/uL Sodium 136 L (137-145) mmol/L Glucose 158 H (74-99) mg/dL POC Glucose (mg/dL) 162 H (75-99) mg/dL Lactate Dehydrogenase 956 H (313-618) U/L C-Reactive Protein 3.3 H (<1.0) mg/dL Assessment and Plan Plan: Assessment: #1. Acute and severe hypoxic respiratory failure related to acute COVID-19 pneumonia, patient presented with one-week history of symptoms including shortness of breath, cough, fever. Patient is non-vaccinated. Status post monoclonal antibiotic infusion. Patient was not a candidate for Remdesivir while in the hospital, was started on Baricitinib on 05/20/2021. Baricitinib was discontinued yesterday on 05/21/2021 in view of elevated pro-calcitonin level suggesting presence of a bacterial infection and possibility of developing an overwhelming superinfection. All cultures were negative, infection was ruled out, and Baricitinib was restarted on 05/27/2021 #2. Former smoker #3. History of chronic bronchial asthma, unspecified #4. Elevated inflammatory markers related to COVID-19 infection, improving #5. Mild lactic acidosis, improved with IV hydration #6. Elevated pro-calcitonin level, all cultures were negative, underlying bacterial infection was ruled out, and patient was restarted on Baricitnib Plan: Patient continues to improve FiO2 is currently down to 13 L Continue to wean FiO2 to maintain O2 saturations at or above 90% Patient may continue to use BiPAP support at bedtime and as needed, however he has not used it in the last 24 hours Continue current medical treatment Once FiO2 requirements are down to 5 L or less patient may be considered for discharge home Continue Kvng, Dexamethasone, lovenox I performed a history & physical examination of the patient and discussed their management with my nurse practitioner, Cady Ospina. I reviewed the nurse practitioner's note and agree with the documented findings and plan of care. Lung sounds are positive for throughout the lung saleh. The findings and the impression was discussed with the patient. I attest to the documentation by the nurse practitioner. Time with Patient: Less than 30
[2021-06-05 15:33] VITALS: RESP 18
[2021-06-05 17:06] LABS: Glucose,Whole Blood 506 mg/dL (75-99)
[2021-06-05 17:06] LABS: Glucose,Whole Blood 493 mg/dL (75-99)
--- NOTE | 2021-06-05 19:52 | PN ---
PROGRESS NOTE DATE OF SERVICE: 06/05/2021 REASON FOR FOLLOWUP: COVID-19 pneumonia. INTERVAL HISTORY: Patient is afebrile. The patient is currently breathing comfortably on nasal cannula oxygen. The patient denies having any chest pain. No worsening cough. No abdominal pain and no diarrhea. PHYSICAL EXAMINATION: Blood pressure is 146/91 with a pulse of 75, temperature is 98.7. He is 94% on 8 L nasal cannula. General description is a middle-aged male up in the bed in no distress. Respiratory system: Unlabored breathing, decreased intensity of breath sounds, no wheeze. Heart S1, S2. Regular rate and rhythm. Abdomen soft, no tenderness. LABS: Hemoglobin is 14, white count 15.5, creatinine 0.75. IMPRESSION/PLAN: Patient with acute respiratory failure secondary to COVID-19 infection in this patient who has shown overall clinical improvement. The patient is currently on baricitinib, dexamethasone, zinc, ascorbic acid and Lovenox to continue along with respiratory support and monitor clinical course closely. MMODL / IJN: [id number] /
[2021-06-05] MEDS: INSULIN DETEMIR (LEVEMIR) 100 UNIT/ML SYR SQ SCH (21:28)
[2021-06-05 21:30] LABS: Glucose,Whole Blood 263 mg/dL (75-99)
[2021-06-06 06:46] LABS: Glucose,Whole Blood 122 mg/dL (75-99)
[2021-06-06] MEDS: INSULIN ASPART (NovoLOG) 100 UNIT/ML VIAL SQ SCH ×4 (07:51→12:30)
[2021-06-06] MEDS: ASCORBIC ACID 500 MG TAB PO SCH (08:06)
[2021-06-06] MEDS: ZINC SULFATE 220 MG CAP PO SCH (08:06)
[2021-06-06] MEDS: CHOLECALCIFEROL 25 MCG (1000 IU) TABLET PO SCH (08:06)
[2021-06-06] MEDS: ENOXAPARIN 40 MG/0.4 ML SYRINGE SQ SCH (08:06)
[2021-06-06] MEDS: BARICITINIB 2 MG TABLET PO SCH (08:07)
[2021-06-06] MEDS: DEXAMETHASONE SOD PHOSPHATE 10 MG/ML 1 ML VIAL IV SCH (08:07)
[2021-06-06] MEDS: SYMBICORT 160-4.5 MCG INHALER INHALATION SCH (08:16)
[2021-06-06] MEDS: ALBUTEROL HFA INHALER INHALATION PRN ×2 (08:16→12:29)
[2021-06-06 08:50] VITALS: BP 149/74; PULSE 84; TEMP 97.7
[2021-06-06 11:51] LABS: Glucose,Whole Blood 269 mg/dL (75-99)
--- NOTE | 2021-06-06 12:21 | P.PN ---
Subjective Progress Note Date: 06/06/21 Principal diagnosis: COVID-19 pneumonia The patient is seen today in 06/06/2021 in follow-up on the regular medical floor. He is currently sitting up in a chair at the bedside. Awake and alert in no acute distress. He is currently down to 5 L high flow nasal cannula and maintaining O2 saturations in the low 90s. No worsening shortness of breath, cough or congestion. No fever, chills or night sweats. Chest x-ray had revealed retained aeration in the right upper lobe. He does have bilateral airspace disease consistent with COVID-19 pneumonia. Sputum culture reveals no growth. Blood cultures revealed no growth. Blood glucose 269. LDH is down to 95 6. C-reactive protein 3.3. He's been on Symbicort and albuterol. Treated with Baricitinib. Anticoagulated with Lovenox. Remained on Decadron and vitamin supplements. He is quite adamant about going home today. Objective - Vital Signs Vital signs: Vital Signs Temp 97.7 F 06/06/21 07:30 Pulse 84 06/06/21 07:30 Resp 18 06/06/21 07:30 BP 149/74 06/06/21 07:30 Pulse Ox 89 L 06/06/21 08:16 Intake & Output 06/05/21 06/06/21 06/06/21 18:59 06:59 18:59 Other: # Voids 3 2 - Exam GENERAL EXAM: Alert, active, 41-year-old gentleman, on 5 L high flow nasal cannula comfortable in no apparent distress. HEAD: Normocephalic. EYES: Normal reaction of pupils, equal size. NOSE: Clear with pink turbinates. THROAT: No erythema or exudates. NECK: No masses, no JVD. CHEST: No chest wall deformity. LUNGS: Equal air entry with crackles in the bilateral bases. CVS: S1 and S2 normal with no audible murmur, regular rhythm. ABDOMEN: No hepatosplenomegaly, normal bowel sounds, no guarding or rigidity. SPINE: No scoliosis or deformity SKIN: No rashes CENTRAL NERVOUS SYSTEM: No focal deficits, tone is normal in all 4 extremities. EXTREMITIES: There is no peripheral edema. No clubbing, no cyanosis. Peripheral pulses are intact. - Labs CBC & Chem 7: 06/05/21 09:44 06/05/21 09:44 Labs: Abnormal Lab Results - Last 24 Hours (Table) 06/05/21 06/05/21 06/05/21 Range/Units 17:03 17:04 21:24 POC Glucose (mg/dL) 506 H 493 H 263 H (75-99) mg/dL 06/06/21 06/06/21 Range/Units 06:43 11:33 POC Glucose (mg/dL) 122 H 269 H (75-99) mg/dL Assessment and Plan Assessment: 1 Acute and severe hypoxic respiratory failure related to acute COVID-19 pneumonia, patient presented with one-week history of symptoms including shortness of breath, cough, fever. Patient is non-vaccinated. Status post monoclonal antibiotic infusion. Patient was not a candidate for Remdesivir while in the hospital, was started on Baricitinib on 05/20/2021. Baricitinib was discontinued on 05/21/2021 in view of elevated pro-calcitonin level suggesting presence of a bacterial infection and possibility of developing an overwhelming superinfection. All cultures were negative, infection was ruled out, and Baricitinib was restarted on 05/27/2021 2 Former smoker 3 History of chronic bronchial asthma, unspecified 4 Elevated inflammatory markers related to COVID-19 infection, improving 5 Mild lactic acidosis, improved with IV hydration 6 Elevated pro-calcitonin level, all cultures were negative, underlying bacterial infection was ruled out, and patient was restarted on Baricitnib Plan: The patient was seen and evaluated by Dr. Horvath He is down to 5 L high flow nasal cannula He is cleared for discharge from the pulmonary standpoint Would recommend a 10 day course of Eliquis at 2.5 mg twice a day Follow-up in our office in 3-4 weeks' time I, the cosigning physician, performed a history & physical examination of the patient. Lungs sounds with coarse crackles in bilateral bases. Maintaining good O2 saturations in the 90s on 5 liters per minute per nasal cannula. I discussed the assessment and plan of care with my nurse practitioner, Christiane Anna. I attest to the above note as dictated by her.
--- NOTE | 2021-06-06 12:38 | P.EN ---
Patient here with COVID-19 pneumonia for an extended period of time with elevated blood sugars initially steroid-induced although hemoglobin A1c was done and is 8.1 and patient is being sent home on metformin 500 mg twice daily for elevated blood sugars and will need testings supplies to monitor blood sugars before meals and at bedtime for primary care follow-up as this is most likely new onset diabetes mellitus type 2.
--- NOTE | 2021-06-06 16:08 | P.PN ---
Progress Note - Text Progress Note Date: 06/06/21 REASON FOR FOLLOWUP: COVID-19 pneumonia. INTERVAL HISTORY: Patient remains to be afebrile. The patient is breathing comfortably on nasal cannula oxygen. The patient denies having any chest pain. No worsening cough. No abdominal pain and no diarrhea. PHYSICAL EXAMINATION: Blood pressure is 140/90 with a pulse of 70, temperature is 98.7. He is 94% on 8 L nasal cannula. General description is a middle-aged male up in the bed in no distress. Respiratory system: Unlabored breathing, decreased intensity of breath sounds, no wheeze. Heart S1, S2. Regular rate and rhythm. Abdomen soft, no tenderness. LABS: Reviewed IMPRESSION/PLAN: Patient with acute respiratory failure secondary to COVID-19 infection in this patient who has shown clinical improvement. The patient will be going home on supplemental nasal oxygen Along with multivitamins and ascorbic acid, no need for Steroids or antibiotics
[2021-06-07] MEDS ORDERED: APIXABAN 2.5 MG TABLET PO SCH (09:00)
== END 2021-06-06 14:00 | disposition home or self-care (01) | DRG 177 ==
LOC: EC 18:11 → 4SSUR 22:57
PROVIDERS: ADMIT Hospitalist; ATTEND Hospitalist
PROC: XW033H6 Introduction of Other New Technology Monoclonal Antibody into Peripheral Vein, Percutaneous Approach, New Technology Group 6 (ICD-10-PCS; principal; 2021-05-19)
PROC: 3E0F7SF Introduction of Other Gas into Respiratory Tract, Via Natural or Artificial Opening (ICD-10-PCS; 2021-05-19)
PROC: 5A09357 Assistance with Respiratory Ventilation, Less than 24 Consecutive Hours, Continuous Positive Airway Pressure (ICD-10-PCS; 2021-05-26)
PROC: 05HF33Z Insertion of Infusion Device into Left Cephalic Vein, Percutaneous Approach (ICD-10-PCS; 2021-05-29)
DX: U07.1 COVID-19 (principal); J12.82 Pneumonia due to coronavirus disease 2019; J96.01 Acute respiratory failure with hypoxia; E87.2 Acidosis; T38.0X5A Adverse effect of glucocorticoids and synthetic analogues, initial encounter; D69.6 Thrombocytopenia, unspecified; R73.9 Hyperglycemia, unspecified; K76.0 Fatty (change of) liver, not elsewhere classified; E83.42 Hypomagnesemia; E86.0 Dehydration; R00.0 Tachycardia, unspecified; D89.839 Cytokine release syndrome, grade unspecified; G89.29 Other chronic pain; J45.909 Unspecified asthma, uncomplicated; Z79.01 Long term (current) use of anticoagulants; Z87.891 Personal history of nicotine dependence; X58.XXXA Exposure to other specified factors, initial encounter
CPT/HCPCS: 36410; 36415; 71045; 71275; 76937; 80048; 80053; 81003; 82728; 83036; 83605; 83615; 83735; 84145; 84484; 85025; 85379; 85610; 85730; 86140; 87040; 87070; 87205; 87635; 93005; 94640; 94660; 94760; 94762; 96361; 96365; 96375; 99291

== ENCOUNTER → 2021-06-26 | Outpatient (CLI) | payer BC ==
--- NOTE | 2021-06-27 10:34 | ECHOF ---
Referral Reason:I51.7 Cardiomegaly MEASUREMENTS -------- HEIGHT: 185.4 cm WEIGHT: 121.6 kg BP: 148/69 RVIDd: 3.3 cm (< 3.3) IVSd: 1.4 cm (0.6 - 1.1) LVIDd: 3.8 cm (3.9 - 5.3) LVPWd: 1.4 cm (0.6 - 1.1) IVSs: 1.8 cm LVIDs: 2.6 cm LVPWs: 1.8 cm LA Diam: 2.9 cm (2.7 - 3.8) LAESV Index (A-L): 21.28 ml/m Ao Diam: 4.0 cm (2.0 - 3.7) AV Cusp: 2.5 cm (1.5 - 2.6) MV EXCURSION: 24.729 mm (> 18.000) MV EF SLOPE: 81 mm/s (70 - 150) EPSS: 0.5 cm MV E Vic: 0.72 m/s MV DecT: 234 ms MV A Vic: 0.70 m/s MV E/A Ratio: 1.03 FINDINGS -------- Sinus rhythm. This was a technically adequate study. The left ventricular size is normal. There is moderate concentric left ventricular hypertrophy. O verall left ventricular systolic function is normal with, an EF between 60 - 65 %. The right ventricle is mildly enlarged. Normal LA size by volume 22+/-6 ml/m2. The right atrium is normal in size. Interatrial and interventricular septum intact. The aortic valve is trileaflet, and appears structurally normal. No aortic stenosis or regurgitation. The mitral valve is normal. The tricuspid valve appears structurally normal. Unable to estimate RVSP due to inadequate TR jet s pectral doppler profile. There is no pulmonic regurgitation present. The aortic root is dilated measuring 4.0cm. IVC Not well visulized. There is no pericardial effusion. CONCLUSIONS -------- 1. The left ventricular size is normal. 2. There is moderate concentric left ventricular hypertrophy. 3. Overall left ventricular systolic function is normal with, an EF between 60 - 65 %. 4. The right ventricle is mildly enlarged. 5. The aortic valve is trileaflet, and appears structurally normal. No aortic stenosis or regurgitati on. 6. The aortic root is dilated measuring 4.0cm. 7. There is no pericardial effusion. SCOOP FILLER: Catherine Gallegos RDCS
== END | disposition home or self-care (01) ==
LOC: RADECHMAIN 14:50
PROVIDERS: ATTEND Family Medicine
DX: I51.7 Cardiomegaly (principal); I77.819 Aortic ectasia, unspecified site
CPT/HCPCS: 93306

== ENCOUNTER → 2023-05-19 | Outpatient (CLI) | payer BC ==
--- NOTE | 2023-05-19 13:29 | US ---
EXAMINATION TYPE: US scrotum with doppler. Grayscale and color Doppler Duplex imaging performed of t siddharth scrotum. DATE OF EXAM: 05/19/2023 COMPARISON: NONE CLINICAL INDICATION: Male, 43 years old with history of N50.89 DISORDERS OF THE MALE GENITAL ORGANS; Pt states possible ingrown hair right testicle that ruptured yesterday EXAM MEASUREMENTS: TESTICLES: Right Testicle: 4.7 x 2.6 x 3.5 cm Left Testicle: 4.6 x 2.7 x 3.1 cm EPIDIDYMIS HEAD: Right Epididymis: 1.4 cm Left Epididymis: 1.4 cm Doppler performed to assess for testicular vascularity; good bilateral color flow and waveforms are s een. There is no evidence of testicular torsion. Presence of hydroceles: Small amount of fluid right side Presence of varicoceles: No Small calcification within right testicle IMPRESSION: 1. Small right-sided hydrocele.
== END | disposition home or self-care (01) ==
LOC: RADUSWWP 12:58
PROVIDERS: ATTEND Family Medicine
DX: N50.89 Other specified disorders of the male genital organs (principal); N43.3 Hydrocele, unspecified
CPT/HCPCS: 76870; 93975

== ENCOUNTER → 2023-07-30 | Outpatient (CLI) | payer BC ==
--- NOTE | 2023-07-30 12:57 | CA ---
Exercise Stress Test Report Name: Akhil Dixon Exam Date: 07/30/2023 11:02 Exam Location: [place] Stress Ht (in): 73 Wt (lb): 284 BSA: 2.50 Ordering Phys: Elmer Young MD Referring Phys: Evelyn Zurita PAC Technologist: ANDI LOUIS Age: 43 Gender: M : 1980 Procedure CPT: Indications: Z91.89 OTH PERSONAL RISK FACTORS, NOT ELSEWHERE CL ICD-10 Codes: Patient History: Medications: LEXIPRO, ALBUTEROL, SYMBICORT Meds past 24 hrs: Pretest Chest Pain: STRESS TEST Qamar Protocol Exercise Duration (min:sec): 07:[address] Depressions (mm): 0 Angina Score: 0 Ca Score: 7 Resting HR (bpm): 90 Peak HR (bpm): 153 Resting BP (mmHg): 147 / 101 Peak BP (mmHg): 195 / 60 MPHR: 175 Target HR: 149 % MPHR: 87 METS: 8.9 Total Dose: Peak Dose: Atropine: Double Product: 66049 BP Response: Stress Termination: Reached target heart rate Stress Symptoms: No chest pain or symptoms Stress Summary: The patient's target heart rate was achieved, The hemodynamic response to exercise was normal ECG ANALYSIS Resting ECG: Sinus rhythm. Normal conduction. No arrhythmias. Normal repolarization. Stress ECG: No ECG evidence of ischemia with exercise. CONCLUSIONS Patient falls into low-risk group (DTS >= +5). This associates the patient with an annual CV mortality <= 0.5%. 1. Average exercise tolerance 2. Normal ST segment response to stress with no evidence of stress induced ischemia. Dr. Lucia Rutledge MD (Electronically Signed) Final Date: 30 July 2023 12:56
== END | disposition home or self-care (01) ==
LOC: RADNMMAIN 10:32
PROVIDERS: ATTEND Family Medicine
DX: Z91.89 Other specified personal risk factors, not elsewhere classified (principal)
CPT/HCPCS: 93017